=== PATIENT | female | born 1985 | race African-American/Black ===

== ENCOUNTER 2017-02-27 12:17 | Observation (INO) | payer OTHER ==
[~2017-02-27] VITALS: Ht 165.1 cm; Wt 95.3 kg
[~2017-02-27 12:17] MED LIST: ALBU8.5H6 IH; ARIP2TAB PO; BUSP5TAB PO; CHOL100017 PO; DEXL30CA PO; FLUT16SP2 NS; FLUT1DIS IH; GABA-585 PO; MELO-156 PO; MULT-245 PO; RANI75TA95 PO; ZIPR20CA2 PO; [UNRECOGNIZED DRUG - CODE] PO
--- NOTE | 2017-02-27 13:03 | PHYS DOC ---
Past Medical History Past Medical History: Other Additional Past Medical Histor: psuedotumor cerebri Past Surgical History: Other Additional Past Surgical Histo: Adnoidectomy, 2 throat cysts removed. Alcohol Use: None Drug Use: None Adult General Chief Complaint Chief Complaint: PAIN CONTROL HPI HPI Patient is a 31 year old -[place] female who presents with diffuse chest pain. She states started approximately 30 minutes ago. She states it hurts when she coughs. She denies fevers chills nausea vomiting or headache. She 's had a cough for several days. She denies any fevers chills nausea vomiting or shortness of breath. She did take some Robitussin and states that made her feel worse. Review of Systems Review of Systems Constitutional: Denies fever or chills [] Eyes: Denies change in visual acuity, redness, or eye pain [] HENT: Denies nasal congestion or sore throat [] Respiratory: Denies shortness of breath or positive for cough Cardiovascular: No additional information not addressed in HPI [] GI: Denies abdominal pain, nausea, vomiting, bloody stools or diarrhea [] : Denies dysuria or hematuria [] Musculoskeletal: Denies back pain or joint pain [] Integument: Denies rash or skin lesions [] Neurologic: Denies headache, focal weakness or sensory changes [] Endocrine: Denies polyuria or polydipsia [] Current Medications Current Medications Current Medications Medications (Trade) Dose Ordered Sig/Maggy Start Time Stop Time Status Last Admin Dose Admin Aspirin (Children'S Aspirin) 324 mg 1X ONCE 02/27/17 13:45 02/27/17 13:46 DC 02/27/17 13:17 324 MG Morphine Sulfate 2 mg PRN Q15MIN PRN 02/27/17 13:15 02/28/17 13:14 02/27/17 15:22 2 MG Multi-Ingredient Mouthwash/Gargle (Gi Cocktail Single Dose) 15 ml 1X ONCE 02/27/17 15:00 02/27/17 15:01 DC 02/27/17 14:40 15 ML Allergies Allergies Allergies Coded Allergies Type Severity Reaction Last Updated Verified Penicillins Allergy Intermediate Itching 03/31/14 Yes Physical Exam Physical Exam Constitutional: Well developed, well nourished, no acute distress, non-toxic appearance. [] HENT: Normocephalic, atraumatic, bilateral external ears normal, oropharynx moist, no oral exudates, nose normal. [] Eyes: PERRLA, EOMI, conjunctiva normal, no discharge. [] Neck: Normal range of motion, no tenderness, supple, no stridor. [] Cardiovascular:Heart rate regular rhythm, no murmur [] Lungs & Thorax: Bilateral breath sounds clear to auscultation [] Abdomen: Bowel sounds normal, soft, tender to palpation in the right upper quadrant and epigastric area, no masses, no pulsatile masses. [] Skin: Warm, dry, no erythema, no rash. [] Back: No tenderness, no CVA tenderness. [] Extremities: No tenderness, no cyanosis, no clubbing, ROM intact, no edema. [] Neurologic: Alert and oriented X 3, normal motor function, normal sensory function, no focal deficits noted. [] Psychologic: Affect normal, judgement normal, mood normal. [] Current Patient Data Vital Signs Vital Signs Date Time Temp Pulse Resp B/P Pulse Ox O2 Delivery O2 Flow Rate FiO2 02/27/17 15:00 86 29 100 02/27/17 12:17 97.7 111/60 Room Air 97.7 Lab Values Laboratory Tests Test 02/27/17 13:10 White Blood Count 13.3x10^3/uL (4.0-11.0) H Red Blood Count 4.24x10^6/uL (3.50-5.40) Hemoglobin 11.9g/dL (12.0-15.5) L Hematocrit 37.9% (36.0-47.0) Mean Corpuscular Volume 89fL (79-100) Mean Corpuscular Hemoglobin 28pg (25-35) Mean Corpuscular Hemoglobin Concent 32g/dL (31-37) Red Cell Distribution Width 14.2% (11.5-14.5) Platelet Count 171x10^3/uL (140-400) Neutrophils (%) (Auto) 93% (31-73) H Lymphocytes (%) (Auto) 2% (24-48) L Monocytes (%) (Auto) 4% (0-9) Eosinophils (%) (Auto) 0% (0-3) Basophils (%) (Auto) 0% (0-3) Neutrophils # (Auto) 12.4x10^3uL (1.8-7.7) H Lymphocytes # (Auto) 0.2x10^3/uL (1.0-4.8) L Monocytes # (Auto) 0.5x10^3/uL (0.0-1.1) Eosinophils # (Auto) 0.0x10^3/uL (0.0-0.7) Basophils # (Auto) 0.1x10^3/uL (0.0-0.2) Segmented Neutrophils % 81% (35-66) H Band Neutrophils % 13% (0-9) H Lymphocytes % 2% (24-48) L Monocytes % 3% (0-10) Basophils % 1% (0-3) Platelet Estimate Adequate (ADEQUATE) Ovalocytes Few D-Dimer (Shanell) 0.38ug/mlFEU (0.00-0.50) Sodium Level 142mmol/L (136-145) Potassium Level 4.3mmol/L (3.5-5.1) Chloride Level 107mmol/L (98-107) Carbon Dioxide Level 25mmol/L (21-32) Anion Gap 10 (6-14) Blood Urea Nitrogen 8mg/dL (7-20) Creatinine 0.9mg/dL (0.6-1.0) Estimated GFR (Cockcroft-Gault) 89.0 Glucose Level 144mg/dL (70-99) H Calcium Level 9.0mg/dL (8.5-10.1) Magnesium Level 1.7mg/dL (1.8-2.4) L Total Bilirubin 0.8mg/dL (0.2-1.0) Direct Bilirubin 0.1mg/dL (0.0-0.2) Aspartate Amino Transferase (AST) 132U/L (15-37) H Alanine Aminotransferase (ALT) 67U/L (14-59) H Alkaline Phosphatase 115U/L (46-116) Creatine Kinase 1673U/L (26-192) H Creatine Kinase MB (Mass) 0.6ng/mL (0.0-3.6) Creatine Kinase MB Relative Index 0.0% (0-4) Troponin I Quantitative < 0.017ng/mL (0.000-0.055) GP-Bnn-F-Type Natriuretic Peptide 73pg/mL (0-124) Total Protein 7.3g/dL (6.4-8.2) Albumin 3.6g/dL (3.4-5.0) Lipase 134U/L (73-393) Thyroid Stimulating Hormone (TSH) 0.630uIU/mL (0.358-3.74) Laboratory Tests 02/27/17 13:10 Laboratory Tests 02/27/17 13:10 EKG EKG [] Radiology/Procedures Radiology/Procedures [facility] [address] [place] [address] IMAGING REPORT Signed PATIENT: JOSH DELUNA ACCOUNT: [id number] : 1985 LOCATION: ER AGE: 31 SEX: F EXAM STATUS: REG ER ORD. PHYSICIAN: PRESTON PISANO MD REASON: chest pain PROCEDURE: PORTABLE CHEST 1V Portable chest, 02/27/2017: History: Chest pain Comparison is made to a study from 01/30/2014. The heart size and pulmonary vascularity are normal. No pulmonary infiltrates are seen. There is no evidence of pleural fluid. IMPRESSION: No acute cardiopulmonary abnormality is detected. DICTATED and SIGNED BY: ANGEL ROJAS MD DATE: 02/27/17 1331 CC: PRESTON PISANO MD; MINERVA DOAN MD ~ Impressions: Abdominal pain Course & Med Decision Making Course & Med Decision Making Pertinent Labs and Imaging studies reviewed. (See chart for details) D-dimer is negative. She does have pain in her epigastric area and right upper quadrant. We'll admit to the hospitalist and obtained a right upper quadrant ultrasound. Patient is agreeable to plan. She did need to receive Ativan to see if this didn't help her symptoms. Dragon Disclaimer Dragon Disclaimer This electronic medical record was generated, in whole or in part, using a voice recognition dictation system. Departure Departure Impression: Primary Impression: Abdominal pain Disposition: ADMITTED INPATIENT Admitting Physician: Edward James Referrals: MINERVA DOAN MD (PCP) PRESTON PISANO MD Feb 27, 2017 13:03
[2017-02-27] MEDS: MORPHINE SULFATE 2 MG/ML DISP.SYRIN. IV/SQ PRN ×3 (13:17→15:22)
[2017-02-27 13:19] LABS: BASO # 0.1 x10^3/uL (0.0-0.2); BASO % 0 % (0-3); EOS % 0 % (0-3); HEMATOCRIT 37.9 % (36.0-47.0); HEMOGLOBIN 11.9 g/dL (12.0-15.5); LYMPH # 0.2 x10^3/uL (1.0-4.8); LYMPH % 2 % (24-48); MEAN CORPUSCULAR HEMOGLOBIN 28 pg (25-35); MEAN CORPUSCULAR HGB CONC 32 g/dL (31-37); MEAN CORPUSCULAR VOLUME 89 fL (79-100); MONO % 4 % (0-9); NEUT % 93 % (31-73); PLATELET COUNT 171 x10^3/uL (140-400); RED BLOOD COUNT 4.24 x10^6/uL (3.50-5.40); RED CELL DISTRIBUTION WIDTH 14.2 % (11.5-14.5); WHITE BLOOD COUNT 13.3 x10^3/uL (4.0-11.0)
--- NOTE | 2017-02-27 13:34 | RAD ---
Portable chest, 02/27/2017: History: Chest pain Comparison is made to a study from 01/30/2014. The heart size and pulmonary vascularity are normal. No pulmonary infiltrates are seen. There is no evidence of pleural fluid. IMPRESSION: No acute cardiopulmonary abnormality is detected.
[2017-02-27] MEDS ORDERED: ASPIRIN CHEWABLE 81 MG TABLET. PO ONE (13:45)
[2017-02-27 13:47] LABS: CREATININE 0.9 mg/dL (0.6-1.0); POTASSIUM 4.3 mmol/L (3.5-5.1)
[2017-02-27 13:53] LABS: ALBUMIN 3.6 g/dL (3.4-5.0); DIRECT BILIRUBIN 0.1 mg/dL (0.0-0.2); MAGNESIUM 1.7 mg/dL (1.8-2.4); TOTAL BILIRUBIN 0.8 mg/dL (0.2-1.0); TOTAL PROTEIN 7.3 g/dL (6.4-8.2)
[2017-02-27 14:00] LABS: CKMB MASS 0.6 ng/mL (0.0-3.6)
[2017-02-27 14:05] LABS: % BASOS 1 % (0-3); OVALOCYTES FEW; PLT ESTIMATE ADEQUATE (ADEQUATE)
[2017-02-27] MEDS ORDERED: LIDO:MAALOX:DONNATAL 1:1:1 15 ML SINGLE DOSE SWSW ONE (15:00)
[2017-02-27] MEDS ORDERED: FENTANYL PF 100 MCG/2 ML VIAL. IV PRN (15:15)
[2017-02-27] MEDS ORDERED: ONDANSETRON PF 4 MG/2 ML VIAL. IV PRN ×2 (15:15→16:45)
--- NOTE | 2017-02-27 15:17 | EKG ---
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
[2017-02-27] MEDS ORDERED: LORAZEPAM 2 MG/ML VIAL. IV ONE (15:45)
--- NOTE | 2017-02-27 16:07 | RAD ---
Right upper quadrant abdominal ultrasound, 02/27/2017: History: Abdominal pain, abnormal liver function test The gallbladder is within normal limits in size. There is a small echogenic focus in the gallbladder neck with faint posterior acoustic shadowing. This is probably a gallstone. There is a fold or partial septation in the upper portion of the gallbladder. The gallbladder ibrahim are not thickened. The patient was reportedly tender to transducer pressure over the gallbladder region. No bile duct dilatation is evident. The distal common bile duct and pancreas were obscured by overlying bowel. The visualized portions of liver and right kidney are unremarkable. IMPRESSION: Probable cholelithiasis.
[2017-02-27] MEDS ORDERED: IV NORMAL SALINE 1000ML BAG 1,000 ML IV ONE (16:15)
[2017-02-27] MEDS ORDERED: ACETAMINOPHEN 325 MG TABLET. PO PRN (16:45)
--- NOTE | 2017-02-27 16:48 | PDOC1 ---
History and Physical Date of Admission Date of Admission 02/27/17 Identification/Chief Complaint Chief Complaint chest pain Problems: Source Source: Chart review, Patient History of Present Illness History of Present Illness HPI HPI Patient is a 31 year old -Pakistani female who presents with chest pain today. Pt started to have substernal chest pain today, achy, with left shoulder pain, bl rib cage pain, no N/V. But feels sweating, feeling of passing out, subjective fever. Denies tenderness or abd pain. She has been having mild non productive cough, chest pain is worse when cough. She did take some Robitussin and states that made her feel worse. chronic behecet syndrom, fu rheum in [facility], symptom is controlled as per pt. in ER, was found high LFT, ck. LFT is same as 2 years ago. Past Medical History Past Medical History psuedotumor cerebri behecet dz Past Surgical History Past Surgical History Adnoidectomy, 2 throat cysts removed Family History Family History: Coronary Artery Disease Social History Smoke: No ALCOHOL: none Drugs: None Current Problem List Problem List Problems Medical Problems: (1) Abdominal pain Status: Acute Current Medications Current Medications Current Medications Medications (Trade) Dose Ordered Sig/Maggy Start Time Stop Time Status Last Admin Dose Admin Aspirin (Children'S Aspirin) 324 mg 1X ONCE 02/27/17 13:45 02/27/17 13:46 DC 02/27/17 13:17 324 MG Fentanyl Citrate (Fentanyl 2ml Vial) 50 mcg PRN Q2HR PRN 02/27/17 15:15 02/28/17 15:14 Lorazepam 1 mg 1 mg 1X ONCE 02/27/17 15:45 02/27/17 15:46 DC 02/27/17 15:46 1 MG Morphine Sulfate 2 mg PRN Q15MIN PRN 02/27/17 13:15 02/28/17 13:14 02/27/17 15:22 2 MG Multi-Ingredient Mouthwash/Gargle (Gi Cocktail Single Dose) 15 ml 1X ONCE 02/27/17 15:00 02/27/17 15:01 DC 02/27/17 14:40 15 ML Ondansetron HCl (Zofran) 4 mg PRN Q8HRS PRN 02/27/17 15:15 02/28/17 15:14 Sodium Chloride (Iv Sodium Chloride 0.9% 1000ml Bag) 1,000 ml @ 1,000 mls/hr 1X ONCE 02/27/17 16:15 02/27/17 17:14 Allergies Allergies Allergies Coded Allergies Type Severity Reaction Last Updated Verified Penicillins Allergy Intermediate Itching 03/31/14 Yes adhesive Allergy Mild bruising 03/31/14 No ROS Review of System CONSTITUTIONAL: No fever or chills EYES: No recent changes SKIN: No rash or itching CARDIOVASCULAR: No chest pain, syncope, palpitations, or edema RESPIRATORY: No SOB or cough GASTROINTESTINAL: No nausea, vomiting or abdominal pain NEUROLOGICAL: No headaches or weakness ENDOCRINE: No cold or heat intolerance GENITOURINARY: No urgency or frequency of urination MUSCULOSKELETAL: No back pain or joint pain LYMPHATICS: No enlarged lymph nodes PSYCHIATRIC: No anxiety or depression Physical Exam Physical Exam GEN.: No apparent distress. Alert and oriented. HEENT: Head is normocephalic, atraumatic NECK: Supple. LUNGS: Clear to auscultation. HEART: RRR, S1, S2 present. Peripheral pulses intact ABDOMEN: Soft, nontender. Positive bowel sounds. EXTREMITIES: Without any cyanosis. NEUROLOGIC: Normal speech, normal tone PSYCHIATRIC: Normal affect, normal mood. SKIN: No ulcerations Vitals Vitals Vital Signs Date Time Temp Pulse Resp B/P Pulse Ox O2 Delivery O2 Flow Rate FiO2 02/27/17 15:22 24 100 Room Air 02/27/17 14:00 90 02/27/17 12:17 97.7 111/60 97.7 Labs Labs Laboratory Tests Test 02/27/17 13:10 White Blood Count 13.3x10^3/uL (4.0-11.0) Red Blood Count 4.24x10^6/uL (3.50-5.40) Hemoglobin 11.9g/dL (12.0-15.5) Hematocrit 37.9% (36.0-47.0) Mean Corpuscular Volume 89fL (79-100) Mean Corpuscular Hemoglobin 28pg (25-35) Mean Corpuscular Hemoglobin Concent 32g/dL (31-37) Red Cell Distribution Width 14.2% (11.5-14.5) Platelet Count 171x10^3/uL (140-400) Neutrophils (%) (Auto) 93% (31-73) Lymphocytes (%) (Auto) 2% (24-48) Monocytes (%) (Auto) 4% (0-9) Eosinophils (%) (Auto) 0% (0-3) Basophils (%) (Auto) 0% (0-3) Neutrophils # (Auto) 12.4x10^3uL (1.8-7.7) Lymphocytes # (Auto) 0.2x10^3/uL (1.0-4.8) Monocytes # (Auto) 0.5x10^3/uL (0.0-1.1) Eosinophils # (Auto) 0.0x10^3/uL (0.0-0.7) Basophils # (Auto) 0.1x10^3/uL (0.0-0.2) Segmented Neutrophils % 81% (35-66) Band Neutrophils % 13% (0-9) Lymphocytes % 2% (24-48) Monocytes % 3% (0-10) Basophils % 1% (0-3) Platelet Estimate Adequate (ADEQUATE) Ovalocytes Few D-Dimer (Shanell) 0.38ug/mlFEU (0.00-0.50) Sodium Level 142mmol/L (136-145) Potassium Level 4.3mmol/L (3.5-5.1) Chloride Level 107mmol/L (98-107) Carbon Dioxide Level 25mmol/L (21-32) Anion Gap 10 (6-14) Blood Urea Nitrogen 8mg/dL (7-20) Creatinine 0.9mg/dL (0.6-1.0) Estimated GFR (Cockcroft-Gault) 89.0 Glucose Level 144mg/dL (70-99) Calcium Level 9.0mg/dL (8.5-10.1) Magnesium Level 1.7mg/dL (1.8-2.4) Total Bilirubin 0.8mg/dL (0.2-1.0) Direct Bilirubin 0.1mg/dL (0.0-0.2) Aspartate Amino Transf (AST/SGOT) 132U/L (15-37) Alanine Aminotransferase (ALT/SGPT) 67U/L (14-59) Alkaline Phosphatase 115U/L (46-116) Creatine Kinase 1673U/L (26-192) Creatine Kinase MB (Mass) 0.6ng/mL (0.0-3.6) Creatine Kinase MB Relative Index 0.0% (0-4) Troponin I Quantitative < 0.017ng/mL (0.000-0.055) FF-Rwq-C-Type Natriuretic Peptide 73pg/mL (0-124) Total Protein 7.3g/dL (6.4-8.2) Albumin 3.6g/dL (3.4-5.0) Lipase 134U/L (73-393) Thyroid Stimulating Hormone (TSH) 0.630uIU/mL (0.358-3.74) Laboratory Tests Test 02/27/17 13:10 White Blood Count 13.3x10^3/uL (4.0-11.0) Red Blood Count 4.24x10^6/uL (3.50-5.40) Hemoglobin 11.9g/dL (12.0-15.5) Hematocrit 37.9% (36.0-47.0) Mean Corpuscular Volume 89fL (79-100) Mean Corpuscular Hemoglobin 28pg (25-35) Mean Corpuscular Hemoglobin Concent 32g/dL (31-37) Red Cell Distribution Width 14.2% (11.5-14.5) Platelet Count 171x10^3/uL (140-400) Neutrophils (%) (Auto) 93% (31-73) Lymphocytes (%) (Auto) 2% (24-48) Monocytes (%) (Auto) 4% (0-9) Eosinophils (%) (Auto) 0% (0-3) Basophils (%) (Auto) 0% (0-3) Neutrophils # (Auto) 12.4x10^3uL (1.8-7.7) Lymphocytes # (Auto) 0.2x10^3/uL (1.0-4.8) Monocytes # (Auto) 0.5x10^3/uL (0.0-1.1) Eosinophils # (Auto) 0.0x10^3/uL (0.0-0.7) Basophils # (Auto) 0.1x10^3/uL (0.0-0.2) Segmented Neutrophils % 81% (35-66) Band Neutrophils % 13% (0-9) Lymphocytes % 2% (24-48) Monocytes % 3% (0-10) Basophils % 1% (0-3) Platelet Estimate Adequate (ADEQUATE) Ovalocytes Few D-Dimer (Shanell) 0.38ug/mlFEU (0.00-0.50) Sodium Level 142mmol/L (136-145) Potassium Level 4.3mmol/L (3.5-5.1) Chloride Level 107mmol/L (98-107) Carbon Dioxide Level 25mmol/L (21-32) Anion Gap 10 (6-14) Blood Urea Nitrogen 8mg/dL (7-20) Creatinine 0.9mg/dL (0.6-1.0) Estimated GFR (Cockcroft-Gault) 89.0 Glucose Level 144mg/dL (70-99) Calcium Level 9.0mg/dL (8.5-10.1) Magnesium Level 1.7mg/dL (1.8-2.4) Total Bilirubin 0.8mg/dL (0.2-1.0) Direct Bilirubin 0.1mg/dL (0.0-0.2) Aspartate Amino Transf (AST/SGOT) 132U/L (15-37) Alanine Aminotransferase (ALT/SGPT) 67U/L (14-59) Alkaline Phosphatase 115U/L (46-116) Creatine Kinase 1673U/L (26-192) Creatine Kinase MB (Mass) 0.6ng/mL (0.0-3.6) Creatine Kinase MB Relative Index 0.0% (0-4) Troponin I Quantitative < 0.017ng/mL (0.000-0.055) SU-Vfv-I-Type Natriuretic Peptide 73pg/mL (0-124) Total Protein 7.3g/dL (6.4-8.2) Albumin 3.6g/dL (3.4-5.0) Lipase 134U/L (73-393) Thyroid Stimulating Hormone (TSH) 0.630uIU/mL (0.358-3.74) VTE Prophylaxis Ordered VTE Prophylaxis Devices: Yes VTE Pharmacological Prophylaxi: Yes Assessment/Plan Assessment/Plan 1. chest pain, need to rule out unstable angina 2. behcet dz, chronic 3. obesity 4. depression 5. elevated transaminites 6. high CK 7. possible cholelithiasis in [place] wo abd pain plan: 1. card, gi consult 2. repeat CE, lipid panel, LFT, CK echo 3. cont home meds, need to verify dvt , gi ppx ASHLIE FITZGERALD MD Feb 27, 2017 16:48
[2017-02-27 17:00] VITALS: BP 105/57
[2017-02-27] MEDS ORDERED: ALBUTEROL SULFATE 2.5 MG/3 ML NEBU. NEB PRN (17:00)
[2017-02-27] MEDS: ENOXAPARIN 40 MG/0.4 ML SYRINGE. SQ SCH (18:00)
[2017-02-27 19:30] VITALS: BP 105/68
[2017-02-27] MEDS ORDERED: GABAPENTIN 100 MG CAPSULE. PO SCH (21:00)
[2017-02-27 23:20] VITALS: BP 111/68
[2017-02-28] VITALS (11 sets, daily range): BP systolic 99–117; BP diastolic 59–75
[2017-02-28 04:09] LABS: BASO % 0 % (0-3); EOS % 2 % (0-3); HEMATOCRIT 32.8 % (36.0-47.0); HEMOGLOBIN 10.5 g/dL (12.0-15.5); LYMPH # 1.1 x10^3/uL (1.0-4.8); LYMPH % 16 % (24-48); MEAN CORPUSCULAR HEMOGLOBIN 28 pg (25-35); MEAN CORPUSCULAR HGB CONC 32 g/dL (31-37); MEAN CORPUSCULAR VOLUME 88 fL (79-100); MONO % 12 % (0-9); NEUT % 71 % (31-73); PLATELET COUNT 160 x10^3/uL (140-400); RED BLOOD COUNT 3.71 x10^6/uL (3.50-5.40); WHITE BLOOD COUNT 7.1 x10^3/uL (4.0-11.0)
[2017-02-28 04:28] LABS: ALBUMIN 2.9 g/dL (3.4-5.0); ALBUMIN/GLOBULIN RATIO 0.9 (1.0-1.7); CALCIUM 8.5 mg/dL (8.5-10.1); CREATININE 0.8 mg/dL (0.6-1.0); GFR 101.9; POTASSIUM 3.9 mmol/L (3.5-5.1); TOTAL BILIRUBIN 0.5 mg/dL (0.2-1.0); TOTAL PROTEIN 6.1 g/dL (6.4-8.2)
[2017-02-28 05:02] LABS: DIRECT BILIRUBIN 0.1 mg/dL (0.0-0.2); TOTAL BILIRUBIN 0.5 mg/dL (0.2-1.0); TOTAL PROTEIN 6.2 g/dL (6.4-8.2)
[2017-02-28 05:11] LABS: CHOLESTEROL/HDL RATIO 2.4
[2017-02-28 05:15] LABS: CKMB MASS 0.5 ng/mL (0.0-3.6)
[2017-02-28] MEDS: GUAIFENESIN/CODEINE 100mg/10mg 5 ML LIQUID. PO PRN ×2 (06:17→19:59)
[2017-02-28] MEDS: busPIRone 5 MG TABLET. PO SCH (09:00)
--- NOTE | 2017-02-28 09:04 | PDOC2 ---
GI CONSULT Reason For Consult: High LFTs HPI: HPI: 31 y/o AA female evaluated in the ER for pain under ribs radiating to midchest and left shoulder. Pain began yesterday after taking Robitussin (for 4 days of dry cough w/ stuffy nose) and eating cereal. Aggravating factors include laying down. No similar symptoms previously. Cardiology has been asked to see ; she is to have an echocardiogram shortly. Currently only has pain in left shoulder. GI asked to see re: abnormal LFTs. Labs include: Hgb 11.9 (now 10.5) , elevated CPK, AST 132 (now 122), ALT 67 (now 116), Alk Phos 115 (now 123). H/ o some elevation in transaminases in 2014 (AST 111, ALT 63). Abd US showed probable cholelithiasis. PMH is significant for Behcet's disease; she reports h/o oral, genital, and stomach ulcers w/ skin lesions and has been on Imuran for about 4 months. Additional h/o GERD w/ good control on Dexilant QD and ranitidine PRN. Believes had EGD @ [facility] which revealed a gastric ulcer ~2 years ago, also recalls previously colonoscopy (unsure where, unsure results). Denies diarrhea or constipation. Has occasional bleeding (bright red blood on the toilet tissue ). Denies NSAID use (note home med list includes Meloxicam which she denies). Denies weight loss, n/v. PMH: PMH: Behcet's (follows w/ rheum at [facility], h/o oral/genital/GI ulcers and skin lesions), asthma, depression, GERD, pseudotumor cerebri, tonsillectomy FH: Family History: No pertinent hx Social History: Smoke: No ALCOHOL: none Drugs: None ROS: GEN: Denies fevers, chills, sweats HEENT: Denies blurred vision, sore throat CV: Denies chest pain RESP: Denies shortness of air, cough GI: Per HPI : Denies hematuria, dysuria ENDO: Denies weight changes NEURO: Denies confusion, dizziness MSK: Denies weakness, joint pain/swelling SKIN: Denies jaundice, pruritus VItals: Vitals: Vital Signs Date Time Temp Pulse Resp B/P Pulse Ox O2 Delivery O2 Flow Rate FiO2 02/28/17 07:00 97.9 78 18 99/63 98 Room Air 97.9 Labs: Labs: Laboratory Tests Test 02/27/17 13:10 02/27/17 18:41 02/28/17 03:25 02/28/17 03:55 White Blood Count 13.3x10^3/uL (4.0-11.0) 7.1x10^3/uL (4.0-11.0) Red Blood Count 4.24x10^6/uL (3.50-5.40) 3.71x10^6/uL (3.50-5.40) Hemoglobin 11.9g/dL (12.0-15.5) 10.5g/dL (12.0-15.5) Hematocrit 37.9% (36.0-47.0) 32.8% (36.0-47.0) Mean Corpuscular Volume 89fL (79-100) 88fL (79-100) Mean Corpuscular Hemoglobin 28pg (25-35) 28pg (25-35) Mean Corpuscular Hemoglobin Concent 32g/dL (31-37) 32g/dL (31-37) Red Cell Distribution Width 14.2% (11.5-14.5) 14.0% (11.5-14.5) Platelet Count 171x10^3/uL (140-400) 160x10^3/uL (140-400) Neutrophils (%) (Auto) 93% (31-73) 71% (31-73) Lymphocytes (%) (Auto) 2% (24-48) 16% (24-48) Monocytes (%) (Auto) 4% (0-9) 12% (0-9) Eosinophils (%) (Auto) 0% (0-3) 2% (0-3) Basophils (%) (Auto) 0% (0-3) 0% (0-3) Neutrophils # (Auto) 12.4x10^3uL (1.8-7.7) 5.0x10^3uL (1.8-7.7) Lymphocytes # (Auto) 0.2x10^3/uL (1.0-4.8) 1.1x10^3/uL (1.0-4.8) Monocytes # (Auto) 0.5x10^3/uL (0.0-1.1) 0.8x10^3/uL (0.0-1.1) Eosinophils # (Auto) 0.0x10^3/uL (0.0-0.7) 0.1x10^3/uL (0.0-0.7) Basophils # (Auto) 0.1x10^3/uL (0.0-0.2) 0.0x10^3/uL (0.0-0.2) Segmented Neutrophils % 81% (35-66) Band Neutrophils % 13% (0-9) Lymphocytes % 2% (24-48) Monocytes % 3% (0-10) Basophils % 1% (0-3) Platelet Estimate Adequate (ADEQUATE) Ovalocytes Few D-Dimer (Shanell) 0.38ug/mlFEU (0.00-0.50) Sodium Level 142mmol/L (136-145) 143mmol/L (136-145) Potassium Level 4.3mmol/L (3.5-5.1) 3.9mmol/L (3.5-5.1) Chloride Level 107mmol/L (98-107) 109mmol/L (98-107) Carbon Dioxide Level 25mmol/L (21-32) 26mmol/L (21-32) Anion Gap 10 (6-14) 8 (6-14) Blood Urea Nitrogen 8mg/dL (7-20) 7mg/dL (7-20) Creatinine 0.9mg/dL (0.6-1.0) 0.8mg/dL (0.6-1.0) Estimated GFR (Cockcroft-Gault) 89.0 101.9 Glucose Level 144mg/dL (70-99) 80mg/dL (70-99) Calcium Level 9.0mg/dL (8.5-10.1) 8.5mg/dL (8.5-10.1) Magnesium Level 1.7mg/dL (1.8-2.4) Total Bilirubin 0.8mg/dL (0.2-1.0) 0.5mg/dL (0.2-1.0) Direct Bilirubin 0.1mg/dL (0.0-0.2) 0.1mg/dL (0.0-0.2) Aspartate Amino Transf (AST/SGOT) 132U/L (15-37) 122U/L (15-37) Alanine Aminotransferase (ALT/SGPT) 67U/L (14-59) 116U/L (14-59) Alkaline Phosphatase 115U/L (46-116) 123U/L (46-116) Creatine Kinase 1673U/L (26-192) 1388U/L (26-192) Creatine Kinase MB (Mass) 0.6ng/mL (0.0-3.6) 0.5ng/mL (0.0-3.6) Creatine Kinase MB Relative Index 0.0% (0-4) 0.0% (0-4) Troponin I Quantitative < 0.017ng/mL (0.000-0.055) < 0.017ng/mL (0.000-0.055) < 0.017ng/mL (0.000-0.055) MO-Xwp-F-Type Natriuretic Peptide 73pg/mL (0-124) Total Protein 7.3g/dL (6.4-8.2) 6.2g/dL (6.4-8.2) Albumin 3.6g/dL (3.4-5.0) 3.0g/dL (3.4-5.0) Lipase 134U/L (73-393) Thyroid Stimulating Hormone (TSH) 0.630uIU/mL (0.358-3.74) BUN/Creatinine Ratio 9 (6-20) Albumin/Globulin Ratio 0.9 (1.0-1.7) Triglycerides Level 26mg/dL (0-150) Cholesterol Level 149mg/dL (0-200) LDL Cholesterol, Calculated 83mg/dL (0-100) VLDL Cholesterol, Calculated 5mg/dL (0-40) HDL Cholesterol 61mg/dL (40-60) Cholesterol/HDL Ratio 2.4 Allergies: Coded Allergies: Penicillins (Verified Allergy, Intermediate, Itching, 03/31/14) adhesive (Verified Allergy, Mild, bruising, 02/28/17) Medications: Current Medications Medications (Trade) Dose Ordered Sig/Maggy Route PRN Reason Start Time Stop Time Status Last Admin Dose Admin Aspirin (Children'S Aspirin) 324 mg 1X ONCE PO 02/27/17 13:45 02/27/17 13:46 DC 02/27/17 13:17 Morphine Sulfate 2 mg PRN Q15MIN PRN IV/SQ PAIN GREATER THAN 3/10 02/27/17 13:15 02/28/17 13:14 02/27/17 15:22 Multi-Ingredient Mouthwash/Gargle (Gi Cocktail Single Dose) 15 ml 1X ONCE SWSW 02/27/17 15:00 02/27/17 15:01 DC 02/27/17 14:40 Lorazepam 1 mg 1 mg 1X ONCE IV 02/27/17 15:45 02/27/17 15:46 DC 02/27/17 15:46 Sodium Chloride (Iv Sodium Chloride 0.9% 1000ml Bag) 1,000 ml @ 1,000 mls/hr 1X ONCE IV 02/27/17 16:15 02/27/17 17:14 DC 02/27/17 16:15 Guaifenesin/ Codeine Phosphate (Robitussin Ac) 5 ml PRN Q6HRS PRN PO COUGH 02/27/17 16:45 02/28/17 06:17 Imaging: Imaging: CXR IMPRESSION: No acute cardiopulmonary abnormality is detected. Abd US The gallbladder is within normal limits in size. There is a small echogenic focus in the gallbladder neck with faint posterior acoustic shadowing. This is probably a gallstone. There is a fold or partial septation in the upper portion of the gallbladder. The gallbladder ibrahim are not thickened. The patient was reportedly tender to transducer pressure over the gallbladder region. No bile duct dilatation is evident. The distal common bile duct and pancreas were obscured by overlying bowel. The visualized portions of liver and right kidney are unremarkable. IMPRESSION: Probable cholelithiasis. 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 Will check additional labs: Hep panel, GARRETT, AMA, ASMA. ?LFTs related to Imuran Update: EGD w/ Dr. De La Cruz 09/2013: normal esophagus, stomach, duodenum, empiric esophageal dilation to 52Fr. Random esophagus biopsies w/ increased inflammation (no Smith's or EoE), random gastric biopsy negative for H. pylori. [facility] Feb 28, 2017 09:04
--- NOTE | 2017-02-28 09:36 | PDOC ---
PROGRESS NOTES Chief Complaint Chief Complaint Chest/shoulder pain, elevated CPK asthma obesity BMI 35 Elevated LFTs, abnormal abd US, possible cholelithiasis H/o Behcet's on Imuran GERD History of Present Illness History of Present Illness pain with deep breathing cough for days discussed with CV, plan echo, risk low + traore sign on US report Vitals Vitals Vital Signs Date Time Temp Pulse Resp B/P Pulse Ox O2 Delivery O2 Flow Rate FiO2 02/28/17 07:00 97.9 78 18 99/63 98 Room Air 97.9 Physical Exam General: Alert, Oriented X3, Cooperative, No acute distress Heart: Regular rate, No murmurs Lungs: Clear Abdomen: Soft (obese) Extremities: No clubbing, No cyanosis Skin: No rashes Labs LABS Laboratory Tests Test 02/27/17 13:10 02/27/17 18:41 02/28/17 03:25 02/28/17 03:55 White Blood Count 13.3x10^3/uL (4.0-11.0) 7.1x10^3/uL (4.0-11.0) Red Blood Count 4.24x10^6/uL (3.50-5.40) 3.71x10^6/uL (3.50-5.40) Hemoglobin 11.9g/dL (12.0-15.5) 10.5g/dL (12.0-15.5) Hematocrit 37.9% (36.0-47.0) 32.8% (36.0-47.0) Mean Corpuscular Volume 89fL (79-100) 88fL (79-100) Mean Corpuscular Hemoglobin 28pg (25-35) 28pg (25-35) Mean Corpuscular Hemoglobin Concent 32g/dL (31-37) 32g/dL (31-37) Red Cell Distribution Width 14.2% (11.5-14.5) 14.0% (11.5-14.5) Platelet Count 171x10^3/uL (140-400) 160x10^3/uL (140-400) Neutrophils (%) (Auto) 93% (31-73) 71% (31-73) Lymphocytes (%) (Auto) 2% (24-48) 16% (24-48) Monocytes (%) (Auto) 4% (0-9) 12% (0-9) Eosinophils (%) (Auto) 0% (0-3) 2% (0-3) Basophils (%) (Auto) 0% (0-3) 0% (0-3) Neutrophils # (Auto) 12.4x10^3uL (1.8-7.7) 5.0x10^3uL (1.8-7.7) Lymphocytes # (Auto) 0.2x10^3/uL (1.0-4.8) 1.1x10^3/uL (1.0-4.8) Monocytes # (Auto) 0.5x10^3/uL (0.0-1.1) 0.8x10^3/uL (0.0-1.1) Eosinophils # (Auto) 0.0x10^3/uL (0.0-0.7) 0.1x10^3/uL (0.0-0.7) Basophils # (Auto) 0.1x10^3/uL (0.0-0.2) 0.0x10^3/uL (0.0-0.2) Segmented Neutrophils % 81% (35-66) Band Neutrophils % 13% (0-9) Lymphocytes % 2% (24-48) Monocytes % 3% (0-10) Basophils % 1% (0-3) Platelet Estimate Adequate (ADEQUATE) Ovalocytes Few D-Dimer (Shanell) 0.38ug/mlFEU (0.00-0.50) Sodium Level 142mmol/L (136-145) 143mmol/L (136-145) Potassium Level 4.3mmol/L (3.5-5.1) 3.9mmol/L (3.5-5.1) Chloride Level 107mmol/L (98-107) 109mmol/L (98-107) Carbon Dioxide Level 25mmol/L (21-32) 26mmol/L (21-32) Anion Gap 10 (6-14) 8 (6-14) Blood Urea Nitrogen 8mg/dL (7-20) 7mg/dL (7-20) Creatinine 0.9mg/dL (0.6-1.0) 0.8mg/dL (0.6-1.0) Estimated GFR (Cockcroft-Gault) 89.0 101.9 Glucose Level 144mg/dL (70-99) 80mg/dL (70-99) Calcium Level 9.0mg/dL (8.5-10.1) 8.5mg/dL (8.5-10.1) Magnesium Level 1.7mg/dL (1.8-2.4) Total Bilirubin 0.8mg/dL (0.2-1.0) 0.5mg/dL (0.2-1.0) Direct Bilirubin 0.1mg/dL (0.0-0.2) 0.1mg/dL (0.0-0.2) Aspartate Amino Transf (AST/SGOT) 132U/L (15-37) 122U/L (15-37) Alanine Aminotransferase (ALT/SGPT) 67U/L (14-59) 116U/L (14-59) Alkaline Phosphatase 115U/L (46-116) 123U/L (46-116) Creatine Kinase 1673U/L (26-192) 1388U/L (26-192) Creatine Kinase MB (Mass) 0.6ng/mL (0.0-3.6) 0.5ng/mL (0.0-3.6) Creatine Kinase MB Relative Index 0.0% (0-4) 0.0% (0-4) Troponin I Quantitative < 0.017ng/mL (0.000-0.055) < 0.017ng/mL (0.000-0.055) < 0.017ng/mL (0.000-0.055) QK-Gjm-[id number]-Type Natriuretic Peptide 73pg/mL (0-124) Total Protein 7.3g/dL (6.4-8.2) 6.2g/dL (6.4-8.2) Albumin 3.6g/dL (3.4-5.0) 3.0g/dL (3.4-5.0) Lipase 134U/L (73-393) Thyroid Stimulating Hormone (TSH) 0.630uIU/mL (0.358-3.74) BUN/Creatinine Ratio 9 (6-20) Albumin/Globulin Ratio 0.9 (1.0-1.7) Triglycerides Level 26mg/dL (0-150) Cholesterol Level 149mg/dL (0-200) LDL Cholesterol, Calculated 83mg/dL (0-100) VLDL Cholesterol, Calculated 5mg/dL (0-40) HDL Cholesterol 61mg/dL (40-60) Cholesterol/HDL Ratio 2.4 Review of Systems Review of Systems no n.vd. abd pain Assessment and Plan Assessmemt and Plan consult gen surg. transaminitis no clear cholecystitis, stone on US only Problems Medical Problems: (1) Abdominal pain Status: Acute Problems: Comment Review of Relevant I have reviewed the following items grupo (where applicable) has been applied. Labs Laboratory Tests Test 02/27/17 13:10 02/27/17 18:41 02/28/17 03:25 02/28/17 03:55 White Blood Count 13.3x10^3/uL (4.0-11.0) 7.1x10^3/uL (4.0-11.0) Red Blood Count 4.24x10^6/uL (3.50-5.40) 3.71x10^6/uL (3.50-5.40) Hemoglobin 11.9g/dL (12.0-15.5) 10.5g/dL (12.0-15.5) Hematocrit 37.9% (36.0-47.0) 32.8% (36.0-47.0) Mean Corpuscular Volume 89fL (79-100) 88fL (79-100) Mean Corpuscular Hemoglobin 28pg (25-35) 28pg (25-35) Mean Corpuscular Hemoglobin Concent 32g/dL (31-37) 32g/dL (31-37) Red Cell Distribution Width 14.2% (11.5-14.5) 14.0% (11.5-14.5) Platelet Count 171x10^3/uL (140-400) 160x10^3/uL (140-400) Neutrophils (%) (Auto) 93% (31-73) 71% (31-73) Lymphocytes (%) (Auto) 2% (24-48) 16% (24-48) Monocytes (%) (Auto) 4% (0-9) 12% (0-9) Eosinophils (%) (Auto) 0% (0-3) 2% (0-3) Basophils (%) (Auto) 0% (0-3) 0% (0-3) Neutrophils # (Auto) 12.4x10^3uL (1.8-7.7) 5.0x10^3uL (1.8-7.7) Lymphocytes # (Auto) 0.2x10^3/uL (1.0-4.8) 1.1x10^3/uL (1.0-4.8) Monocytes # (Auto) 0.5x10^3/uL (0.0-1.1) 0.8x10^3/uL (0.0-1.1) Eosinophils # (Auto) 0.0x10^3/uL (0.0-0.7) 0.1x10^3/uL (0.0-0.7) Basophils # (Auto) 0.1x10^3/uL (0.0-0.2) 0.0x10^3/uL (0.0-0.2) Segmented Neutrophils % 81% (35-66) Band Neutrophils % 13% (0-9) Lymphocytes % 2% (24-48) Monocytes % 3% (0-10) Basophils % 1% (0-3) Platelet Estimate Adequate (ADEQUATE) Ovalocytes Few D-Dimer (Shanell) 0.38ug/mlFEU (0.00-0.50) Sodium Level 142mmol/L (136-145) 143mmol/L (136-145) Potassium Level 4.3mmol/L (3.5-5.1) 3.9mmol/L (3.5-5.1) Chloride Level 107mmol/L (98-107) 109mmol/L (98-107) Carbon Dioxide Level 25mmol/L (21-32) 26mmol/L (21-32) Anion Gap 10 (6-14) 8 (6-14) Blood Urea Nitrogen 8mg/dL (7-20) 7mg/dL (7-20) Creatinine 0.9mg/dL (0.6-1.0) 0.8mg/dL (0.6-1.0) Estimated GFR (Cockcroft-Gault) 89.0 101.9 Glucose Level 144mg/dL (70-99) 80mg/dL (70-99) Calcium Level 9.0mg/dL (8.5-10.1) 8.5mg/dL (8.5-10.1) Magnesium Level 1.7mg/dL (1.8-2.4) Total Bilirubin 0.8mg/dL (0.2-1.0) 0.5mg/dL (0.2-1.0) Direct Bilirubin 0.1mg/dL (0.0-0.2) 0.1mg/dL (0.0-0.2) Aspartate Amino Transf (AST/SGOT) 132U/L (15-37) 122U/L (15-37) Alanine Aminotransferase (ALT/SGPT) 67U/L (14-59) 116U/L (14-59) Alkaline Phosphatase 115U/L (46-116) 123U/L (46-116) Creatine Kinase 1673U/L (26-192) 1388U/L (26-192) Creatine Kinase MB (Mass) 0.6ng/mL (0.0-3.6) 0.5ng/mL (0.0-3.6) Creatine Kinase MB Relative Index 0.0% (0-4) 0.0% (0-4) Troponin I Quantitative < 0.017ng/mL (0.000-0.055) < 0.017ng/mL (0.000-0.055) < 0.017ng/mL (0.000-0.055) SZ-Etc-I-Type Natriuretic Peptide 73pg/mL (0-124) Total Protein 7.3g/dL (6.4-8.2) 6.2g/dL (6.4-8.2) Albumin 3.6g/dL (3.4-5.0) 3.0g/dL (3.4-5.0) Lipase 134U/L (73-393) Thyroid Stimulating Hormone (TSH) 0.630uIU/mL (0.358-3.74) BUN/Creatinine Ratio 9 (6-20) Albumin/Globulin Ratio 0.9 (1.0-1.7) Triglycerides Level 26mg/dL (0-150) Cholesterol Level 149mg/dL (0-200) LDL Cholesterol, Calculated 83mg/dL (0-100) VLDL Cholesterol, Calculated 5mg/dL (0-40) HDL Cholesterol 61mg/dL (40-60) Cholesterol/HDL Ratio 2.4 Laboratory Tests Test 02/27/17 13:10 02/27/17 18:41 02/28/17 03:25 02/28/17 03:55 White Blood Count 13.3x10^3/uL (4.0-11.0) 7.1x10^3/uL (4.0-11.0) Red Blood Count 4.24x10^6/uL (3.50-5.40) 3.71x10^6/uL (3.50-5.40) Hemoglobin 11.9g/dL (12.0-15.5) 10.5g/dL (12.0-15.5) Hematocrit 37.9% (36.0-47.0) 32.8% (36.0-47.0) Mean Corpuscular Volume 89fL (79-100) 88fL (79-100) Mean Corpuscular Hemoglobin 28pg (25-35) 28pg (25-35) Mean Corpuscular Hemoglobin Concent 32g/dL (31-37) 32g/dL (31-37) Red Cell Distribution Width 14.2% (11.5-14.5) 14.0% (11.5-14.5) Platelet Count 171x10^3/uL (140-400) 160x10^3/uL (140-400) Neutrophils (%) (Auto) 93% (31-73) 71% (31-73) Lymphocytes (%) (Auto) 2% (24-48) 16% (24-48) Monocytes (%) (Auto) 4% (0-9) 12% (0-9) Eosinophils (%) (Auto) 0% (0-3) 2% (0-3) Basophils (%) (Auto) 0% (0-3) 0% (0-3) Neutrophils # (Auto) 12.4x10^3uL (1.8-7.7) 5.0x10^3uL (1.8-7.7) Lymphocytes # (Auto) 0.2x10^3/uL (1.0-4.8) 1.1x10^3/uL (1.0-4.8) Monocytes # (Auto) 0.5x10^3/uL (0.0-1.1) 0.8x10^3/uL (0.0-1.1) Eosinophils # (Auto) 0.0x10^3/uL (0.0-0.7) 0.1x10^3/uL (0.0-0.7) Basophils # (Auto) 0.1x10^3/uL (0.0-0.2) 0.0x10^3/uL (0.0-0.2) Segmented Neutrophils % 81% (35-66) Band Neutrophils % 13% (0-9) Lymphocytes % 2% (24-48) Monocytes % 3% (0-10) Basophils % 1% (0-3) Platelet Estimate Adequate (ADEQUATE) Ovalocytes Few D-Dimer (Shanell) 0.38ug/mlFEU (0.00-0.50) Sodium Level 142mmol/L (136-145) 143mmol/L (136-145) Potassium Level 4.3mmol/L (3.5-5.1) 3.9mmol/L (3.5-5.1) Chloride Level 107mmol/L (98-107) 109mmol/L (98-107) Carbon Dioxide Level 25mmol/L (21-32) 26mmol/L (21-32) Anion Gap 10 (6-14) 8 (6-14) Blood Urea Nitrogen 8mg/dL (7-20) 7mg/dL (7-20) Creatinine 0.9mg/dL (0.6-1.0) 0.8mg/dL (0.6-1.0) Estimated GFR (Cockcroft-Gault) 89.0 101.9 Glucose Level 144mg/dL (70-99) 80mg/dL (70-99) Calcium Level 9.0mg/dL (8.5-10.1) 8.5mg/dL (8.5-10.1) Magnesium Level 1.7mg/dL (1.8-2.4) Total Bilirubin 0.8mg/dL (0.2-1.0) 0.5mg/dL (0.2-1.0) Direct Bilirubin 0.1mg/dL (0.0-0.2) 0.1mg/dL (0.0-0.2) Aspartate Amino Transf (AST/SGOT) 132U/L (15-37) 122U/L (15-37) Alanine Aminotransferase (ALT/SGPT) 67U/L (14-59) 116U/L (14-59) Alkaline Phosphatase 115U/L (46-116) 123U/L (46-116) Creatine Kinase 1673U/L (26-192) 1388U/L (26-192) Creatine Kinase MB (Mass) 0.6ng/mL (0.0-3.6) 0.5ng/mL (0.0-3.6) Creatine Kinase MB Relative Index 0.0% (0-4) 0.0% (0-4) Troponin I Quantitative < 0.017ng/mL (0.000-0.055) < 0.017ng/mL (0.000-0.055) < 0.017ng/mL (0.000-0.055) DQ-Zpx-J-Type Natriuretic Peptide 73pg/mL (0-124) Total Protein 7.3g/dL (6.4-8.2) 6.2g/dL (6.4-8.2) Albumin 3.6g/dL (3.4-5.0) 3.0g/dL (3.4-5.0) Lipase 134U/L (73-393) Thyroid Stimulating Hormone (TSH) 0.630uIU/mL (0.358-3.74) BUN/Creatinine Ratio 9 (6-20) Albumin/Globulin Ratio 0.9 (1.0-1.7) Triglycerides Level 26mg/dL (0-150) Cholesterol Level 149mg/dL (0-200) LDL Cholesterol, Calculated 83mg/dL (0-100) VLDL Cholesterol, Calculated 5mg/dL (0-40) HDL Cholesterol 61mg/dL (40-60) Cholesterol/HDL Ratio 2.4 Medications Current Medications Aspirin (Children'S Aspirin) 324 mg 1X ONCE PO Last administered on 02/27/17t 13:17; Start 02/27/17 at 13:45; Stop 02/27/17 at 13:46; Status DC Morphine Sulfate 2 mg PRN Q15MIN PRN IV/SQ PAIN GREATER THAN 3/10 Last administered on 02/27/17 15:22; Start 02/27/17 at 13:15; Stop 02/28/17 at 13:14 Multi-Ingredient Mouthwash/Gargle (Gi Cocktail Single Dose) 15 ml 1X ONCE SWSW Last administered on 02/27/17 14:40; Start 02/27/17 at 15:00; Stop 02/27/17 at 15:01; Status DC Ondansetron HCl (Zofran) 4 mg PRN Q8HRS PRN IV NAUSEA/VOMITING; Start 02/27/17 at 15:15; Stop 02/28/17 at 15:14 Fentanyl Citrate (Fentanyl 2ml Vial) 50 mcg PRN Q2HR PRN IV PAIN; Start at 15:15; Stop 02/28/17 at 15:14 Lorazepam 1 mg 1 mg 1X ONCE IV Last administered on 02/27/17 15:46; Start 02/27 at 15:45; Stop 02/27/17 at 15:46; Status DC Sodium Chloride (Iv Sodium Chloride 0.9% 1000ml Bag) 1,000 ml @ 1,000 mls/hr 1X ONCE IV Last administered on 02/27/17 16:15; Start 02/27/17 at 16:15; Stop 02/27/17 at 17:14; Status DC Aripiprazole (Abilify) 2 mg DAILY PO ; Start 02/28/17 at 09:00 Buspirone HCl (Buspar) 5 mg DAILY PO ; Start 02/28/17 at 09:00 Gabapentin (Neurontin) 100 mg TID PO ; Start 02/27/17 at 21:00; Stop 02/27/17 at 21:22; Status DC Acetaminophen (Tylenol) 650 mg PRN Q6HRS PRN PO FEVER; Start 02/27/17 at 16:45 Ondansetron HCl (Zofran) 4 mg PRN Q6HRS PRN IV NAUSEA/VOMITING; Start 02/27/17 at 16:45 Enoxaparin Sodium (Lovenox 40mg Syringe) 40 mg Q24H SQ ; Start 02/27/17 at 18:00 Guaifenesin/ Codeine Phosphate (Robitussin Ac) 5 ml PRN Q6HRS PRN PO COUGH Last administered on 4/6/17at 06:17; Start 02/27/17 at 16:45 Albuterol Sulfate (Ventolin Neb Soln) 2.5 mg PRN Q4HRS PRN NEB SHORTNESS OF BREATH; Start 02/27/17 at 17:00 Pantoprazole Sodium (Protonix) 40 mg DAILYAC PO ; Start 02/28/17 at 07:30 Budesonide (Pulmicort) 0.5 mg RTBID NEB ; Start 02/28/17 at 10:00 Albuterol/ Ipratropium (Duoneb) 3 ml RTQID NEB ; Start 02/28/17 at 10:00 Active Scripts Active Reported Abilify (Aripiprazole) 2 Mg Tablet 2 Mg PO Meloxicam 7.5 Mg Tablet 7.5 Mg PO Ranitidine Hcl 75 Mg Tablet 75 Mg PO Advair 100-50 Diskus (Fluticasone/Salmeterol) 1 Each Disk.w.dev 1 Each IH Flonase (Fluticasone Propionate) 16 Gm Peel.susp 16 Gm NS Albuterol Sulfate Hfa Inhaler (Albuterol Sulfate) 8.5 Gm Hfa.aer.ad 8.5 Gm IH Gabapentin 100 Mg Capsule 100 Mg PO Vitamin D (Cholecalciferol (Vitamin D3)) 10,000 Unit Capsule 10,000 Unit PO Multi Vitamin Daily (Multivitamin) 1 Each Tablet 1 Each PO Buspirone Hcl 5 Mg Tablet 5 Mg PO Dexilant (Dexlansoprazole) 30 Mg Say. 30 Mg PO Vitals/I & O Vital Sign - Last 24 Hours 02/27/17 02/27/17 02/27/17 02/27/17 12:17 12:30 13:00 13:17 Temp 97.7 97.7 Pulse 78 84 84 Resp 14 28 14 18 B/P 111/60 Pulse Ox 100 100 99 O2 Delivery Room Air 02/27/17 02/27/17 02/27/17 02/27/17 14:00 15:00 15:22 15:30 Pulse 90 86 92 Resp 22 29 24 20 Pulse Ox 100 100 100 98 O2 Delivery Room Air 02/27/17 02/27/17 02/27/17 02/27/17 16:00 17:00 17:00 17:44 Temp 98.8 98.8 98.8 98.8 Pulse 78 67 67 Resp 18 B/P 105/57 105/57 Pulse Ox 98 99 99 O2 Delivery Room Air Room Air Room Air 02/27/17 02/27/17 02/28/17 02/28/17 19:30 23:20 03:05 07:00 Temp 98.8 98.4 98.3 97.9 98.8 98.4 98.3 97.9 Pulse 71 65 86 78 Resp 18 16 18 B/P 105/68 111/68 108/60 99/63 Pulse Ox 99 98 98 98 O2 Delivery Room Air Room Air Room Air Room Air DOROTHY MARTIN MD Feb 28, 2017 09:36
--- NOTE | 2017-02-28 09:45 | PDOC2 ---
BENJIE MOFFETT HEEL PRICKER 02/28/17 0945: CARDIAC CONSULT DATE OF CONSULT Date of Consult DATE: 02/28/17 TIME: 09:44 REASON FOR CONSULT Reason for Consult: chest pain REFERRING PHYSICIAN Referring Physician: Dr. Juany James SOURCE Source: Chart review, Patient HISTORY OF PRESENT ILLNESS HISTORY OF PRESENT ILLNESS 31 year old female admitted through the ER with epigastric pain occurring beneath both breasts and in left shoulder and then into back. Pain was sharp and worse with inspiration. Treated with Robitussin as she has had a cough X 4 days and her niece and nephew both with URI. US of GB with possible cholelithiasis. Elevated LFT's present. Pain has improved overnight. EKG without acute changes. Troponin levels not consistent with AMI X 3. Reason for Visit: chest pain PAST MEDICAL HISTORY Pulmonary: Asthma CENTRAL NERVOUS SYSTEM: Other (psuedotumor cerebri) GI: GERD, Peptic Ulcer disease (remote) Rheumatologic: Other (Behcet's syndrome - follows [facility] @ ) Endocrine: Hypothyroidism (has not been treated with meds) PAST SURGICAL HISTORY Past Surgical History: Tonsillectomy, Other (excision of bilateral cysts from throat) FAMILY HISTORY Family History: Heart Disease (father with ? VT in his 30s), Other (mother with LBBB) SOCIAL HISTORY Smoke: No ALCOHOL: none Drugs: None CURRENT MEDICATIONS CURRENT MEDICATIONS Current Medications Medications (Trade) Dose Ordered Sig/Maggy Route PRN Reason Start Time Stop Time Status Last Admin Dose Admin Aspirin (Children'S Aspirin) 324 mg 1X ONCE PO 02/27/17 13:45 02/27/17 13:46 DC 02/27/17 13:17 Morphine Sulfate 2 mg PRN Q15MIN PRN IV/SQ PAIN GREATER THAN 3/10 02/27/17 13:15 02/28/17 13:14 02/27/17 15:22 Multi-Ingredient Mouthwash/Gargle (Gi Cocktail Single Dose) 15 ml 1X ONCE SWSW 02/27/17 15:00 02/27/17 15:01 DC 02/27/17 14:40 Lorazepam 1 mg 1 mg 1X ONCE IV 02/27/17 15:45 02/27/17 15:46 DC 02/27/17 15:46 Sodium Chloride (Iv Sodium Chloride 0.9% 1000ml Bag) 1,000 ml @ 1,000 mls/hr 1X ONCE IV 02/27/17 16:15 02/27/17 17:14 DC 02/27/17 16:15 Guaifenesin/ Codeine Phosphate (Robitussin Ac) 5 ml PRN Q6HRS PRN PO COUGH 02/27/17 16:45 02/28/17 06:17 ALLERGIES ALLERGIES: Coded Allergies: adhesive (Verified Allergy, Mild, bruising, 02/28/17) ROS General: No: Appetite, Chills, Fatigue, Malaise, Night Sweats, Other PSYCHOLOGICAL ROS: No: Anxiety, Behavioral Disorder, Concentration difficultie , Decreased libido, Depression, Disorientation, Hallucinations, Hostility, Irritablity, Memory difficulties, Mood Swings, Obsessive thoughts, Other, Physical abuse, Sexual abuse, Sleep disturbances, Suicidal ideation Eyes: No Blurry vision, No Decreased vision, No Double vision, No Dry eyes, No Excessive tearing, No Eye Pain, No Itchy Eyes, No Loss of vision, No Other, No Photophobia, No Scotomata, No Uses contacts, No Uses glasses HEENT: No: Epistaxis, Heacaches, Hearing change, Nasal congestion, Nasal discharge, Oral lesions, Other, Sinus pain, Sneezing, Snoring, Sore Throat, Tinnitus, Vertigo, Visual Changes, Vocal changes ALLERGY AND IMMUNOLOGY: No: Hives, Insect Bite Sensitivity, Itchy/Watery Eyes, Nasal Congestion, Other, Post Nasal Drip, Seasonal Allergies Hematological and Lymphatic: No: Bleeding Problems, Blood Clots, Blood Transfusions, Brusing, Night Sweats, Other, Pallor, Swollen Lymph Nodes ENDOCRINE: No: Breast Changes, Galactorrhea, Hair Pattern Changes, Hot Flashes , Malaise/lethargy, Mood Swings, Other, Palpitations, Polydipsia/polyuria, Skin Changes, Temperature Intolerance, Unexpected Weight Changes Breast: No New/Changing Breast Lumps, No Nipple changes, No Nipple discharge, No Other Respiratory: YES: Cough, No: Hemoptysis, Orthopnea, Other, Pleuritic Pain, SOB with excertion, Shortness of breath, Sputum Changes, Stridor, Tachypnea, Wheezing Cardiovascular: yes Chest Pain, No Edema, No Lt Headedness, No Orthopnea, No Other, No Palpitations, No Paroxysmal Noc. Dyspnea Gastrointestinal: Yes Abdominal Pain, No Constipation, No Diarrhea, No Hematochezia, No Melena, No Nausea, No Other , No Vomiting Genitourinary: No Discharge, No Dysuria, No Flank Pain, No Frequency, No Hematuria, No Incontinence, No Other, No Pain, No Retention, No Urgency Musculoskeletal: No Gait Disturbance, No Joint Pain, No Joint Stiffness, No Joint Swelling, No Muscle Pain, No Muscular Weakness, No Other, No Pain In:, No Swelling In: Neurological: No Behavorial Changes, No Bowel/Bladder ControlChng, No Confusion , No Dizziness, No Gait Disturbance, No Headaches, No Impaired Coord/balance, No Memory Loss, No Numbness/Tingling, No Other, No Seizures, No Speech Problems , No Tremors, No Visual Changes, No Weakness Skin: No Acne, No Dry Skin, No Eczema, No Hair Changes, No Lumps, No Mole Changes, No Mottling, No Nail Changes, No Other, No Pruritus, No Rash, No Skin Lesion Changes PHYSICAL EXAM General: Alert, Oriented X3, Cooperative, No acute distress HEENT: Atraumatic, PERRLA Lungs: Clear to auscultation, Normal air movement Heart: Regular rate, Normal S1, Normal S2, No murmurs, Other (no carotid bruits ) Abdomen: Normal bowel sounds, Soft Extremities: Normal pulses Skin: No rashes Neuro: Normal speech Psych/Mental Status: Mental status NL, Mood NL MUSCULOSKELETAL: No deformity VITALS VITALS Vital Signs Date Time Temp Pulse Resp B/P Pulse Ox O2 Delivery O2 Flow Rate FiO2 02/28/17 07:00 97.9 78 18 99/63 98 Room Air 97.9 LABS Lab: Laboratory Tests Test 02/27/17 13:10 02/27/17 18:41 02/28/17 03:25 02/28/17 03:55 White Blood Count 13.3x10^3/uL (4.0-11.0) 7.1x10^3/uL (4.0-11.0) Red Blood Count 4.24x10^6/uL (3.50-5.40) 3.71x10^6/uL (3.50-5.40) Hemoglobin 11.9g/dL (12.0-15.5) 10.5g/dL (12.0-15.5) Hematocrit 37.9% (36.0-47.0) 32.8% (36.0-47.0) Mean Corpuscular Volume 89fL (79-100) 88fL (79-100) Mean Corpuscular Hemoglobin 28pg (25-35) 28pg (25-35) Mean Corpuscular Hemoglobin Concent 32g/dL (31-37) 32g/dL (31-37) Red Cell Distribution Width 14.2% (11.5-14.5) 14.0% (11.5-14.5) Platelet Count 171x10^3/uL (140-400) 160x10^3/uL (140-400) Neutrophils (%) (Auto) 93% (31-73) 71% (31-73) Lymphocytes (%) (Auto) 2% (24-48) 16% (24-48) Monocytes (%) (Auto) 4% (0-9) 12% (0-9) Eosinophils (%) (Auto) 0% (0-3) 2% (0-3) Basophils (%) (Auto) 0% (0-3) 0% (0-3) Neutrophils # (Auto) 12.4x10^3uL (1.8-7.7) 5.0x10^3uL (1.8-7.7) Lymphocytes # (Auto) 0.2x10^3/uL (1.0-4.8) 1.1x10^3/uL (1.0-4.8) Monocytes # (Auto) 0.5x10^3/uL (0.0-1.1) 0.8x10^3/uL (0.0-1.1) Eosinophils # (Auto) 0.0x10^3/uL (0.0-0.7) 0.1x10^3/uL (0.0-0.7) Basophils # (Auto) 0.1x10^3/uL (0.0-0.2) 0.0x10^3/uL (0.0-0.2) Segmented Neutrophils % 81% (35-66) Band Neutrophils % 13% (0-9) Lymphocytes % 2% (24-48) Monocytes % 3% (0-10) Basophils % 1% (0-3) Platelet Estimate Adequate (ADEQUATE) Ovalocytes Few D-Dimer (Shanell) 0.38ug/mlFEU (0.00-0.50) Sodium Level 142mmol/L (136-145) 143mmol/L (136-145) Potassium Level 4.3mmol/L (3.5-5.1) 3.9mmol/L (3.5-5.1) Chloride Level 107mmol/L (98-107) 109mmol/L (98-107) Carbon Dioxide Level 25mmol/L (21-32) 26mmol/L (21-32) Anion Gap 10 (6-14) 8 (6-14) Blood Urea Nitrogen 8mg/dL (7-20) 7mg/dL (7-20) Creatinine 0.9mg/dL (0.6-1.0) 0.8mg/dL (0.6-1.0) Estimated GFR (Cockcroft-Gault) 89.0 101.9 Glucose Level 144mg/dL (70-99) 80mg/dL (70-99) Calcium Level 9.0mg/dL (8.5-10.1) 8.5mg/dL (8.5-10.1) Magnesium Level 1.7mg/dL (1.8-2.4) Total Bilirubin 0.8mg/dL (0.2-1.0) 0.5mg/dL (0.2-1.0) Direct Bilirubin 0.1mg/dL (0.0-0.2) 0.1mg/dL (0.0-0.2) Aspartate Amino Transf (AST/SGOT) 132U/L (15-37) 122U/L (15-37) Alanine Aminotransferase (ALT/SGPT) 67U/L (14-59) 116U/L (14-59) Alkaline Phosphatase 115U/L (46-116) 123U/L (46-116) Creatine Kinase 1673U/L (26-192) 1388U/L (26-192) Creatine Kinase MB (Mass) 0.6ng/mL (0.0-3.6) 0.5ng/mL (0.0-3.6) Creatine Kinase MB Relative Index 0.0% (0-4) 0.0% (0-4) Troponin I Quantitative < 0.017ng/mL (0.000-0.055) < 0.017ng/mL (0.000-0.055) < 0.017ng/mL (0.000-0.055) TY-Xzc-R-Type Natriuretic Peptide 73pg/mL (0-124) Total Protein 7.3g/dL (6.4-8.2) 6.2g/dL (6.4-8.2) Albumin 3.6g/dL (3.4-5.0) 3.0g/dL (3.4-5.0) Lipase 134U/L (73-393) Thyroid Stimulating Hormone (TSH) 0.630uIU/mL (0.358-3.74) BUN/Creatinine Ratio 9 (6-20) Albumin/Globulin Ratio 0.9 (1.0-1.7) Triglycerides Level 26mg/dL (0-150) Cholesterol Level 149mg/dL (0-200) LDL Cholesterol, Calculated 83mg/dL (0-100) VLDL Cholesterol, Calculated 5mg/dL (0-40) HDL Cholesterol 61mg/dL (40-60) Cholesterol/HDL Ratio 2.4 IMAGES IMAGES CXR: Comparison is made to a study from 01/30/2014. The heart size and pulmonary vascularity are normal. No pulmonary infiltrates are seen. There is no evidence of pleural fluid. IMPRESSION: No acute cardiopulmonary abnormality is detected. U/S: The gallbladder is within normal limits in size. There is a small echogenic focus in the gallbladder neck with faint posterior acoustic shadowing. This is probably a gallstone. There is a fold or partial septation in the upper portion of the gallbladder. The gallbladder ibrahim are not thickened. The patient was reportedly tender to transducer pressure over the gallbladder region. No bile duct dilatation is evident. The distal common bile duct and pancreas were obscured by overlying bowel. The visualized portions of liver and right kidney are unremarkable. IMPRESSION: Probable cholelithiasis. EKG EKG no acute changes ECHOCARDIOGRAM ECHOCARDIOGRAM pending ASSESSMENT/PLAN ASSESSMENT/PLAN 1. 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 surgery Problems: FALLON VERDUZCO MD 02/28/17 2151: CARDIAC CONSULT ALLERGIES ALLERGIES: Coded Allergies: adhesive (Verified Allergy, Mild, bruising, 02/28/17) ASSESSMENT/PLAN ASSESSMENT/PLAN Pt. seen and examined. AGree with above CHIEF ANALYTICS OFFICER note. 31 y.o woman presenting with non-cardiac pain. She has normal functional capacity. Normal echo Deemed low risk for GB surgery No further testing. Thanks for consult. Pls call with questions. Problems: BENJIE MOFFETT APRN Feb 28, 2017 09:45 FALLON VERDUZCO MD Feb 28, 2017 21:51
[2017-02-28] MEDS: ARIPIPRAZOLE 2 MG PO SCH (10:06)
[2017-02-28] MEDS: PANTOPRAZOLE 40 MG TABLET.DR. PO SCH (10:06)
--- NOTE | 2017-02-28 10:55 | PDOC2 ---
CONSULT Date of Consult Date of Consult DATE: 02/28/17 TIME: 10:46 Reason for Consult Reason for Consult: atypical chest pain and cholelithiasis Referring Physician Referring Physician: Jacob Identification/Chief Complaint Chief Complaint Epigastric pain Source Source: Patient History of Present Illness Reason for Visit: 31 yo female with 24 hour history of chest pain and upper abdominal pain. 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 Pain is more RUQ then chest today. Denies N/V. Had pain when probed with U/S for the gallbladder. Past Medical History Cardiovascular: No pertinent hx Pulmonary: No pertinent hx GI: Peptic Ulcer disease (Beehcet's disease, Elevate LFT's), Other Heme/Onc: No pertinent hx Hepatobiliary: No pertinent hx Psych: No pertinent hx Rheumatologic: No pertinent hx Infectious disease: No pertinent hx ENT: No pertinent hx Renal/: No pertinent hx Endocrine: No pertinent hx Dermatology: No pertinent hx Past Surgical History Past Surgical History: No pertinent history Family History Family History: Coronary Artery Disease Social History No ALCOHOL: none Drugs: None Current Problem List Problem List Problems Medical Problems: (1) Abdominal pain Status: Acute Current Medications Current Medications Current Medications Aspirin (Children'S Aspirin) 324 mg 1X ONCE PO Last administered on 02/27/17 13:17; Start 02/27/17 at 13:45; Stop 02/27/17 at 13:46; Status DC Morphine Sulfate 2 mg PRN Q15MIN PRN IV/SQ PAIN GREATER THAN 3/10 Last administered on 02/27/17 15:22; Start 02/27/17 at 13:15; Stop 02/28/17 at 13:14 Multi-Ingredient Mouthwash/Gargle (Gi Cocktail Single Dose) 15 ml 1X ONCE SWSW Last administered on 02/27/17 14:40; Start 02/27/17 at 15:00; Stop 02/27/17 at 15:01; Status DC Ondansetron HCl (Zofran) 4 mg PRN Q8HRS PRN IV NAUSEA/VOMITING; Start 02/27/17 at 15:15; Stop 02/28/17 at 15:14 Fentanyl Citrate (Fentanyl 2ml Vial) 50 mcg PRN Q2HR PRN IV PAIN; Start at 15:15; Stop 02/28/17 at 15:14 Lorazepam 1 mg 1 mg 1X ONCE IV Last administered on 02/27/17 15:46; Start 02/27 at 15:45; Stop 02/27/17 at 15:46; Status DC Sodium Chloride (Iv Sodium Chloride 0.9% 1000ml Bag) 1,000 ml @ 1,000 mls/hr 1X ONCE IV Last administered on 02/27/17 16:15; Start 02/27/17 at 16:15; Stop 02/27/17 at 17:14; Status DC Aripiprazole (Abilify) 2 mg DAILY PO Last administered on 02/28/17 10:06; Start 02/28/17 at 09:00 Buspirone HCl (Buspar) 5 mg DAILY PO ; Start 02/28/17 at 09:00 Gabapentin (Neurontin) 100 mg TID PO ; Start 02/27/17 at 21:00; Stop 02/27/17 at 21:22; Status DC Acetaminophen (Tylenol) 650 mg PRN Q6HRS PRN PO FEVER Last administered on 10:06; Start 02/27/17 at 16:45 Ondansetron HCl (Zofran) 4 mg PRN Q6HRS PRN IV NAUSEA/VOMITING; Start 02/27/17 at 16:45 Enoxaparin Sodium (Lovenox 40mg Syringe) 40 mg Q24H SQ ; Start 02/27/17 at 18:00 Guaifenesin/ Codeine Phosphate (Robitussin Ac) 5 ml PRN Q6HRS PRN PO COUGH Last administered on 02/28/17 06:17; Start 02/27/17 at 16:45 Albuterol Sulfate (Ventolin Neb Soln) 2.5 mg PRN Q4HRS PRN NEB SHORTNESS OF BREATH; Start 02/27/17 at 17:00 Pantoprazole Sodium (Protonix) 40 mg DAILYAC PO Last administered on 02/28/17 10:06; Start 02/28/17 at 07:30 Budesonide (Pulmicort) 0.5 mg RTBID NEB ; Start 02/28/17 at 10:00 Albuterol/ Ipratropium (Duoneb) 3 ml RTQID NEB ; Start 02/28/17 at 10:00 Active Scripts Active Reported Abilify (Aripiprazole) 2 Mg Tablet 2 Mg PO Meloxicam 7.5 Mg Tablet 7.5 Mg PO Ranitidine Hcl 75 Mg Tablet 75 Mg PO Advair 100-50 Diskus (Fluticasone/Salmeterol) 1 Each Disk.w.dev 1 Each IH Flonase (Fluticasone Propionate) 16 Gm [place].susp 16 Gm NS Albuterol Sulfate Hfa Inhaler (Albuterol Sulfate) 8.5 Gm Hfa.aer.ad 8.5 Gm IH Gabapentin 100 Mg Capsule 100 Mg PO Vitamin D (Cholecalciferol (Vitamin D3)) 10,000 Unit Capsule 10,000 Unit PO Multi Vitamin Daily (Multivitamin) 1 Each Tablet 1 Each PO Buspirone Hcl 5 Mg Tablet 5 Mg PO Dexilant (Dexlansoprazole) 30 Mg Say.mp 30 Mg PO Allergies Allergies: Coded Allergies: Penicillins (Verified Allergy, Intermediate, Itching, 03/31/14) adhesive (Verified Allergy, Mild, bruising, 02/28/17) ROS Gastrointestinal: Yes Abdominal Pain Physical Exam General: Alert, Oriented X3, Cooperative, mild distress HEENT: Atraumatic, PERRLA, EOMI Lungs: Clear to auscultation, Normal air movement Heart: Regular rate, No murmurs Abdomen: Normal bowel sounds, Soft, Other (TTP ) Extremities: No clubbing, No cyanosis, No edema Skin: No significant lesion Neuro: Normal speech Vitals VITALS Vital Signs Date Time Temp Pulse Resp B/P Pulse Ox O2 Delivery O2 Flow Rate FiO2 02/28/17 10:30 95.9 83 18 112/75 97 Room Air 95.9 Labs Labs Laboratory Tests Test 02/27/17 13:10 02/27/17 18:41 02/28/17 03:25 02/28/17 03:55 White Blood Count 13.3x10^3/uL (4.0-11.0) 7.1x10^3/uL (4.0-11.0) Red Blood Count 4.24x10^6/uL (3.50-5.40) 3.71x10^6/uL (3.50-5.40) Hemoglobin 11.9g/dL (12.0-15.5) 10.5g/dL (12.0-15.5) Hematocrit 37.9% (36.0-47.0) 32.8% (36.0-47.0) Mean Corpuscular Volume 89fL (79-100) 88fL (79-100) Mean Corpuscular Hemoglobin 28pg (25-35) 28pg (25-35) Mean Corpuscular Hemoglobin Concent 32g/dL (31-37) 32g/dL (31-37) Red Cell Distribution Width 14.2% (11.5-14.5) 14.0% (11.5-14.5) Platelet Count 171x10^3/uL (140-400) 160x10^3/uL (140-400) Neutrophils (%) (Auto) 93% (31-73) 71% (31-73) Lymphocytes (%) (Auto) 2% (24-48) 16% (24-48) Monocytes (%) (Auto) 4% (0-9) 12% (0-9) Eosinophils (%) (Auto) 0% (0-3) 2% (0-3) Basophils (%) (Auto) 0% (0-3) 0% (0-3) Neutrophils # (Auto) 12.4x10^3uL (1.8-7.7) 5.0x10^3uL (1.8-7.7) Lymphocytes # (Auto) 0.2x10^3/uL (1.0-4.8) 1.1x10^3/uL (1.0-4.8) Monocytes # (Auto) 0.5x10^3/uL (0.0-1.1) 0.8x10^3/uL (0.0-1.1) Eosinophils # (Auto) 0.0x10^3/uL (0.0-0.7) 0.1x10^3/uL (0.0-0.7) Basophils # (Auto) 0.1x10^3/uL (0.0-0.2) 0.0x10^3/uL (0.0-0.2) Segmented Neutrophils % 81% (35-66) Band Neutrophils % 13% (0-9) Lymphocytes % 2% (24-48) Monocytes % 3% (0-10) Basophils % 1% (0-3) Platelet Estimate Adequate (ADEQUATE) Ovalocytes Few D-Dimer (Shanell) 0.38ug/mlFEU (0.00-0.50) Sodium Level 142mmol/L (136-145) 143mmol/L (136-145) Potassium Level 4.3mmol/L (3.5-5.1) 3.9mmol/L (3.5-5.1) Chloride Level 107mmol/L (98-107) 109mmol/L (98-107) Carbon Dioxide Level 25mmol/L (21-32) 26mmol/L (21-32) Anion Gap 10 (6-14) 8 (6-14) Blood Urea Nitrogen 8mg/dL (7-20) 7mg/dL (7-20) Creatinine 0.9mg/dL (0.6-1.0) 0.8mg/dL (0.6-1.0) Estimated GFR (Cockcroft-Gault) 89.0 101.9 Glucose Level 144mg/dL (70-99) 80mg/dL (70-99) Calcium Level 9.0mg/dL (8.5-10.1) 8.5mg/dL (8.5-10.1) Magnesium Level 1.7mg/dL (1.8-2.4) Total Bilirubin 0.8mg/dL (0.2-1.0) 0.5mg/dL (0.2-1.0) Direct Bilirubin 0.1mg/dL (0.0-0.2) 0.1mg/dL (0.0-0.2) Aspartate Amino Transf (AST/SGOT) 132U/L (15-37) 122U/L (15-37) Alanine Aminotransferase (ALT/SGPT) 67U/L (14-59) 116U/L (14-59) Alkaline Phosphatase 115U/L (46-116) 123U/L (46-116) Creatine Kinase 1673U/L (26-192) 1388U/L (26-192) Creatine Kinase MB (Mass) 0.6ng/mL (0.0-3.6) 0.5ng/mL (0.0-3.6) Creatine Kinase MB Relative Index 0.0% (0-4) 0.0% (0-4) Troponin I Quantitative < 0.017ng/mL (0.000-0.055) < 0.017ng/mL (0.000-0.055) < 0.017ng/mL (0.000-0.055) KR-Ouv-Y-Type Natriuretic Peptide 73pg/mL (0-124) Total Protein 7.3g/dL (6.4-8.2) 6.2g/dL (6.4-8.2) Albumin 3.6g/dL (3.4-5.0) 3.0g/dL (3.4-5.0) Lipase 134U/L (73-393) Thyroid Stimulating Hormone (TSH) 0.630uIU/mL (0.358-3.74) BUN/Creatinine Ratio 9 (6-20) Albumin/Globulin Ratio 0.9 (1.0-1.7) Triglycerides Level 26mg/dL (0-150) Cholesterol Level 149mg/dL (0-200) LDL Cholesterol, Calculated 83mg/dL (0-100) VLDL Cholesterol, Calculated 5mg/dL (0-40) HDL Cholesterol 61mg/dL (40-60) Cholesterol/HDL Ratio 2.4 Laboratory Tests Test 02/27/17 13:10 02/27/17 18:41 02/28/17 03:25 02/28/17 03:55 White Blood Count 13.3x10^3/uL (4.0-11.0) 7.1x10^3/uL (4.0-11.0) Red Blood Count 4.24x10^6/uL (3.50-5.40) 3.71x10^6/uL (3.50-5.40) Hemoglobin 11.9g/dL (12.0-15.5) 10.5g/dL (12.0-15.5) Hematocrit 37.9% (36.0-47.0) 32.8% (36.0-47.0) Mean Corpuscular Volume 89fL (79-100) 88fL (79-100) Mean Corpuscular Hemoglobin 28pg (25-35) 28pg (25-35) Mean Corpuscular Hemoglobin Concent 32g/dL (31-37) 32g/dL (31-37) Red Cell Distribution Width 14.2% (11.5-14.5) 14.0% (11.5-14.5) Platelet Count 171x10^3/uL (140-400) 160x10^3/uL (140-400) Neutrophils (%) (Auto) 93% (31-73) 71% (31-73) Lymphocytes (%) (Auto) 2% (24-48) 16% (24-48) Monocytes (%) (Auto) 4% (0-9) 12% (0-9) Eosinophils (%) (Auto) 0% (0-3) 2% (0-3) Basophils (%) (Auto) 0% (0-3) 0% (0-3) Neutrophils # (Auto) 12.4x10^3uL (1.8-7.7) 5.0x10^3uL (1.8-7.7) Lymphocytes # (Auto) 0.2x10^3/uL (1.0-4.8) 1.1x10^3/uL (1.0-4.8) Monocytes # (Auto) 0.5x10^3/uL (0.0-1.1) 0.8x10^3/uL (0.0-1.1) Eosinophils # (Auto) 0.0x10^3/uL (0.0-0.7) 0.1x10^3/uL (0.0-0.7) Basophils # (Auto) 0.1x10^3/uL (0.0-0.2) 0.0x10^3/uL (0.0-0.2) Segmented Neutrophils % 81% (35-66) Band Neutrophils % 13% (0-9) Lymphocytes % 2% (24-48) Monocytes % 3% (0-10) Basophils % 1% (0-3) Platelet Estimate Adequate (ADEQUATE) Ovalocytes Few D-Dimer (Shanell) 0.38ug/mlFEU (0.00-0.50) Sodium Level 142mmol/L (136-145) 143mmol/L (136-145) Potassium Level 4.3mmol/L (3.5-5.1) 3.9mmol/L (3.5-5.1) Chloride Level 107mmol/L (98-107) 109mmol/L (98-107) Carbon Dioxide Level 25mmol/L (21-32) 26mmol/L (21-32) Anion Gap 10 (6-14) 8 (6-14) Blood Urea Nitrogen 8mg/dL (7-20) 7mg/dL (7-20) Creatinine 0.9mg/dL (0.6-1.0) 0.8mg/dL (0.6-1.0) Estimated GFR (Cockcroft-Gault) 89.0 101.9 Glucose Level 144mg/dL (70-99) 80mg/dL (70-99) Calcium Level 9.0mg/dL (8.5-10.1) 8.5mg/dL (8.5-10.1) Magnesium Level 1.7mg/dL (1.8-2.4) Total Bilirubin 0.8mg/dL (0.2-1.0) 0.5mg/dL (0.2-1.0) Direct Bilirubin 0.1mg/dL (0.0-0.2) 0.1mg/dL (0.0-0.2) Aspartate Amino Transf (AST/SGOT) 132U/L (15-37) 122U/L (15-37) Alanine Aminotransferase (ALT/SGPT) 67U/L (14-59) 116U/L (14-59) Alkaline Phosphatase 115U/L (46-116) 123U/L (46-116) Creatine Kinase 1673U/L (26-192) 1388U/L (26-192) Creatine Kinase MB (Mass) 0.6ng/mL (0.0-3.6) 0.5ng/mL (0.0-3.6) Creatine Kinase MB Relative Index 0.0% (0-4) 0.0% (0-4) Troponin I Quantitative < 0.017ng/mL (0.000-0.055) < 0.017ng/mL (0.000-0.055) < 0.017ng/mL (0.000-0.055) HX-Net-U-Type Natriuretic Peptide 73pg/mL (0-124) Total Protein 7.3g/dL (6.4-8.2) 6.2g/dL (6.4-8.2) Albumin 3.6g/dL (3.4-5.0) 3.0g/dL (3.4-5.0) Lipase 134U/L (73-393) Thyroid Stimulating Hormone (TSH) 0.630uIU/mL (0.358-3.74) BUN/Creatinine Ratio 9 (6-20) Albumin/Globulin Ratio 0.9 (1.0-1.7) Triglycerides Level 26mg/dL (0-150) Cholesterol Level 149mg/dL (0-200) LDL Cholesterol, Calculated 83mg/dL (0-100) VLDL Cholesterol, Calculated 5mg/dL (0-40) HDL Cholesterol 61mg/dL (40-60) Cholesterol/HDL Ratio 2.4 Images Images U/S showing gallstones with Childs's sign Assessment/Plan Assessment/Plan Symptomatic cholelithiasis Plan L/S Cholecystectomy BRENNEN CASTELLANO MD Feb 28, 2017 10:55
[2017-02-28] MEDS: IPRATRPIUM/ALBUTEROL 0.5/2.5MG 3 ML NEBU. NEB SCH ×3 (11:11→20:38)
[2017-02-28] MEDS: BUDESONIDE 0.5 MG/2 ML NEBU. NEB SCH ×2 (11:12→20:38)
--- NOTE | 2017-02-28 11:20 | CARD ---
APPROVED REPORT EXAM: Two-dimensional and M-mode echocardiogram with Doppler and color Doppler. Other Information Quality : Average Rhythm : NSR INDICATION Chest Pain 2D DIMENSIONS RVDd2.5 (2.9-3.5cm)Left Atrium(2D)4.0 (1.6-4.0cm) IVSd1.0 (0.7-1.1cm)Aortic Root(2D)2.0 (2.0-3.7cm) LVDd4.2 (3.9-5.9cm)LVOT Diameter2.0 (1.8-2.4cm) PWd1.0 (0.7-1.1cm)LVDs2.5 (2.5-4.0cm) FS (%) 29.4 %SV55.3 ml LVEF(%)60.3 (>50%) Aortic Valve AoV Peak Chandan.150.7cm/sAoV VTI31.5cm AO Peak GR.9.1mmHgLVOT Peak Chandan.123.1cm/s AO Mean GR.5mmHgAVA (VMAX)2.57cm2 JAZMYNE (VTI)2.80cm2 Mitral Valve MV E Mkfvvmbd950.2cm/sMV DECEL [id number] MV A Qjiqngke99.4cm/sMV AFF28bf E/A Ratio2.0MV A Sjrvtwhj425ym MVA (PHT)5.53cm2 Tricuspid Valve TR P. Plbxmesi079vl/sRAP FROEUSMU2kpBb TR Peak Gr.63axWrLNWK64fuZm Pulmonary Vein S1 Wcvaokgp34.0cm/sD2 Dsvxqdeg83.4cm/s PVa [id number] LEFT VENTRICLE The left ventricle is normal size. There is normal left ventricular wall thickness. Left ventricle sy stolic function is normal. The Ejection Fraction is 50-55%. There is normal LV segmental wall motion. The left ventricular diastolic function and filling is normal for age. RIGHT VENTRICLE The right ventricle is normal size. The right ventricular systolic function is normal. ATRIA The left atrium size is normal. The right atrium size is normal. The interatrial septum is intact wit h no evidence for an atrial septal defect or patent foramen ovale as noted on 2-D or Doppler imaging. AORTIC VALVE The aortic valve is normal in structure and function. The aortic valve is trileaflet. Doppler and Col or Flow revealed no significant aortic regurgitation. There is no significant aortic valvular stenosi s. MITRAL VALVE The mitral valve leaflets are thickened. There is no mitral valve stenosis. Doppler and Color Flow re vealed mild mitral regurgitation. TRICUSPID VALVE The tricuspid valve is normal in structure and function. Doppler and Color Flow revealed trace to mil d tricuspid regurgitation. The PA pressure was estimated at 29 mmHg. There is no tricuspid valve sten osis. PULMONIC VALVE The pulmonic valve is not well visualized. Doppler and Color Flow revealed no pulmonic valvular regur gitation. There is no pulmonic valvular stenosis. GREAT VESSELS The aortic root is normal in size. Normal pulmonary venous flow (Doppler). The IVC is normal in size and collapses >50% with inspiration. PERICARDIAL EFFUSION There is no evidence of significant pericardial effusion. Critical Notification Critical Value: No <Conclusion> The left ventricle is normal size. Left ventricle systolic function is normal. The Ejection Fraction is 50-55%. There is no significant aortic valvular stenosis. Doppler and Color Flow revealed no significant aortic regurgitation. Doppler and Color Flow revealed mild mitral regurgitation. Doppler and Color Flow revealed trace to mild tricuspid regurgitation. The PA pressure was estimated at 29 mmHg.
[2017-02-28] MEDS ORDERED: PROPOFOL 20 ML IV ONE (11:26)
[2017-02-28] MEDS ORDERED: LIDOCAINE 2% 100 MG/5 ML SYRINGE. ONE (11:26)
[2017-02-28] MEDS ORDERED: ROCURONIUM 50 MG/5 ML VIAL. ONE (11:28)
[2017-02-28] MEDS ORDERED: FENTANYL PF 250 MCG/5 ML VIAL. ONE (11:28)
[2017-02-28] MEDS ORDERED: ONDANSETRON PF 4 MG/2 ML VIAL. ONE (11:31)
[2017-02-28] MEDS ORDERED: DEXAMETHASONE SOD PHOS 20 MG/5 ML VIAL. ONE (11:31)
[2017-02-28] MEDS ORDERED: SURGICEL HEMOSTAT 4X8 EACH. ONE (11:57)
[2017-02-28] MEDS ORDERED: BUPIVACAINE-EPI 0.25%-1:200000 50 ML VIAL. ONE (11:57)
[2017-02-28] MEDS ORDERED: IOHEXOL 300 MG/ML 50 ML VIAL. ONE (11:57)
[2017-02-28] MEDS ORDERED: CEFAZOLIN 2GM PREMIX 50 ML IV ONE ×2 (12:03→12:15)
[2017-02-28 12:13] LABS: BILIRUBIN,URINE NEGATIVE (NEG); GLUCOSE,URINE NEGATIVE (NEG); NITRITE,URINE NEGATIVE (NEG); PROTEIN,URINE NEGATIVE (NEG-TRACE); UROBILINOGEN,URINE 0.2 mg/dL (0.2 mg/dL)
[2017-02-28] MEDS ORDERED: CEFAZOLIN 1GM IVPB FOR OMNI. IM ONE (12:15)
[2017-02-28 12:24] LABS: BACTERIA,URINE FEW /HPF (0-FEW); RBC,URINE OCC /HPF (0-2); SQUAMOUS EPITHELIAL CELL,UR MOD /LPF
[2017-02-28 12:33] LABS: NEG OBC UR NEG; POS OBC UR POS
[2017-02-28] MEDS ORDERED: GLYCOPYRROLATE 1 MG/5 ML VIAL. ONE (12:43)
[2017-02-28] MEDS ORDERED: NEOSTIGMINE METHYLSULFATE 5 MG/5 ML SYRINGE. ONE (12:43)
--- NOTE | 2017-02-28 12:50 | PDOC ---
BRIEF OPERATIVE NOTE Date: Feb 28, 2017 Pre-Op Diagnosis Symptomatic cholelithiasis Post-Op Diagnosis Same Procedure Performed L/S Cholecystectomy Surgeon Boogie Anesthesia Type: General Blood Loss 10ml Specimens Obtained Gallbladder Findings as above Complications None BRENNEN CASTELLANO MD Feb 28, 2017 12:50
[2017-02-28] MEDS ORDERED: OXYCODONE/APAP 5/325 TABLET. PO PRN (13:00)
--- NOTE | 2017-02-28 15:37 | OP ---
DATE OF SURGERY: 02/28/2017 PREOPERATIVE DIAGNOSIS: Symptomatic cholelithiasis. POSTOPERATIVE DIAGNOSIS: Symptomatic cholelithiasis. PROCEDURE: Laparoscopic cholecystectomy. SURGEON: Luis Castellano MD. INDICATIONS: The patient is a 31-year-old female who was admitted to the hospital with atypical chest pain and right upper quadrant abdominal pain. Her cardiac workup was negative. Ultrasound of the right upper quadrant showed gallbladder with stones. Procedure of laparoscopic cholecystectomy was explained to the patient in detail. Risks and benefits were also discussed including bleeding, infection, injury to intra-abdominal contents, and possibly sustaining further open operations. Alternatives of this procedure were also discussed with the patient who seemed to understand and gave verbal and written consent to have the procedure performed. DESCRIPTION OF PROCEDURE: The patient was taken to the operating room and placed in the supine position. General anesthesia was initiated. Once the patient was asleep and intubated, her abdomen was prepped and draped in the usual sterile fashion using ChloraPrep. An area just below the umbilicus was injected with 0.25% Marcaine with epinephrine. Incision was made with an 11-blade scalpel, and a Veress needle was placed within the abdomen. Pneumoperitoneum was achieved. Once this was complete, an 11-mm port was placed, and a 5-mm camera was placed within the abdomen. Abdomen was inspected. No other abnormalities were noted. At this point, three 5-mm ports were then placed under direct visualization, one in the epigastrium, 2 in the right upper quadrant. The dome of the gallbladder was grasped and retracted cephalad. Infundibulum of the gallbladder was grasped and retracted laterally exposing the triangle of Calot. Adherent tissues of the triangle were taken down exposing the cystic duct and cystic artery. Both were doubly clipped and transected. The gallbladder was taken off the liver with hook electrocautery, placed in EndoCatch bag, and removed from the umbilicus. Right upper quadrant was irrigated and suctioned dry. Hemostasis seemed to be appropriate. The pneumoperitoneum was reduced. All ports were removed. Fascial defect at the umbilicus was closed with [id number] 0 Vicryl suture. Skin was reapproximated in all port sites with 4-0 subcuticular Monocryl. Mastisol, Steri-Strips, and Band-Aids were applied as dressings. The patient was awakened, extubated in the operating room, taken to recovery in stable condition. All sponge, instrument counts were listed as correct. Estimated blood loss 10 mL. LUIS CASTELLANO MD DR: ANDREWS/betty JOB#: [id number] / [id number]
[2017-02-28] MEDS: OXYCODONE/APAP 5/325 TABLET. PO PRN ×2 (16:04→21:35)
[2017-02-28 16:22] LABS: HEP A IGM ABDY Negative (Negative)
[2017-02-28] MEDS: ENOXAPARIN 40 MG/0.4 ML SYRINGE. SQ SCH (17:11)
[2017-03-01] MEDS ORDERED: TRAMADOL 50 MG TABLET. PO PRN (01:00)
[2017-03-01] MEDS: KETOROLAC TROMETHAMINE 30 MG/ML INJ. IV PRN ×2 (01:21→10:31)
[2017-03-01 03:28] VITALS: BP 102/62
[2017-03-01 07:00] VITALS: BP 113/72
[2017-03-01] MEDS: busPIRone 5 MG TABLET. PO SCH (07:18)
[2017-03-01] MEDS: IPRATRPIUM/ALBUTEROL 0.5/2.5MG 3 ML NEBU. NEB SCH ×2 (07:31→11:22)
[2017-03-01] MEDS: BUDESONIDE 0.5 MG/2 ML NEBU. NEB SCH (07:31)
--- NOTE | 2017-03-01 07:49 | PDOC ---
SURGICAL PROGRESS NOTE Subjective Doing well, tolerating diet. Vital Signs Vital Signs Date Time Temp Pulse Resp B/P Pulse Ox O2 Delivery O2 Flow Rate FiO2 03/01/17 07:31 98 Room Air 03/01/17 07:00 97.9 91 18 113/72 97.9 02/28/17 13:31 6 I&O Intake and Output 03/01/17 06:59 Intake Total 590 ml Output Total 10 ml Balance 580 ml Intake Oral 540 ml IV Total 50 ml Output Estimated Blood Loss 10 ml # Voids 5 PATIENT HAS A [place]OUGH[place]: No General: Alert, Oriented X3, Cooperative, No acute distress Abdomen: Normal bowel sounds, Soft, No tenderness Labs Laboratory Tests Test 02/27/17 13:10 02/27/17 18:41 02/28/17 03:25 02/28/17 03:55 White Blood Count 13.3x10^3/uL (4.0-11.0) 7.1x10^3/uL (4.0-11.0) Red Blood Count 4.24x10^6/uL (3.50-5.40) 3.71x10^6/uL (3.50-5.40) Hemoglobin 11.9g/dL (12.0-15.5) 10.5g/dL (12.0-15.5) Hematocrit 37.9% (36.0-47.0) 32.8% (36.0-47.0) Mean Corpuscular Volume 89fL (79-100) 88fL (79-100) Mean Corpuscular Hemoglobin 28pg (25-35) 28pg (25-35) Mean Corpuscular Hemoglobin Concent 32g/dL (31-37) 32g/dL (31-37) Red Cell Distribution Width 14.2% (11.5-14.5) 14.0% (11.5-14.5) Platelet Count 171x10^3/uL (140-400) 160x10^3/uL (140-400) Neutrophils (%) (Auto) 93% (31-73) 71% (31-73) Lymphocytes (%) (Auto) 2% (24-48) 16% (24-48) Monocytes (%) (Auto) 4% (0-9) 12% (0-9) Eosinophils (%) (Auto) 0% (0-3) 2% (0-3) Basophils (%) (Auto) 0% (0-3) 0% (0-3) Neutrophils # (Auto) 12.4x10^3uL (1.8-7.7) 5.0x10^3uL (1.8-7.7) Lymphocytes # (Auto) 0.2x10^3/uL (1.0-4.8) 1.1x10^3/uL (1.0-4.8) Monocytes # (Auto) 0.5x10^3/uL (0.0-1.1) 0.8x10^3/uL (0.0-1.1) Eosinophils # (Auto) 0.0x10^3/uL (0.0-0.7) 0.1x10^3/uL (0.0-0.7) Basophils # (Auto) 0.1x10^3/uL (0.0-0.2) 0.0x10^3/uL (0.0-0.2) Segmented Neutrophils % 81% (35-66) Band Neutrophils % 13% (0-9) Lymphocytes % 2% (24-48) Monocytes % 3% (0-10) Basophils % 1% (0-3) Platelet Estimate Adequate (ADEQUATE) Ovalocytes Few D-Dimer (Shanell) 0.38ug/mlFEU (0.00-0.50) Sodium Level 142mmol/L (136-145) 143mmol/L (136-145) Potassium Level 4.3mmol/L (3.5-5.1) 3.9mmol/L (3.5-5.1) Chloride Level 107mmol/L (98-107) 109mmol/L (98-107) Carbon Dioxide Level 25mmol/L (21-32) 26mmol/L (21-32) Anion Gap 10 (6-14) 8 (6-14) Blood Urea Nitrogen 8mg/dL (7-20) 7mg/dL (7-20) Creatinine 0.9mg/dL (0.6-1.0) 0.8mg/dL (0.6-1.0) Estimated GFR (Cockcroft-Gault) 89.0 101.9 Glucose Level 144mg/dL (70-99) 80mg/dL (70-99) Calcium Level 9.0mg/dL (8.5-10.1) 8.5mg/dL (8.5-10.1) Magnesium Level 1.7mg/dL (1.8-2.4) Total Bilirubin 0.8mg/dL (0.2-1.0) 0.5mg/dL (0.2-1.0) Direct Bilirubin 0.1mg/dL (0.0-0.2) 0.1mg/dL (0.0-0.2) Aspartate Amino Transf (AST/SGOT) 132U/L (15-37) 122U/L (15-37) Alanine Aminotransferase (ALT/SGPT) 67U/L (14-59) 116U/L (14-59) Alkaline Phosphatase 115U/L (46-116) 123U/L (46-116) Creatine Kinase 1673U/L (26-192) 1388U/L (26-192) Creatine Kinase MB (Mass) 0.6ng/mL (0.0-3.6) 0.5ng/mL (0.0-3.6) Creatine Kinase MB Relative Index 0.0% (0-4) 0.0% (0-4) Troponin I Quantitative < 0.017ng/mL (0.000-0.055) < 0.017ng/mL (0.000-0.055) < 0.017ng/mL (0.000-0.055) ZQ-Sii-O-Type Natriuretic Peptide 73pg/mL (0-124) Total Protein 7.3g/dL (6.4-8.2) 6.2g/dL (6.4-8.2) Albumin 3.6g/dL (3.4-5.0) 3.0g/dL (3.4-5.0) Lipase 134U/L (73-393) Thyroid Stimulating Hormone (TSH) 0.630uIU/mL (0.358-3.74) BUN/Creatinine Ratio 9 (6-20) Albumin/Globulin Ratio 0.9 (1.0-1.7) Triglycerides Level 26mg/dL (0-150) Cholesterol Level 149mg/dL (0-200) LDL Cholesterol, Calculated 83mg/dL (0-100) VLDL Cholesterol, Calculated 5mg/dL (0-40) HDL Cholesterol 61mg/dL (40-60) Cholesterol/HDL Ratio 2.4 Hepatitis A IgM Antibody Negative (Negative) Hepatitis B Surface Antigen Negative (Negative) Hepatitis B Core IgM Antibody Negative (Negative) Hepatitis C Antibody <0.1s/co ratio (0.0-0.9) Test 02/28/17 11:57 Urine Collection Type Unknown Urine Color Yellow Urine Clarity Clear Urine pH 6.0 Urine Specific [place] 1.010 Urine Protein Negativemg/dL (NEG-TRACE) Urine Glucose (UA) Negativemg/dL (NEG) Urine Ketones (Stick) Negativemg/dL (NEG) Urine Blood Negative (NEG) Urine Nitrite Negative (NEG) Urine Bilirubin Negative (NEG) Urine Urobilinogen Dipstick 0.2mg/dL (0.2 mg/dL) Urine Leukocyte Esterase Negative (NEG) Urine RBC Occ/HPF (0-2) Urine WBC 1-4/HPF (0-4) Urine Squamous Epithelial Cells Mod/LPF Urine Transitional Epithelial Cells Occ/LPF Urine Bacteria Few/HPF (0-FEW) Urine Test Negative (NEG) Laboratory Tests Test 02/28/17 11:57 Urine Collection Type Unknown Urine Color Yellow Urine Clarity Clear Urine pH 6.0 Urine Specific [place] 1.010 Urine Protein Negativemg/dL (NEG-TRACE) Urine Glucose (UA) Negativemg/dL (NEG) Urine Ketones (Stick) Negativemg/dL (NEG) Urine Blood Negative (NEG) Urine Nitrite Negative (NEG) Urine Bilirubin Negative (NEG) Urine Urobilinogen Dipstick 0.2mg/dL (0.2 mg/dL) Urine Leukocyte Esterase Negative (NEG) Urine RBC Occ/HPF (0-2) Urine WBC 1-4/HPF (0-4) Urine Squamous Epithelial Cells Mod/LPF Urine Transitional Epithelial Cells Occ/LPF Urine Bacteria Few/HPF (0-FEW) Urine Test Negative (NEG) Problem List Problems Medical Problems: (1) Abdominal pain Status: Acute Assessment/Plan S/P L/S cholecystectomy, doing well OK to D/C home from surgical point of view Problems: BRENNEN CASTELLANO MD Mar 01, 2017 07:49
[2017-03-01] MEDS ORDERED: TRAM50TA PO (09:07)
[2017-03-01] MEDS ORDERED: DOCU-27 PO (09:07)
[2017-03-01] MEDS ORDERED: IBUP-1060 PO (09:07)
[2017-03-01] MEDS: OXYCODONE/APAP 5/325 TABLET. PO PRN (09:37)
[2017-03-01] MEDS: GUAIFENESIN/CODEINE 100mg/10mg 5 ML LIQUID. PO PRN (09:37)
[2017-03-01] MEDS: ARIPIPRAZOLE 2 MG PO SCH (09:37)
[2017-03-01] MEDS: PANTOPRAZOLE 40 MG TABLET.DR. PO SCH (09:38)
[2017-03-01] MEDS ORDERED: POLYETHYLENE GLYCOL 3350 17 GM PACKET. PO ONE (10:00)
[2017-03-01] MEDS ORDERED: DOCUSATE SODIUM 100 MG CAPSULE. PO SCH (10:00)
[2017-03-01 11:00] VITALS: BP 118/70
--- NOTE | 2017-03-01 11:30 | PDOC ---
Subjective: Subjective: Feeling better w/ just minimal abd pain. Tolerating PO, passing gas, no BM. Feels ready to DC. Objective: Vital Signs: Vital Signs Date Time Temp Pulse Resp B/P Pulse Ox O2 Delivery O2 Flow Rate FiO2 03/01/17 11:23 98 Room Air 03/01/17 11:00 98.4 87 18 118/70 98.4 02/28/17 13:31 6 Labs: Laboratory Tests Test 02/28/17 11:57 Urine Collection Type Unknown Urine Color Yellow Urine Clarity Clear Urine pH 6.0 Urine Specific [place] 1.010 Urine Protein Negativemg/dL Urine Glucose (UA) Negativemg/dL Urine Ketones (Stick) Negativemg/dL Urine Blood Negative Urine Nitrite Negative Urine Bilirubin Negative Urine Urobilinogen Dipstick 0.2mg/dL Urine Leukocyte Esterase Negative Urine RBC Occ/HPF Urine WBC 1-4/HPF Urine Squamous Epithelial Cells Mod/LPF Urine Transitional Epithelial Cells Occ/LPF Urine Bacteria Few/HPF Urine Test Negative PE: GEN: NAD LUNGS: CTAB HEART: RRR ABD: mild incisional tenderness, soft NEURO/PSYCH: A & O 3 A/P: Chest/shoulder pain - resolved Elevated LFTs -Hepatitis panel neg -GARRETT, AMA, ASMA pending S/p cholecystectomy 02/28/17 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 Follow-up w/ for labs results, monitor LFTs (?Imuran) as outpt. [facility] Mar 01, 2017 11:30
[2017-03-03 12:08] LABS: MITOCHONDRIAL ABDY 6.5 Units (0.0-20.0); SMOOTH MUSCLE AB 14 Units (0-19)
--- NOTE | 2017-03-04 15:08 | PATHOLOGY ---
PATHOLOGY REPORT * * * * * * * * FINAL DIAGNOSIS: Gallbladder, laparoscopic cholecystectomy: - Chronic cholecystitis. COMMENT: There are no calculi identified within the gallbladder lumen or specimen container. Sections of the gallbladder show chronic inflammation. There is no evidence of malignancy. (JPM:csd; d/t: 03/04/2017) REPORT ELECTRONICALLY SIGNED BY: Jack Padron M.D. DATE/TIME: 03/04/2017 15:07 * * * * * * * * GROSS PATHOLOGY: Received in formalin labeled "Josh Rosado - gallbladder and contents," is a 7.2 x 3.8 x 3.8 cm, intact gallbladder with cherry-green, slightly hemorrhagic, and wrinkled serosal surfaces. Opening the gallbladder reveals dark green and velvety mucosa and an average wall thickness of 0.1 cm. Calculi are not present (even after filtration of the specimen and specimen container) and no masses are noted grossly. Assistant Film Editor sections from the body and fundus are submitted along with the proximal margin in cassette A1. (TTL; 03/01/2017) INITIAL CPT CODE(S): A; 99812 Professional services [place] [address] Technical services performed by [facility] at [address] [place] [address]. SPECIMEN(S) RECEIVED: A.Gallbladder and contents CLINICAL HISTORY: Symptomatic cholelithiasis PATIENT: JOSH ROSADO /AGE: 4 1985 (Age: 31) PATIENT #: [id number] ALT CASE #: SPECIMEN COLLECTION DATE: 02/28/2017 SPECIMEN RECEIVED DATE: 02/28/2017 [facility] - [address] [place] [address] - PHONE: [phone] * * * END OF REPORT * * *
== END 2017-03-01 12:15 | disposition home or self-care (01) ==
LOC: ER 12:17 → 4 NORTH 15:13
PROVIDERS: ADMIT Internal Medicine; ATTEND Internal Medicine
DX: K80.20 Calculus of gallbladder without cholecystitis without obstruction (principal); E03.9 Hypothyroidism, unspecified; E66.9 Obesity, unspecified; F32.9 Major depressive disorder, single episode, unspecified; J45.909 Unspecified asthma, uncomplicated; K21.9 Gastro-esophageal reflux disease without esophagitis; K75.9 Inflammatory liver disease, unspecified; M35.2 Behcet's disease; Z87.11 Personal history of peptic ulcer disease
CPT/HCPCS: 36415; 47562; 71010; 76705; 80048; 80053; 80061; 80074; 80076; 81001; 81025; 82553; 83520; 83690; 83735; 83880; 84443; 84484; 85007; 85027; 85379; 86255; 93005; 93306; 94640; 94760; 96374; 96375; 96376; 99285; C1782; G0378; J0690; J1100; J1885; J2060; J2270; J2405; J2704; J2710; J3010; J3490; J7030; J7120; J7620; 88304; G0379; Q9967; 83516

== ENCOUNTER 2017-03-28 22:17 | Emergency (ER) | payer OTHER ==
[~2017-03-28] VITALS: Ht 165.1 cm; Wt 97.1 kg
[~2017-03-28 22:17] MED LIST changes: +DOCU-27 PO; +IBUP-1060 PO; +TRAM50TA PO
[2017-03-28 22:44] VITALS: BP 123/57
--- NOTE | 2017-03-28 22:53 | PHYS DOC ---
Past Medical History Past Medical History: Other Additional Past Medical Histor: psuedotumor cerebri Past Surgical History: Other Additional Past Surgical Histo: Adnoidectomy, 2 throat cysts removed. Alcohol Use: None Drug Use: None Adult General Chief Complaint Chief Complaint: CONSTIPATION HPI HPI Patient is a 32 year old female who presents with who mother for constipation over the past few days. Last bowel movement was 3 or 4 days ago and hard. She tried a enema at home without success, so she came here seeking a fecal disimpaction. She denies abdominal pain, bloody or dark stools, nausea or vomiting, fever or chills. She is not taking any oral laxatives or stool softeners. She denies vaginal bleeding or discharge, dysuria, back pain. Review of Systems Review of Systems Constitutional: Denies fever or chills [] Eyes: Denies change in visual acuity, redness, or eye pain [] HENT: Denies nasal congestion or sore throat [] Respiratory: Denies cough or shortness of breath [] Cardiovascular: No additional information not addressed in HPI [] GI: Denies abdominal pain, nausea, vomiting, bloody stools or diarrhea [] : Denies dysuria or hematuria [] Musculoskeletal: Denies back pain or joint pain [] Integument: Denies rash or skin lesions [] Neurologic: Denies headache, focal weakness or sensory changes [] Endocrine: Denies polyuria or polydipsia [] Allergies Allergies Allergies Coded Allergies Type Severity Reaction Last Updated Verified adhesive Allergy Mild bruising 02/28/17 Yes Physical Exam Physical Exam Constitutional: Well developed, well nourished, no acute distress, non-toxic appearance. [] HENT: Normocephalic, atraumatic, bilateral external ears normal, oropharynx moist, nose normal. [] Eyes: PERRLA, EOMI. [] Neck: Normal range of motion, supple. [] Cardiovascular:Heart rate regular rhythm [] Lungs & Thorax: Bilateral breath sounds clear to auscultation [] Abdomen: Bowel sounds normal, soft, no tenderness. Normal-appearing external rectal exam, nontender rectal exam, hard stool in vault with brown stool on glove [] Skin: Warm, dry, no erythema, no rash. [] Back: No tenderness, no CVA tenderness. [] Extremities: ROM intact, no edema. [] Neurologic: Alert and oriented X 3, normal motor function, normal sensory function, no focal deficits noted. [] Psychologic: Affect normal, judgement normal, mood normal. [] Current Patient Data Vital Signs Vital Signs Date Time Temp Pulse Resp B/P (MAP) Pulse Ox O2 Delivery O2 Flow Rate FiO2 03/28/17 22:44 98.3 81 20 123/57 (79) 100 Room Air 98.3 Lab Values Laboratory Tests Test 03/28/17 21:47 POC Urine HCG, Qualitative Hcg negative (Negative) Course & Med Decision Making Course & Med Decision Making She had a bowel movement after disimpaction. She was ready to go home. Discussed symptomatic management. Return precautions given. She understands and agrees with plan. Dragon Disclaimer Dragon Disclaimer This electronic medical record was generated, in whole or in part, using a voice recognition dictation system. PROCEDURE Procedure Disimpacted hard stool by digital rectal exam with production of nonbloody bowel movement. Departure Departure Impression: Primary Impression: Constipation Disposition: HOME, SELF-CARE Condition: STABLE Referrals: MINERVA DOAN MD (PCP) Patient Instructions: Constipation, Adult, [id number] Additional Instructions: Take MiraLAX as needed for constipation. Take Colace daily for stool softening. Follow-up with your primary care doctor within one week. Return for any concerns. Problem Qualifiers Primary Impression: Constipation Constipation type: unspecified constipation type Qualified Codes: K59.00 - Constipation, unspecified Heather WEBB MD March 28, 2017 22:53
== END 2017-03-28 22:59 | disposition home or self-care (01) ==
LOC: ER 22:17
DX: K59.00 Constipation, unspecified (principal); Z91.048 Other nonmedicinal substance allergy status
CPT/HCPCS: 81025; 84703; 99282; 99283; 99284

== ENCOUNTER 2017-04-18 05:19 | Emergency (ER) | payer OTHER ==
[~2017-04-18] VITALS: Ht 165.1 cm; Wt 95.3 kg
--- NOTE | 2017-04-18 05:34 | PHYS DOC ---
Past Medical History Past Medical History: Other Additional Past Medical Histor: psuedotumor cerebri, BEHCETS Past Surgical History: Cholecystectomy Additional Past Surgical Histo: Adnoidectomy, 2 throat cysts removed. Alcohol Use: None Drug Use: None Adult General Chief Complaint Chief Complaint: CHEST WALL PAIN HPI HPI Patient is a 32 year old female who presents with complaint of chest pain. She states that it 0430 a.m. she was awakened with chest pain. The pain was in her left ribs predominantly middle of her chest and into her left shoulder. She did not feel short of air however the pain worsened if she took a deep breath. No known fever. No cough. No recent travel. No tobacco use. No hormone replacement therapy or oral contraceptive use. She denies abdominal pain. No nausea vomiting or diarrhea. She did have a laparoscopic cholecystectomy on 03/01/17. She was seen in emergency department on 03/28/17 for constipation. Is the first episode at the chest pain that she has had she states. Review of Systems Review of Systems Constitutional: Denies fever or chills Eyes: Denies change in visual acuity, redness, or eye pain HENT: Denies nasal congestion or sore throat Respiratory: Denies cough or shortness of breath Cardiovascular: See history of present illness GI: Denies abdominal pain, nausea, vomiting, bloody stools or diarrhea : Denies dysuria or hematuria Musculoskeletal: Denies back pain or joint pain Integument: Denies rash or skin lesions Neurologic: Denies headache, focal weakness or sensory changes Family History Family History Denies history of blood clots Current Medications Current Medications Current Medications Medications (Trade) Dose Ordered Sig/Maggy Start Time Stop Time Status Last Admin Dose Admin Morphine Sulfate 2 mg 1X ONCE 04/18/17 06:15 04/18/17 06:16 DC 04/18/17 06:15 2 MG Ondansetron HCl (Zofran) 4 mg 1X ONCE 04/18/17 06:15 04/18/17 06:16 DC 04/18/17 06:31 4 MG Sodium Chloride 1,000 ml @ 100 mls/hr Q10H 04/18/17 06:00 04/18/17 15:59 04/18/17 05:55 100 MLS/HR Allergies Allergies Allergies Coded Allergies Type Severity Reaction Last Updated Verified adhesive Allergy Mild bruising 02/28/17 Yes Physical Exam Physical Exam Constitutional: Well developed, well nourished, no acute distress, non-toxic appearance. HENT: Normocephalic, atraumatic, bilateral external ears normal, oropharynx moist, no oral exudates, nose normal. Eyes: PERRLA, EOMI, conjunctiva normal, no discharge. Neck: Normal range of motion, no tenderness, supple, no stridor. Cardiovascular:Heart rate regular rhythm, no murmur Lungs & Thorax: Bilateral breath sounds clear to auscultation. No conversational dyspnea. No rales rhonchi or wheezing. Abdomen: Bowel sounds normal, soft, no tenderness, no masses, no pulsatile masses. Skin: Warm, dry, no erythema, no rash. Back: No tenderness, no CVA tenderness. Extremities: No tenderness, no cyanosis, no clubbing, ROM intact, no edema. Negative Homans sign, no calf pain swelling or tenderness. Neurologic: Alert and oriented X 3, normal motor function, normal sensory function, no focal deficits noted. Psychologic: Affect normal, judgement normal, mood normal. Current Patient Data Vital Signs Vital Signs Date Time Temp Pulse Resp B/P (MAP) Pulse Ox O2 Delivery O2 Flow Rate FiO2 04/18/17 06:15 18 Room Air 04/18/17 05:26 97.2 84 115/67 (83) 100 97.2 Lab Values Laboratory Tests Test 04/18/17 05:40 04/18/17 05:44 White Blood Count 7.6 x10^3/uL (4.0-11.0) Red Blood Count 4.09 x10^6/uL (3.50-5.40) Hemoglobin 11.4 g/dL (12.0-15.5) L Hematocrit 34.8 % (36.0-47.0) L Mean Corpuscular Volume 85 fL (79-100) Mean Corpuscular Hemoglobin 28 pg (25-35) Mean Corpuscular Hemoglobin Concent 33 g/dL (31-37) Red Cell Distribution Width 13.7 % (11.5-14.5) Platelet Count 192 x10^3/uL (140-400) Neutrophils (%) (Auto) 69 % (31-73) Lymphocytes (%) (Auto) 25 % (24-48) Monocytes (%) (Auto) 4 % (0-9) Eosinophils (%) (Auto) 1 % (0-3) Basophils (%) (Auto) 0 % (0-3) Neutrophils # (Auto) 5.2 x10^3uL (1.8-7.7) Lymphocytes # (Auto) 1.9 x10^3/uL (1.0-4.8) Monocytes # (Auto) 0.3 x10^3/uL (0.0-1.1) Eosinophils # (Auto) 0.1 x10^3/uL (0.0-0.7) Basophils # (Auto) 0.0 x10^3/uL (0.0-0.2) Prothrombin Time 12.7 SEC (11.7-14.0) Prothrombin Time INR 1.0 (0.8-1.1) D-Dimer (Shanell) 0.27 ug/mlFEU (0.00-0.50) Sodium Level 142 mmol/L (136-145) Potassium Level 3.4 mmol/L (3.5-5.1) L Chloride Level 105 mmol/L (98-107) Carbon Dioxide Level 28 mmol/L (21-32) Anion Gap 9 (6-14) Blood Urea Nitrogen 9 mg/dL (7-20) Creatinine 1.0 mg/dL (0.6-1.0) Estimated GFR (Cockcroft-Gault) 78.2 Glucose Level 89 mg/dL (70-99) Calcium Level 8.8 mg/dL (8.5-10.1) Total Bilirubin 0.6 mg/dL (0.2-1.0) Direct Bilirubin 0.2 mg/dL (0.0-0.2) Aspartate Amino Transferase (AST) 19 U/L (15-37) Alanine Aminotransferase (ALT) 23 U/L (14-59) Alkaline Phosphatase 102 U/L (46-116) Creatine Kinase 85 U/L (26-192) Creatine Kinase MB (Mass) < 0.5 ng/mL (0.0-3.6) Creatine Kinase MB Relative Index % (0-4) Troponin I Quantitative < 0.017 ng/mL (0.000-0.055) ZN-Vqn-T-Type Natriuretic Peptide 49 pg/mL (0-124) Total Protein 7.0 g/dL (6.4-8.2) Albumin 3.6 g/dL (3.4-5.0) Lipase 184 U/L (73-393) POC Urine HCG, Qualitative Hcg negative (Negative) Laboratory Tests 04/18/17 05:40 Laboratory Tests 04/18/17 05:40 Laboratory Tests Test 04/18/17 05:40 04/18/17 05:44 White Blood Count 7.6 x10^3/uL Red Blood Count 4.09 x10^6/uL Hemoglobin 11.4 g/dL Hematocrit 34.8 % Mean Corpuscular Volume 85 fL Mean Corpuscular Hemoglobin 28 pg Mean Corpuscular Hemoglobin Concent 33 g/dL Red Cell Distribution Width 13.7 % Platelet Count 192 x10^3/uL Neutrophils (%) (Auto) 69 % Lymphocytes (%) (Auto) 25 % Monocytes (%) (Auto) 4 % Eosinophils (%) (Auto) 1 % Basophils (%) (Auto) 0 % Neutrophils # (Auto) 5.2 x10^3uL Lymphocytes # (Auto) 1.9 x10^3/uL Monocytes # (Auto) 0.3 x10^3/uL Eosinophils # (Auto) 0.1 x10^3/uL Basophils # (Auto) 0.0 x10^3/uL Prothrombin Time 12.7 SEC Prothromb Time International Ratio 1.0 D-Dimer (Shanell) 0.27 ug/mlFEU Sodium Level 142 mmol/L Potassium Level 3.4 mmol/L Chloride Level 105 mmol/L Carbon Dioxide Level 28 mmol/L Anion Gap 9 Blood Urea Nitrogen 9 mg/dL Creatinine 1.0 mg/dL Estimated GFR (Cockcroft-Gault) 78.2 Glucose Level 89 mg/dL Calcium Level 8.8 mg/dL Total Bilirubin 0.6 mg/dL Direct Bilirubin 0.2 mg/dL Aspartate Amino Transf (AST/SGOT) 19 U/L Alanine Aminotransferase (ALT/SGPT) 23 U/L Alkaline Phosphatase 102 U/L Creatine Kinase 85 U/L Creatine Kinase MB (Mass) < 0.5 ng/mL Creatine Kinase MB Relative Index % Troponin I Quantitative < 0.017 ng/mL TG-Cmk-E-Type Natriuretic Peptide 49 pg/mL Total Protein 7.0 g/dL Albumin 3.6 g/dL Lipase 184 U/L Bedside Urine HCG, Qualitative Hcg negative Current Medications Medications (Trade) Dose Ordered Sig/Maggy Route PRN Reason Start Time Stop Time Status Last Admin Dose Admin Sodium Chloride 1,000 ml @ 100 mls/hr Q10H IV 04/18/17 06:00 04/18/17 15:59 04/18/17 05:55 100 MLS/HR Morphine Sulfate 2 mg 1X ONCE IV 04/18/17 06:15 04/18/17 06:16 DC 04/18/17 06:15 2 MG Ondansetron HCl (Zofran) 4 mg 1X ONCE IV 04/18/17 06:15 04/18/17 06:16 DC 04/18/17 06:31 4 MG EKG EKG EKG interpreted by myself at 0528 AM: NSR, rate 89, nonsp ST changes; no STEMI Radiology/Procedures Radiology/Procedures CXR: Interpreted by myself. Normal lung wray. Normal cardiac silhouette. No infiltrates. Course & Med Decision Making Course & Med Decision Making Pertinent Labs and Imaging studies reviewed. (See chart for details) Evaluated patient upon arrival. Surgery 03/01/17; still within range for PE. Will check lab. Patient appears in no respiratory distress at this time. 0700 AM: Lab unremarkable; D dimer negative. UCG negative. Home to f/u w PCP. Will treat with naprosyn for pleurisy. Toradol IV dosed here. Dragon Disclaimer Dragon Disclaimer This electronic medical record was generated, in whole or in part, using a voice recognition dictation system. Departure Departure Impression: Primary Impression: Chest pain Additional Impression: Pleurisy Disposition: HOME, SELF-CARE Condition: GOOD Referrals: MINERVA DOAN MD (PCP) Scripts Metaxalone (SKELAXIN) 800 Mg Tablet 1 TAB PO TID, #30 TAB Prov: THAD DEVRIES MD 04/18/17 Naproxen Sodium (NAPROXEN SODIUM) 550 Mg Tablet 1 TAB PO BID, #30 TAB Prov: THAD DEVRIES MD 04/18/17 Problem Qualifiers THAD DEVRIES MD April 18, 2017 05:34
[2017-04-18] MEDS ORDERED: IV NORMAL SALINE 1000ML BAG 1,000 ML IV SCH (06:00)
[2017-04-18 06:02] LABS: CALCIUM 8.8 mg/dL (8.5-10.1); GFR 78.2; POTASSIUM 3.4 mmol/L (3.5-5.1)
[2017-04-18 06:08] LABS: ALBUMIN 3.6 g/dL (3.4-5.0); DIRECT BILIRUBIN 0.2 mg/dL (0.0-0.2); TOTAL BILIRUBIN 0.6 mg/dL (0.2-1.0)
[2017-04-18 06:09] LABS: BASO % 0 % (0-3); EOS % 1 % (0-3); HEMATOCRIT 34.8 % (36.0-47.0); HEMOGLOBIN 11.4 g/dL (12.0-15.5); LYMPH # 1.9 x10^3/uL (1.0-4.8); LYMPH % 25 % (24-48); MEAN CORPUSCULAR HEMOGLOBIN 28 pg (25-35); MEAN CORPUSCULAR HGB CONC 33 g/dL (31-37); MEAN CORPUSCULAR VOLUME 85 fL (79-100); MONO % 4 % (0-9); NEUT % 69 % (31-73); PLATELET COUNT 192 x10^3/uL (140-400); RED BLOOD COUNT 4.09 x10^6/uL (3.50-5.40); RED CELL DISTRIBUTION WIDTH 13.7 % (11.5-14.5); WHITE BLOOD COUNT 7.6 x10^3/uL (4.0-11.0)
[2017-04-18] MEDS ORDERED: ONDANSETRON PF 4 MG/2 ML VIAL. IV ONE (06:15)
[2017-04-18] MEDS ORDERED: MORPHINE SULFATE 2 MG/ML DISP.SYRIN. IV ONE (06:15)
[2017-04-18 06:16] LABS: CKMB MASS < 0.5 ng/mL (0.0-3.6); CREATINE KINASE 85 U/L (26-192)
[2017-04-18 06:30] VITALS: BP 109/65
[2017-04-18 06:45] LABS: PROTHROMBIN TIME PATIENT 12.7 SEC (11.7-14.0)
[2017-04-18 06:59] LABS: BILIRUBIN,URINE NEGATIVE (NEG); GLUCOSE,URINE NEGATIVE (NEG); NITRITE,URINE NEGATIVE (NEG); PROTEIN,URINE NEGATIVE (NEG-TRACE)
[2017-04-18] MEDS ORDERED: KETOROLAC TROMETHAMINE 30 MG/ML INJ. IV ONE (07:00)
[2017-04-18] MEDS ORDERED: NAPR550T3 PO (07:00)
[2017-04-18] MEDS ORDERED: META800T21 PO (07:02)
[2017-04-18 07:13] LABS: BACTERIA,URINE FEW /HPF (0-FEW); RBC,URINE OCC /HPF (0-2); SQUAMOUS EPITHELIAL CELL,UR FEW /LPF; WBC,URINE OCC /HPF (0-4)
[2017-04-18] MEDS ORDERED: HYDROmorphone 2 MG/ML VIAL IV ONE (07:15)
--- NOTE | 2017-04-18 07:38 | RAD ---
Indication chest pain. A single view of the chest was obtained and comparison is made to an examination 02/27/2017. The heart and pulmonary vessels appear normal. The lungs are clear. There has not been a significant change in the appearance of the chest compared to the prior exam. IMPRESSION: No acute or focal process. No significant change
--- NOTE | 2017-04-18 07:53 | EKG ---
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
== END 2017-04-18 07:15 | disposition home or self-care (01) ==
LOC: ER 05:19
DX: R07.9 Chest pain, unspecified (principal); R09.1 Pleurisy; Z91.048 Other nonmedicinal substance allergy status
CPT/HCPCS: 36415; 71010; 80048; 80076; 81001; 82553; 83690; 83880; 84484; 84703; 85027; 85379; 85610; 93005; 96361; 96374; 96375; 99285; J1885; J2270; J2405; J7030; 81025

== ENCOUNTER 2017-07-13 21:12 | Emergency (ER) | payer OTHER ==
[~2017-07-13] VITALS: Ht 165.1 cm; Wt 98.4 kg
[~2017-07-13 21:12] MED LIST changes: -ARIP2TAB PO; +ARIP2TAB3 PO; +DOCU-109 PO; -DOCU-27 PO; -MELO-156 PO; +MELO7.5T29 PO; +META-21 PO; +NAPR-677 PO; +[UNRECOGNIZED DRUG - CODE] PO; -[UNRECOGNIZED DRUG - CODE] PO
[2017-07-13 21:51] VITALS: BP 141/63
--- NOTE | 2017-07-13 22:32 | PHYS DOC ---
Past Medical History Past Medical History: Asthma, Other Additional Past Medical Histor: psuedotumor cerebri, BEHCETS Past Surgical History: Cholecystectomy Additional Past Surgical Histo: Adnoidectomy, 2 throat cysts removed. Alcohol Use: None Drug Use: None Adult General Chief Complaint Chief Complaint: CONSTIPATION HPI HPI Patient is a 32 year old female with history of asthma and cholecystectomy who presents today with constipation for 4 days. Patient denies any nausea vomiting or diarrhea. Patient states this is a chronic problem. She states she has not been taking her stool softeners. Patient denies any fever. Patient denies taking any medications that could cause her constipation Review of Systems Review of Systems Constitutional: Denies fever or chills [] Eyes: Denies change in visual acuity, redness, or eye pain [] HENT: Denies nasal congestion or sore throat [] Respiratory: Denies cough or shortness of breath [] Cardiovascular: No additional information not addressed in HPI [] GI: Constipation : Denies dysuria or hematuria [] Musculoskeletal: Denies back pain or joint pain [] Integument: Denies rash or skin lesions [] Neurologic: Denies headache, focal weakness or sensory changes [] Endocrine: Denies polyuria or polydipsia [] Allergies Allergies Allergies Coded Allergies Type Severity Reaction Last Updated Verified adhesive Allergy Mild bruising 02/28/17 Yes Physical Exam Physical Exam Constitutional: Well developed, well nourished, no acute distress, non-toxic appearance. [] HENT: Normocephalic, atraumatic, bilateral external ears normal, oropharynx moist, no oral exudates, nose normal. [] Eyes: PERRLA, EOMI, conjunctiva normal, no discharge. [] Neck: Normal range of motion, no tenderness, supple, no stridor. [] Cardiovascular:Heart rate regular rhythm, no murmur [] Lungs & Thorax: Bilateral breath sounds clear to auscultation [] Abdomen: Bowel sounds normal, soft, no tenderness, no masses, no pulsatile masses. External rectum appears normal, on rectal exam there is a palpable mass consistent with stool on the lower rectal area. Unfortunately my fingers are too short to reach the stool and disimpact patient. Skin: Warm, dry, no erythema, no rash. [] Back: No tenderness, no CVA tenderness. [] Extremities: No tenderness, no cyanosis, no clubbing, ROM intact, no edema. [] Neurologic: Alert and oriented X 3, normal motor function, normal sensory function, no focal deficits noted. [] Psychologic: Affect normal, judgement normal, mood normal. [] Current Patient Data Vital Signs Vital Signs Date Time Temp Pulse Resp B/P (MAP) Pulse Ox O2 Delivery O2 Flow Rate FiO2 07/13/17 21:51 98.7 104 18 141/63 (89) 96 Room Air 98.7 EKG EKG [] Radiology/Procedures Radiology/Procedures [] Course & Med Decision Making Course & Med Decision Making Pertinent Labs and Imaging studies reviewed. (See chart for details) Patient is in the ED with constipation for 4 days. Milk of molasses enema was performed and she had very large BM with relief of symptoms. Provided educations on constipation, diet, OTC Meds and excise etc. Provided return precautions. Dragon Disclaimer Dragon Disclaimer This electronic medical record was generated, in whole or in part, using a voice recognition dictation system. Departure Departure Impression: Primary Impression: Constipation Disposition: 01 HOME, SELF-CARE Condition: STABLE Referrals: MINERVA DOAN MD (PCP) Follow-up with your doctor next week Patient Instructions: Constipation, Adult Additional Instructions: You were seen for constipation. You need to take MiraLAX every day. You need to increase your dietary fiber intake as well as a water intake. You need to consider using a stool softener every day. You can take magnesium citrate when you are constipated. You can perform an enema and suppository when constipated. Consider exercising. Scripts Polyethylene Glycol 3350 (MIRALAX) 17 Gm Powd.pack 1 PACKET PO DAILY, #30 PACKET 3 Refills Prov: JORGE LUIS RANGEL APRN 07/13/17 Problem Qualifiers Primary Impression: Constipation Constipation type: unspecified constipation type Qualified Codes: K59.00 - Constipation, unspecified BISHOPCYNTHIAJORGE LUIS ROADWAY TECHNICIAN Jul 13, 2017 22:32
[2017-07-13] MEDS ORDERED: POLY17PO29 PO (23:33)
== END 2017-07-13 23:35 | disposition home or self-care (01) ==
LOC: ER 21:12
DX: K59.00 Constipation, unspecified (principal); J45.909 Unspecified asthma, uncomplicated; Z90.49 Acquired absence of other specified parts of digestive tract; Z88.8 Allergy status to other drugs, medicaments and biological substances
CPT/HCPCS: 99284

== ENCOUNTER 2017-08-04 01:34 | Emergency (ER) | payer OTHER ==
[~2017-08-04 01:34] MED LIST changes: +POLY17PO29 PO
--- NOTE | 2017-08-04 01:36 | PHYS DOC ---
Past Medical History Past Medical History: Asthma, Other Additional Past Medical Histor: psuedotumor cerebri, BEHCETS Past Surgical History: Cholecystectomy Additional Past Surgical Histo: Adnoidectomy, 2 throat cysts removed. Alcohol Use: None Drug Use: None Adult General Chief Complaint Chief Complaint: SORE THROAT HPI HPI Patient is a 32 year old -[place] female who presents with she states is just started tonight. She denies any fevers chills nausea vomiting. She denies any changes in her voice. She does states she's had a lot of nasal discharge. She states she took NyQuil but doesn't feel any better. She has had her tonsils removed in the past. Review of Systems Review of Systems Constitutional: Denies fever or chills [] Eyes: Denies change in visual acuity, redness, or eye pain [] HENT: Positive for nasal congestion and sore throat [] Respiratory: Denies cough or shortness of breath [] Cardiovascular: No additional information not addressed in HPI [] GI: Denies abdominal pain, nausea, vomiting, bloody stools or diarrhea [] : Denies dysuria or hematuria [] Musculoskeletal: Denies back pain or joint pain [] Integument: Denies rash or skin lesions [] Neurologic: Denies headache, focal weakness or sensory changes [] Endocrine: Denies polyuria or polydipsia [] Allergies Allergies Allergies Coded Allergies Type Severity Reaction Last Updated Verified adhesive Allergy Mild bruising 02/28/17 Yes Physical Exam Physical Exam Constitutional: Well developed, well nourished, no acute distress, non-toxic appearance. [] HENT: Normocephalic, atraumatic, bilateral external ears normal, oropharynx moist, no oral exudates, posterior pharynx cobblestoning appearance, nose normal. [] Eyes: PERRLA, EOMI, conjunctiva normal, no discharge. [] Neck: Normal range of motion, no tenderness, supple, no stridor. No cervical lymphadenopathy or tenderness appreciated Cardiovascular:Heart rate regular rhythm, no murmur [] Lungs & Thorax: Bilateral breath sounds clear to auscultation [] Abdomen: Bowel sounds normal, soft, no tenderness, no masses, no pulsatile masses. [] Skin: Warm, dry, no erythema, no rash. [] Back: No tenderness, no CVA tenderness. [] Extremities: No tenderness, no cyanosis, no clubbing, ROM intact, no edema. [] Neurologic: Alert and oriented X 3, normal motor function, normal sensory function, no focal deficits noted. [] Psychologic: Affect normal, judgement normal, mood normal. [] Current Patient Data Vital Signs Vital Signs Date Time Temp Pulse Resp B/P (MAP) Pulse Ox O2 Delivery O2 Flow Rate FiO2 08/04/17 01:47 98.6 79 20 99 Room Air 98.6 EKG EKG [] Radiology/Procedures Radiology/Procedures [] Impressions: Sore throat secondary to postnasal drip Course & Med Decision Making Course & Med Decision Making Pertinent Labs and Imaging studies reviewed. (See chart for details) Rapid strep was negative, I suspect or sore throats likely secondary to postnasal drip. She does not have any concerning symptoms such as trismus or other issues at this time. She is instructed to take [id number] Claritin or Sofia. She can use Chloraseptic spray or lodgings for discomfort. Return precautions given for troubles breathing or swallowing high fevers or other concerns. Dragon Disclaimer Dragon Disclaimer This electronic medical record was generated, in whole or in part, using a voice recognition dictation system. Departure Departure Impression: Primary Impression: Sore throat Disposition: 01 HOME, SELF-CARE Condition: STABLE Referrals: MINERVA DOAN MD (PCP) Patient Instructions: Sore Throat, [id number] Additional Instructions: You were seen and I for your sore throat. Strep throat test was negative. You can use Claritin they can purchase [id number] to help dry up her nose and this should help prevent your throat from hurting. You can also use Chloraseptic spray or lodgings that he can purchase [id number] this is the numbing medicine to help state with the pain. You should follow-up with primary care physician if not better in the next few days. If you have troubles breathing swallowing or other concerns please return back to emergency department. PRESTON PISANO MD Aug 04, 2017 01:36
[2017-08-04 01:47] VITALS: BP 123/73
[2017-08-04 10:14] LABS: NEGATIVE OBC STREP NEG; POSITIVE OBC STREP POS
== END 2017-08-04 02:11 | disposition home or self-care (01) ==
LOC: ER 01:34
DX: J02.9 Acute pharyngitis, unspecified (principal); J45.909 Unspecified asthma, uncomplicated; Z88.8 Allergy status to other drugs, medicaments and biological substances
CPT/HCPCS: 87070; 87880; 99284

== ENCOUNTER → 2017-08-14 | Day surgery (SDC) | payer OTHER ==
[~2017-08-14] MED LIST changes: +HYDROmorphone 2 MG/ML VIAL IV PRN; +IV RINGERS,LACTATED 1000ML 1,000 ML IV SCH; +LIDOCAINE 1% PF 2 ML VIAL. ID PRN; +LIDOCAINE 2% PF Vial for OR 5 ML VIAL. ONE; +MORPHINE SULFATE 2 MG/ML DISP.SYRIN. IV PRN; +ONDANSETRON PF 4 MG/2 ML VIAL. IV PRN; +PROCHLORPERAZINE 10 MG/2 ML VIAL. IV PRN; +PROPOFOL 40 ML IV ONE; +fentaNYL PF VIAL 100 MCG/2 ML VIAL IV PRN
[2017-08-14 06:54] LABS: NEG OBC UR NEG; POS OBC UR POS
[2017-08-14 07:49] VITALS: BP 108/64
== END | disposition home or self-care (01) ==
LOC: ENDOS 05:47
PROVIDERS: ATTEND Internal Medicine Gastroenterology
DX: K64.0 First degree hemorrhoids (principal); K57.30 Diverticulosis of large intestine without perforation or abscess without bleeding; J45.909 Unspecified asthma, uncomplicated; K21.9 Gastro-esophageal reflux disease without esophagitis; M19.91 Primary osteoarthritis, unspecified site; I10 Essential (primary) hypertension; F41.9 Anxiety disorder, unspecified; F32.9 Major depressive disorder, single episode, unspecified; D64.9 Anemia, unspecified; Z86.69 Personal history of other diseases of the nervous system and sense organs; Z90.49 Acquired absence of other specified parts of digestive tract; Z72.89 Other problems related to lifestyle; Z91.048 Other nonmedicinal substance allergy status
CPT/HCPCS: 45378; 81025; J2704; J2001

== ENCOUNTER 2018-03-23 01:32 | Emergency (ER) | payer OTHER ==
[2018-03-23 01:57] LABS: ADD MAN DIFF? NO
[2018-03-23 01:59] LABS: URINE HCG POC HCG NEGATIVE (Negative)
[2018-03-23] MEDS: IV NORMAL SALINE 1000ML BAG 1,000 ML IV (01:59)
[2018-03-23] MEDS: ONDANSETRON PF 4 MG/2 ML VIAL. IV (01:59)
[2018-03-23 02:01] LABS: BASO # 0.1 x10^3/uL (0.0-0.2); BASO % 1 % (0-3); EOS # 0.2 x10^3/uL (0.0-0.7); EOS % 1 % (0-3); HEMATOCRIT 39.4 % (36.0-47.0); HEMOGLOBIN 13.2 g/dL (12.0-15.5); LYMPH # 3.1 x10^3/uL (1.0-4.8); LYMPH % 29 % (24-48); MEAN CORPUSCULAR HEMOGLOBIN 29 pg (25-35); MEAN CORPUSCULAR HGB CONC 33 g/dL (31-37); MEAN CORPUSCULAR VOLUME 86 fL (79-100); MONO # 0.9 x10^3/uL (0.0-1.1); MONO % 8 % (0-9); NEUT # 6.7 x10^3uL (1.8-7.7); NEUT % 62 % (31-73); PLATELET COUNT 226 x10^3/uL (140-400); RED BLOOD COUNT 4.56 x10^6/uL (3.50-5.40); RED CELL DISTRIBUTION WIDTH 13.8 % (11.5-14.5); WHITE BLOOD COUNT 10.8 x10^3/uL (4.0-11.0)
[2018-03-23 02:03] LABS: BILIRUBIN,URINE NEGATIVE (NEG); CLARITY,URINE CLEAR; COLOR,URINE YELLOW; GLUCOSE,URINE NEGATIVE (NEG); NITRITE,URINE NEGATIVE (NEG); PROTEIN,URINE NEGATIVE (NEG-TRACE); UROBILINOGEN,URINE 0.2 mg/dL (0.2 mg/dL)
[2018-03-23 02:08] LABS: BACTERIA,URINE FEW /HPF (0-FEW); RBC,URINE OCC /HPF (0-2)
[2018-03-23 02:09] LABS: SQUAMOUS EPITHELIAL CELL,UR MOD /LPF
[2018-03-23 02:12] LABS: ANION GAP 7 (6-14); BLOOD UREA NITROGEN 13 mg/dL (7-20); BUN/CREATININE RATIO 13 (6-20); CALCIUM 9.4 mg/dL (8.5-10.1); CARBON DIOXIDE 26 mmol/L (21-32); CHLORIDE 103 mmol/L (98-107); GFR 77.7; GLUCOSE 95 mg/dL (70-99); SODIUM 136 mmol/L (136-145)
[2018-03-23 02:18] LABS: ALBUMIN 3.6 g/dL (3.4-5.0); ALBUMIN/GLOBULIN RATIO 0.9 (1.0-1.7); ALK PHOS 95 U/L (46-116); ALT (SGPT) 17 U/L (14-59); AST (SGOT) 13 U/L (15-37); LIPASE 168 U/L (73-393); MAGNESIUM 1.7 mg/dL (1.8-2.4); TOTAL BILIRUBIN 0.7 mg/dL (0.2-1.0); TOTAL PROTEIN 7.7 g/dL (6.4-8.2)
[2018-03-23] MEDS: MAGNESIUM SULFATE 1GM 100 ML IV (02:55)
== END 2018-03-23 04:14 | disposition home or self-care (01) ==
LOC: ER 01:32
DX: E83.42 Hypomagnesemia (principal); R53.83 Other fatigue; J45.909 Unspecified asthma, uncomplicated; Z79.899 Other long term (current) drug therapy; Z91.048 Other nonmedicinal substance allergy status
CPT/HCPCS: 36415; 80053; 81001; 81025; 83690; 83735; 85025; 87086; 93005; 96361; 96365; 96375; 99285; J2405; J3475; J7030

== ENCOUNTER 2018-12-15 13:33 | Emergency (ER) | payer OTHER ==
[~2018-12-15] VITALS: Ht 165.1 cm; Wt 104.3 kg
[~2018-12-15 13:33] MED LIST changes: -HYDROmorphone 2 MG/ML VIAL IV PRN; -IV RINGERS,LACTATED 1000ML 1,000 ML IV SCH; -LIDOCAINE 1% PF 2 ML VIAL. ID PRN; -LIDOCAINE 2% PF Vial for OR 5 ML VIAL. ONE; -MORPHINE SULFATE 2 MG/ML DISP.SYRIN. IV PRN; +ONDA4TAB10 SL; -ONDANSETRON PF 4 MG/2 ML VIAL. IV PRN; -PROCHLORPERAZINE 10 MG/2 ML VIAL. IV PRN; -PROPOFOL 40 ML IV ONE; +RANI-348 PO; -RANI75TA95 PO; -fentaNYL PF VIAL 100 MCG/2 ML VIAL IV PRN
[2018-12-15 13:34] VITALS: BP 121/67
[2018-12-15] MEDS ORDERED: ASPIRIN 325 MG TABLET PO ONE (14:30)
--- NOTE | 2018-12-15 14:37 | EKG ---
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
[2018-12-15 14:38] LABS: BASO % 1 % (0-3); EOS # 0.1 x10^3/uL (0.0-0.7); EOS % 1 % (0-3); HEMATOCRIT 39.3 % (36.0-47.0); HEMOGLOBIN 12.9 g/dL (12.0-15.5); LYMPH # 1.2 x10^3/uL (1.0-4.8); LYMPH % 15 % (24-48); MEAN CORPUSCULAR HEMOGLOBIN 29 pg (25-35); MEAN CORPUSCULAR HGB CONC 33 g/dL (31-37); MEAN CORPUSCULAR VOLUME 87 fL (79-100); MONO # 0.6 x10^3/uL (0.0-1.1); MONO % 8 % (0-9); NEUT % 76 % (31-73); PLATELET COUNT 183 x10^3/uL (140-400); RED BLOOD COUNT 4.52 x10^6/uL (3.50-5.40); RED CELL DISTRIBUTION WIDTH 13.6 % (11.5-14.5); WHITE BLOOD COUNT 7.9 x10^3/uL (4.0-11.0)
[2018-12-15 14:46] LABS: BILIRUBIN,URINE NEGATIVE (NEG); CLARITY,URINE CLEAR; COLOR,URINE YELLOW; NITRITE,URINE NEGATIVE (NEG); PH,URINE 6.5; PROTEIN,URINE NEGATIVE (NEG-TRACE)
[2018-12-15 14:52] LABS: CALCIUM 9.3 mg/dL (8.5-10.1); CREATININE 0.9 mg/dL (0.6-1.0); GFR 87.8; POTASSIUM 4.2 mmol/L (3.5-5.1)
[2018-12-15 14:52] LABS: BARBITURATES NEG (NEG); BENZODIAZEPINES NEG (NEG); CANNABINOIDS NEG (NEG); COCAINE NEG (NEG); METHADONE NEG (NEG); OPIATES NEG (NEG); PHENCYCLIDINE NEG (NEG)
[2018-12-15 14:53] LABS: BACTERIA,URINE FEW /HPF (0-FEW); RBC,URINE 0 /HPF (0-2); SQUAMOUS EPITHELIAL CELL,UR MOD /LPF
[2018-12-15 14:54] LABS: AMPHETAMINE/METHAMPHETAMINE NEG (NEG)
[2018-12-15 14:57] LABS: ALBUMIN 3.7 g/dL (3.4-5.0); MAGNESIUM 1.7 mg/dL (1.8-2.4); TOTAL BILIRUBIN 0.8 mg/dL (0.2-1.0); TOTAL PROTEIN 7.4 g/dL (6.4-8.2)
--- NOTE | 2018-12-15 15:08 | RAD ---
ACUTE ABDOMEN SERIES History: chest pain, constipation EPIGASTRIC PAIN. Comparison: April 18, 2017 image without report Heart size not enlarged. No evidence of infiltrate, pleural effusion or pneumothorax. No evidence of free intraperitoneal gas. There is mild stool throughout colon. Bowel gas pattern does not appear obstructive. Surgical clips right upper quadrant. IMPRESSION: No acute radiographic findings. Electronically signed by: Hardik Lara MD (12/15/2018 3:04 PM) [id number]
[2018-12-15] MEDS ORDERED: MAGNESIUM CITRATE 296 ML SOLUTION. PO ONE (16:00)
--- NOTE | 2018-12-15 16:01 | PHYS DOC ---
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 Alcohol Use: None Drug Use: None Adult General Chief Complaint Chief Complaint: CHEST PAIN HPI HPI Patient is a 33 year old female with history of asthma who presents today complaining of mild bilateral upper abdominal pain radiating to her mid substernal area into the left upper arm that began at 11 AM this morning. Patient describes the pain as sharp and intermittent. She states she felt she had gas and took "a gas pill." from the mother. She states symptoms did not improve after taking the gas pill. Patient states her last bowel movement was this morning small and hard. Patient denies being on any hormones, denies any injury, denies any unilateral leg pain, denies any recent hospitalization, denies any shortness of breath. Denies any coughing up of blood. Review of Systems Review of Systems Constitutional: Denies fever or chills [] Eyes: Denies change in visual acuity, redness, or eye pain [] HENT: Denies nasal congestion or sore throat [] Respiratory: Denies cough or shortness of breath [] Cardiovascular: Reports chest pain GI reports abdominal pain and constipation, denies nausea, vomiting, bloody stools or diarrhea [] : Denies dysuria or hematuria [] Musculoskeletal: Denies back pain or joint pain [] Integument: Denies rash or skin lesions [] Neurologic: Denies headache, focal weakness or sensory changes [] All other systems were reviewed and found to be within normal limits, except as documented in this note. Current Medications Current Medications Current Medications Medications (Trade) Dose Ordered Sig/Maggy Start Time Stop Time Status Last Admin Dose Admin Aspirin (Inocencio Aspirin) 325 mg 1X ONCE 12/15/18 14:30 12/15/18 14:31 DC 12/15/18 14:36 325 MG Magnesium Citrate (Citroma) 296 ml 1X ONCE 12/15/18 16:00 12/15/18 16:01 DC Allergies Allergies Allergies Coded Allergies Type Severity Reaction Last Updated Verified adhesive Allergy Mild bruising 08/14/17 Yes Physical Exam Physical Exam Constitutional: Well developed, well nourished, no acute distress, non-toxic appearance. [] HENT: Normocephalic, atraumatic, bilateral external ears normal, oropharynx moist, no oral exudates, nose normal. [] Eyes: PERRLA, EOMI, conjunctiva normal, no discharge. [] Neck: Normal range of motion, no tenderness, supple, no stridor. [] Cardiovascular:Heart rate regular rhythm, no murmur [] Lungs & Thorax: Bilateral breath sounds clear to auscultation [] Abdomen: Bowel sounds normal, soft, no tenderness, no masses, no pulsatile masses. [] Skin: Warm, dry, no erythema, no rash. [] Back: No tenderness, no CVA tenderness. [] Extremities: No tenderness, no cyanosis, no clubbing, ROM intact, no edema. [] Neurologic: Alert and oriented X 3, normal motor function, normal sensory function, no focal deficits noted. [] Psychologic: Affect normal, judgement normal, mood normal. [] Current Patient Data Vital Signs Vital Signs Date Time Temp Pulse Resp B/P (MAP) Pulse Ox O2 Delivery O2 Flow Rate FiO2 12/15/18 13:34 97.4 75 18 121/67 (85) 98 Room Air 97.4 Lab Values Laboratory Tests Test 12/15/18 13:40 12/15/18 14:23 White Blood Count 7.9 x10^3/uL (4.0-11.0) Red Blood Count 4.52 x10^6/uL (3.50-5.40) Hemoglobin 12.9 g/dL (12.0-15.5) Hematocrit 39.3 % (36.0-47.0) Mean Corpuscular Volume 87 fL (79-100) Mean Corpuscular Hemoglobin 29 pg (25-35) Mean Corpuscular Hemoglobin Concent 33 g/dL (31-37) Red Cell Distribution Width 13.6 % (11.5-14.5) Platelet Count 183 x10^3/uL (140-400) Neutrophils (%) (Auto) 76 % (31-73) H Lymphocytes (%) (Auto) 15 % (24-48) L Monocytes (%) (Auto) 8 % (0-9) Eosinophils (%) (Auto) 1 % (0-3) Basophils (%) (Auto) 1 % (0-3) Neutrophils # (Auto) 6.0 x10^3uL (1.8-7.7) Lymphocytes # (Auto) 1.2 x10^3/uL (1.0-4.8) Monocytes # (Auto) 0.6 x10^3/uL (0.0-1.1) Eosinophils # (Auto) 0.1 x10^3/uL (0.0-0.7) Basophils # (Auto) 0.0 x10^3/uL (0.0-0.2) D-Dimer (Shanell) < 0.27 ug/mlFEU Sodium Level 137 mmol/L (136-145) Potassium Level 4.2 mmol/L (3.5-5.1) Chloride Level 104 mmol/L (98-107) Carbon Dioxide Level 28 mmol/L (21-32) Anion Gap 5 (6-14) L Blood Urea Nitrogen 10 mg/dL (7-20) Creatinine 0.9 mg/dL (0.6-1.0) Estimated GFR (Cockcroft-Gault) 87.8 BUN/Creatinine Ratio 11 (6-20) Glucose Level 92 mg/dL (70-99) Calcium Level 9.3 mg/dL (8.5-10.1) Magnesium Level 1.7 mg/dL (1.8-2.4) L Total Bilirubin 0.8 mg/dL (0.2-1.0) Aspartate Amino Transferase (AST) 44 U/L (15-37) H Alanine Aminotransferase (ALT) 38 U/L (14-59) Alkaline Phosphatase 104 U/L (46-116) Troponin I Quantitative < 0.017 ng/mL (0.000-0.055) WQ-Jzq-H-Type Natriuretic Peptide 57 pg/mL (0-124) Total Protein 7.4 g/dL (6.4-8.2) Albumin 3.7 g/dL (3.4-5.0) Albumin/Globulin Ratio 1.0 (1.0-1.7) Thyroid Stimulating Hormone (TSH) 0.967 uIU/mL (0.358-3.74) Urine Collection Type Unknown Urine Color Yellow Urine Clarity Clear Urine pH 6.5 Urine Specific [place] 1.020 Urine Protein Negative mg/dL (NEG-TRACE) Urine Glucose (UA) Negative mg/dL (NEG) Urine Ketones (Stick) Negative mg/dL (NEG) Urine Blood Negative (NEG) Urine Nitrite Negative (NEG) Urine Bilirubin Negative (NEG) Urine Urobilinogen Dipstick 1.0 mg/dL (0.2 mg/dL) Urine Leukocyte Esterase Negative (NEG) Urine RBC 0 /HPF (0-2) Urine WBC 1-4 /HPF (0-4) Urine Squamous Epithelial Cells Mod /LPF Urine Bacteria Few /HPF (0-FEW) Urine Mucus Mod /LPF Urine Opiates Screen Neg (NEG) Urine Methadone Screen Neg (NEG) Urine Barbiturates Neg (NEG) Urine Phencyclidine Screen Neg (NEG) Urine Amphetamine/Methamphetamine Neg (NEG) Urine Benzodiazepines Screen Neg (NEG) Urine Cocaine Screen Neg (NEG) Urine Cannabinoids Screen Neg (NEG) Urine Ethyl Alcohol Neg (NEG) Laboratory Tests 12/15/18 13:40 Laboratory Tests 12/15/18 13:40 EKG EKG 13:[address] Davis sinus rhythm, HR 75 no STEMI[] Radiology/Procedures Radiology/Procedures []PROCEDURE: ACUTE ABDOMEN SERIES ACUTE ABDOMEN SERIES History: chest pain, constipation EPIGASTRIC PAIN. Comparison: April 18, 2017 image without report Heart size not enlarged. No evidence of infiltrate, pleural effusion or pneumothorax. No evidence of free intraperitoneal gas. There is mild stool throughout colon. Bowel gas pattern does not appear obstructive. Surgical clips right upper quadrant. IMPRESSION: No acute radiographic findings. Electronically signed by: Hardik Lara MD (12/15/2018 3:04 PM) [id number] DICTATED and SIGNED BY: HARDIK LARA MD DATE: 12/15/18 1459 Course & Med Decision Making Course & Med Decision Making Pertinent Labs and Imaging studies reviewed. (See chart for details) This is a 33-year-old female patient presenting to the ED today with constipation, bilateral upper abdominal pain radiating to substernal region as well as left upper extremity. EKG was negative, labs are negative for any acute findings including d-dimer, noted for constipation on acute abdominal series. Discharged with magnesium citrate. Talked to patient about the need to increase dietary fiber intake as well as water intake. Discharged with MiraLAX. Dragon Disclaimer Dragon Disclaimer This electronic medical record was generated, in whole or in part, using a voice recognition dictation system. Departure Departure Impression: Primary Impression: Constipation Disposition: 01 HOME, SELF-CARE Condition: STABLE Referrals: MINERVA DOAN MD (PCP) follow up next week Patient Instructions: Constipation, Adult Additional Instructions: You were evaluated in the medicines were noted to be constipated. Please increase your dietary fiber intake, increase your water intake, try to exercise. Take MiraLAX. Scripts Polyethylene Glycol 3350 (MIRALAX) 17 Gm Powd.pack 1 PACKET PO DAILY, #30 PACKET 3 Refills Prov: JORGE LUIS RANGEL APRN 12/15/18 Problem Qualifiers Primary Impression: Constipation Constipation type: unspecified constipation type Qualified Codes: K59.00 - Constipation, unspecified JORGE LUIS RANGEL [place]OWER Dec 15, 2018 16:01
[2018-12-15] MEDS ORDERED: POLY17PO29 PO (16:05)
== END 2018-12-15 16:18 | disposition home or self-care (01) ==
LOC: ER 13:33
DX: K59.00 Constipation, unspecified (principal); M79.622 Pain in left upper arm; R07.2 Precordial pain; R10.11 Right upper quadrant pain; R10.12 Left upper quadrant pain; J45.909 Unspecified asthma, uncomplicated; Z90.49 Acquired absence of other specified parts of digestive tract; Z90.89 Acquired absence of other organs; Z88.8 Allergy status to other drugs, medicaments and biological substances
CPT/HCPCS: 36415; 74022; 80053; 80307; 81001; 83735; 83880; 84443; 84484; 85025; 85379; 93005; 99284-25

== ENCOUNTER 2019-01-18 10:29 | Emergency (ER) | payer MEDICAID, OTHER ==
[~2019-01-18] VITALS: Ht 165.1 cm; Wt 103.1 kg
[2019-01-18] MEDS ORDERED: BENZ100C PO (10:59)
[2019-01-18] MEDS ORDERED: METH4TAB2 PO (10:59)
[2019-01-18] MEDS ORDERED: ALBU2.5V8 INH (10:59)
[2019-01-18] MEDS ORDERED: AZIT250T6 PO (10:59)
[2019-01-18] MEDS ORDERED: IPRATRPIUM/ALBUTEROL 0.5/2.5MG 3 ML NEBU. NEB ONE (11:00)
--- NOTE | 2019-01-18 11:00 | PHYS DOC ---
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 Alcohol Use: None Drug Use: None Adult General Chief Complaint Chief Complaint: COUGH HPI HPI Patient is a 33 year old female who presents with cough, runny nose and throat pain for the last week. Patient states that she does have a history of asthma and she can't find the chart record to her machine. Review of Systems Review of Systems Constitutional: Denies fever or chills [] Eyes: Denies change in visual acuity, redness, or eye pain [] HENT: nasal congestion or sore throat [] Respiratory: cough or denies shortness of breath [] Cardiovascular: No additional information not addressed in HPI [] GI: Denies abdominal pain, nausea, vomiting, bloody stools or diarrhea [] : Denies dysuria or hematuria [] Musculoskeletal: Denies back pain or joint pain [] Integument: Denies rash or skin lesions [] Neurologic: Denies headache, focal weakness or sensory changes [] Endocrine: Denies polyuria or polydipsia [] All other systems were reviewed and found to be within normal limits, except as documented in this note. Allergies Allergies Allergies Coded Allergies Type Severity Reaction Last Updated Verified adhesive Allergy Mild bruising 08/14/17 Yes Physical Exam Physical Exam Constitutional: Well developed, well nourished, no acute distress, non-toxic appearance. [] HENT: Normocephalic, atraumatic, bilateral external ears normal, oropharynx moist, no oral exudates, nose normal. Right ear tympanics foggy. Throat reddened but no swelling or exudates. Eyes: PERRLA, EOMI, conjunctiva normal, no discharge. [] Neck: Normal range of motion, no tenderness, supple, no stridor. [] Cardiovascular:Heart rate regular rhythm, no murmur [] Lungs & Thorax: Bilateral breath sounds clear to auscultation [] Abdomen: Bowel sounds normal, soft, no tenderness, no masses, no pulsatile masses. [] Skin: Warm, dry, no erythema, no rash. [] Back: No tenderness, no CVA tenderness. [] Extremities: No tenderness, no cyanosis, no clubbing, ROM intact, no edema. [] Neurologic: Alert and oriented X 3, normal motor function, normal sensory function, no focal deficits noted. [] Psychologic: Affect normal, judgement normal, mood normal. [] EKG EKG [] Radiology/Procedures Radiology/Procedures [] Course & Med Decision Making Course & Med Decision Making Patient is a 33 year old female who presents with cough, runny nose and throat pain for the last week. Patient states that she does have a history of asthma and she can't find the chart record to her machine. Alert and oriented. Skin pink warm and dry. Mucous membranes are moist. Patient speaks in full complete sentences. Lungs are clear to auscultation all lobes. Bilateral tympanic membranes are boggy but not infected. Throat is reddened and not swollen there are no exudates. Afebrile. Vital signs are within normal limits. She'll be treated with a DuoNeb and given a prescription for pro-air inhaler, azithromycin, Medrol Dosepak. Patient follow-up primary care provider and return if needed. Dragon Disclaimer Dragon Disclaimer This electronic medical record was generated, in whole or in part, using a voice recognition dictation system. Departure Departure Impression: Primary Impression: Cough Disposition: HOME, SELF-CARE Condition: STABLE Referrals: MINERVA DOAN MD (PCP) Patient Instructions: Cough, Adult Additional Instructions: Follow-up her primary care provider. Use medications as prescribed. Scripts Albuterol Sulfate (PROAIR HFA INHALER) 8.5 Gm Hfa.aer.ad 1 PUFF INH PRN Q6HRS PRN for SHORTNESS OF BREATH, #1 INHALER 0 Refills Prov: RANJANA DOBIBNS APRN 01/18/19 Benzonatate (TESSALON PERLE) 100 Mg Capsule 1 CAP PO TID, #30 CAP Prov: RANJANA DOBBINS APRN 01/18/19 Methylprednisolone (MEDROL) 4 Mg Tab.ds.pk 1 PKG PO UD, #1 PKG Prov: RANJANA DOBBINS APRN 01/18/19 Azithromycin (AZITHROMYCIN TABLET) 250 Mg Tablet 1 PKG PO UD, #6 TAB Prov: RANJANA DOBBINS APRN 01/18/19 RANJANA DOBBINS APRN Jan 18, 2019 11:00
[2019-01-18 11:35] VITALS: BP 121/80
== END 2019-01-18 11:35 | disposition home or self-care (01) ==
LOC: ER 10:29
DX: R05 Cough (principal); R09.89 Other specified symptoms and signs involving the circulatory and respiratory systems; R07.0 Pain in throat; J45.909 Unspecified asthma, uncomplicated; Z88.8 Allergy status to other drugs, medicaments and biological substances
CPT/HCPCS: 94640; 99283; J7620

== ENCOUNTER 2019-03-14 21:38 | Emergency (ER) | payer OTHER ==
[~2019-03-14] VITALS: Ht 175.3 cm; Wt 103.0 kg
[~2019-03-14 21:38] MED LIST changes: +ALBU2.5V8 INH; +AZIT250T6 PO; +BENZ100C PO; +METH4TAB2 PO
[2019-03-14 21:40] VITALS: BP 134/76
[2019-03-14] MEDS ORDERED: AMOX875T PO (21:59)
[2019-03-14] MEDS ORDERED: HYDR-2761 PO (21:59)
--- NOTE | 2019-03-14 22:55 | PHYS DOC ---
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 Denies painful swelling. No recent strep, influenza exposure. Denies headache, neck stiffness, rash. No other acute symptoms or complaints. [] Review of Systems Review of Systems Review symptoms as per history of present illness. All other review symptoms are negative. All other systems were reviewed and found to be within normal limits, except as documented in this note. Allergies Allergies Allergies Coded Allergies Type Severity Reaction Last Updated Verified adhesive Allergy Mild bruising 08/14/17 Yes Physical Exam Physical Exam Constitutional: Well developed, well nourished, no acute distress, non-toxic appearance. [] HENT: Normocephalic, atraumatic, bilateral external ears normal, oropharynx moist, no oral exudates, nose normal. No voice hoarseness, trismus, or drooling. [] Eyes: PERRLA, EOMI, conjunctiva normal, no discharge. [] Neck: Normal range of motion, no tenderness. [] Cardiovascular:Heart rate regular rhythm, no murmur. [] Lungs & Thorax: Bilateral breath sounds clear to auscultation. [] Abdomen: Bowel sounds normal, soft, no tenderness. [] Skin: Warm, dry. [] Back: No tenderness. [] Extremities: No tenderness, no edema. [] Neurologic: Alert and oriented X 3, normal motor function, normal sensory function, no focal deficits noted. [] Psychologic: Affect normal, judgement normal, mood normal. [] Current Patient Data Vital Signs Vital Signs Date Time Temp Pulse Resp B/P (MAP) Pulse Ox O2 Delivery O2 Flow Rate FiO2 03/14/19 21:40 98.5 97 20 134/76 (95) 99 Room Air 98.5 EKG EKG [] Radiology/Procedures Radiology/Procedures [] Course & Med Decision Making Course & Med Decision Making Pertinent Labs and Imaging studies reviewed. (See chart for details) [Recommend PCP follow-up as needed. Return precautions reviewed.] Gwendolyn Disclaimer Gwendolyn Disclaimer This electronic medical record was generated, in whole or in part, using a voice recognition dictation system. Departure Departure Impression: Primary Impression: Pharyngitis Disposition: HOME, SELF-CARE Condition: GOOD Patient Instructions: Sore Throat, [id number] Additional Instructions: Please take ibuprofen for pain and antibiotics as directed. Take hydrocodone as needed for additional relief. Follow up with your PCP in 2-3 days for reevaluation if symptoms persist. Scripts Hydrocodone Bit/Acetaminophen (HYDROCODONE-APAP 5-325 ) 1 Tab Tablet 1 TAB PO PRN Q6HRS PRN for PAIN for 2 Days, #5 TAB 0 Refills Prov: LUPIS BROWN DO 03/14/19 Amoxicillin (AMOXICILLIN) 875 Mg Tablet 1 TAB PO BID, #20 TAB Prov: LUPIS BROWN DO 03/14/19 LUPIS BROWN DO Mar 14, 2019 22:55
== END 2019-03-14 22:07 | disposition home or self-care (01) ==
LOC: ER 21:38
DX: J02.9 Acute pharyngitis, unspecified (principal); R13.10 Dysphagia, unspecified; R05 Cough; J45.909 Unspecified asthma, uncomplicated; Z90.89 Acquired absence of other organs; Z88.8 Allergy status to other drugs, medicaments and biological substances
CPT/HCPCS: 99283

== ENCOUNTER → 2019-07-06 | Outpatient (CLI) | payer OTHER ==
[~2019-07-06] MED LIST changes: +AMOX875T PO; +HYDR-2761 PO
--- NOTE | 2019-07-06 16:06 | [facility] ---
EXAM: Supine AP view of the abdomen DATE: 07/06/2019 12:00 AM INDICATION: CT chest, constipation COMPARISON: No Prior FINDINGS: 8 Sitzmarks are seen in the rectum and and 16 Sitzmarks markers are seen within the splenic flexure and descending colon: Total 24 retained Sitzmarks. No abnormal small or large bowel dilatation. Large right colonic stool content is seen. No abnormal soft tissue mass effect. No suspicious calcifications are seen. Evaluation for free intraperitoneal gas is limited on this supine exam. IMPRESSION: 1. No evidence for bowel obstruction. 2. Total of 24 retained Sitzmarks. 3. Large volume stool content. Electronically signed by: Jeff Saez MD (07/06/2019 4:02 PM) [facility]
== END | disposition home or self-care (01) ==
LOC: KCIC 10:26
PROVIDERS: ATTEND Internal Medicine Gastroenterology
DX: K56.41 Fecal impaction (principal)
CPT/HCPCS: 74018

== ENCOUNTER → 2019-07-08 | Outpatient (CLI) | payer OTHER ==
--- NOTE | 2019-07-08 13:45 | KCIC ---
2 views of the abdomen 07/08/2019 INDICATION: Sitzmarks exam. Constipation COMPARISON STUDY: Abdominal radiographs July 06, 2019 Discussion: 21 radiopaque markers persists within the descending and rectosigmoid colon. This is in comparison to 24 retained markers on July 06, 2019. Stool is noted throughout the colon. The bowel gas pattern is nonobstructive. No gross pneumoperitoneum is identified. No acute osseous changes are seen. Postsurgical changes following cholecystectomy are again noted. IMPRESSION: 1. 21 markers within the descending and rectosigmoid colon 2. Persistent stool throughout the colon Electronically signed by: Joshua Muller MD (07/08/2019 1:42 PM) [id number]
== END | disposition home or self-care (01) ==
LOC: KCIC 11:38
PROVIDERS: ATTEND Internal Medicine Gastroenterology
DX: K59.00 Constipation, unspecified (principal); Z90.49 Acquired absence of other specified parts of digestive tract
CPT/HCPCS: 74018

== ENCOUNTER 2020-07-10 21:07 | Emergency (ER) | payer OTHER ==
[~2020-07-10] VITALS: Ht 165.1 cm; Wt 103.2 kg
[~2020-07-10 21:07] MED LIST changes: -RANI-348 PO; +RANI-369 PO
[2020-07-10 21:27] VITALS: BP 132/82
--- NOTE | 2020-07-10 22:59 | PHYS DOC ---
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 Patient states that she was at the [place] couple of days ago. After she got back from the [place] she noted that there was some bumps on her face. These have persisted now for the last 2 days and she is here for further treatment and evaluation. Patient denies any other complaints including chest pain, shortness of breath, fever or chills, rashes in other places of the body, nausea or vomiting or cough. Patient also states that the rashes itchy. She has tried no [id number] medications for it. Review of Systems: Review of Systems: Constitutional: Denies fever or chills. [] Respiratory: Denies cough or shortness of breath. [] Cardiovascular: Denies chest pain or edema. [] GI: Denies abdominal pain, nausea, vomiting, bloody stools or diarrhea. [] : Denies dysuria. [] Integument: Denies rash. [] Neurologic: Denies headache, focal weakness or sensory changes. [] [] Heart Score: Risk Factors: Risk Factors: DM, Current or recent (<one month) smoker, HTN, HLP, family history of CAD, obesity. Risk Scores: Score 0 - 3: 2.5% MACE over next 6 weeks - Discharge Home Score 4 - 6: 20.3% MACE over next 6 weeks - Admit for Clinical Observation Score 7 - 10: 72.7% MACE over next 6 weeks - Early Invasive Strategies Allergies: Allergies: Allergies Coded Allergies Type Severity Reaction Last Updated Verified adhesive Allergy Mild bruising 08/14/17 Yes Physical Exam: PE: Constitutional: Well developed, well nourished, no acute distress, non-toxic appearance. [] HENT: Normocephalic, atraumatic, bilateral external ears normal, oropharynx moist, no oral exudates, nose normal. [] Eyes: PERRLA, EOMI, conjunctiva normal, no discharge. [] [] Skin: Warm, dry, papular rash involving both sides of the face. No excoriations, fluctuant areas, erythema or calor is noted. [] [] Current Patient Data: Vital Signs: Vital Signs Date Time Temp Pulse Resp B/P (MAP) Pulse Ox O2 Delivery O2 Flow Rate FiO2 07/10/20 21:27 97.1 89 18 132/82 (99) 100 Room Air 97.1 EKG: EKG: [] Radiology/Procedures: Radiology/Procedures: [] Course & Med Decision Making: Course & Med Decision Making Pertinent Labs and Imaging studies reviewed. (See chart for details) [id number]-patient was seen and examined. I discussed reasons to return, treatment plan and need for follow-up. No evidence for an exigent medical or surgical problems identified. [] Dragon Disclaimer: Dragon Disclaimer: This electronic medical record was generated, in whole or in part, using a voice recognition dictation system. Departure Departure Impression: Primary Impression: Contact dermatitis Disposition: HOME, SELF-CARE Condition: STABLE Referrals: MINERVA DOAN MD (PCP) Patient Instructions: Contact Dermatitis Additional Instructions: Hydrocortisone cream 1% [id number] applied 3 times a day to the facial lesions mixed with Benadryl lotion also available [id number]. Justicifation of Admission Dx: Justifications for Admission: Justification of Admission Dx: N/A BRAN MELENDEZ MD Jul 10, 2020 22:59
== END 2020-07-10 23:01 | disposition home or self-care (01) ==
LOC: ER 21:07
DX: L25.9 Unspecified contact dermatitis, unspecified cause (principal); J45.909 Unspecified asthma, uncomplicated; Z90.49 Acquired absence of other specified parts of digestive tract; Z90.89 Acquired absence of other organs; Z98.890 Other specified postprocedural states; Z88.8 Allergy status to other drugs, medicaments and biological substances
CPT/HCPCS: 99282

== ENCOUNTER 2021-07-31 15:46 | Emergency (ER) | payer OTHER ==
[~2021-07-31] VITALS: Ht 165.1 cm; Wt 106.8 kg
[2021-07-31 16:04] VITALS: BP 134/84
[2021-07-31] MEDS ORDERED: IBUPROFEN 200 MG TABLET. PO ONE (16:45)
--- NOTE | 2021-07-31 17:46 | RAD ---
Exam: Left foot 3 views. Left ankle 3 views INDICATION: Bruising, pain after rolled ankle TECHNIQUE: Frontal, lateral and oblique views of the left foot and left ankle Comparisons: None FINDINGS: Foot: Bone mineralization is normal. No acute or healed fractures. Soft tissues are unremarkable. Joint spa greta are well-maintained. Ankle: Bone mineralization is normal. No acute or healed fractures. Soft tissues are unremarkable. Joint spa greta are well-maintained. IMPRESSION: No acute osseous abnormality of the left foot or left ankle Electronically signed by: Pearl Martin MD (07/31/2021 5:44 PM) [facility]
[2021-07-31] MEDS ORDERED: IBUP-1007 PO (18:01)
--- NOTE | 2021-07-31 18:02 | PHYS DOC ---
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 There is bruising and swelling 2+. Patient denies numbness or tingling, focal weakness. Patient rates a 5 out of 10 and states is aching. Review of Systems: Review of Systems: Constitutional: Denies fever or chills. [] Eyes: Denies change in visual acuity. [] HENT: Denies nasal congestion or sore throat. [] Respiratory: Denies cough or shortness of breath. [] Cardiovascular: Denies chest pain or + left foot and ankle edema. [] GI: Denies abdominal pain, nausea, vomiting, bloody stools or diarrhea. [] : Denies dysuria. [] Musculoskeletal: Denies back pain or + left foot medial joint pain, +left medial ankle. [] Integument: Denies rash. + Left foot and ankle bruising [] Neurologic: Denies headache, focal weakness or sensory changes. [] Endocrine: Denies polyuria or polydipsia. [] Lymphatic: Denies swollen glands. [] Psychiatric: Denies depression or anxiety. [] Heart Score: C/O Chest Pain: No Risk Factors: Risk Factors: DM, Current or recent (<one month) smoker, HTN, HLP, family history of CAD, obesity. Risk Scores: Score 0 - 3: 2.5% MACE over next 6 weeks - Discharge Home Score 4 - 6: 20.3% MACE over next 6 weeks - Admit for Clinical Observation Score 7 - 10: 72.7% MACE over next 6 weeks - Early Invasive Strategies Current Medications: Current Medications Medications (Trade) Dose Ordered Sig/Maggy Start Time Stop Time Status Last Admin Dose Admin Ibuprofen (Motrin) 600 mg 1X ONCE 07/31/21 16:45 07/31/21 16:46 DC 07/31/21 16:49 600 MG Allergies: Allergies: Allergies Coded Allergies Type Severity Reaction Last Updated Verified Penicillins Allergy Mild yeast 07/31/21 Yes adhesive Allergy Mild bruising 08/14/17 Yes Physical Exam: PE: Constitutional: Well developed, well nourished, no acute distress, non-toxic appearance. [] HENT: Normocephalic, atraumatic, bilateral external ears normal, oropharynx moist, no oral exudates, nose normal. [] Eyes: PERRLA, EOMI, conjunctiva normal, no discharge. [] Neck: Normal range of motion, no tenderness, supple, no stridor. [] Cardiovascular:Heart rate regular rhythm, no murmur [] Lungs & Thorax: Bilateral breath sounds clear to auscultation [] Abdomen: Bowel sounds normal, soft, no tenderness, no masses, no pulsatile masses. [] Skin: Warm, dry, no erythema, no rash. Left medial foot and ankle bruising [] Back: No tenderness, no CVA tenderness. [] Extremities: Left medial foot and ankle tenderness, no cyanosis, no clubbing, ROM intact but limited due to pain, 2+ edema. [] Neurologic: Alert and oriented X 3, normal motor function, normal sensory function, no focal deficits noted. [] Psychologic: Affect normal, judgement normal, mood normal. [] Current Patient Data: Vital Signs: Vital Signs Date Time Temp Pulse Resp B/P (MAP) Pulse Ox O2 Delivery O2 Flow Rate FiO2 07/31/21 16:04 98.1 91 18 134/84 (99) 100 Room Air 98.1 EKG: EKG: [] Radiology/Procedures: Radiology/Procedures: [] Impression: [facility] [address] [place] [address] IMAGING REPORT Signed PATIENT: JOSH DELUNA ACCOUNT: [id number] : 1985 LOCATION: ER AGE: 36 SEX: F EXAM STATUS: REG ER ORD. PHYSICIAN: RANJANA DOBBINS APRN REASON: bruising, pain after rolling ankle PROCEDURE: ANKLE LEFT 3V Exam: Left foot 3 views. Left ankle 3 views INDICATION: Bruising, pain after rolled ankle TECHNIQUE: Frontal, lateral and oblique views of the left foot and left ankle Comparisons: None FINDINGS: Foot: Bone mineralization is normal. No acute or healed fractures. Soft tissues are unremarkable. Joint spaces are well-maintained. Ankle: Bone mineralization is normal. No acute or healed fractures. Soft tissues are unremarkable. Joint spaces are well-maintained. IMPRESSION: No acute osseous abnormality of the left foot or left ankle Electronically signed by: Pearl Caballero MD (07/31/2021 5:44 PM) [facility] DICTATED and SIGNED BY: PEARL CABALLERO MD DATE: 07/31/21 [id number] 0 Course & Med Decision Making: Course & Med Decision Making Pertinent Labs and Imaging studies reviewed. (See chart for details) See HPI. Alert and oriented x4. Ambulatory steady gait. Speaks in full sentences. Left lateral foot and ankle bruising with 2+ swelling and tenderness. Limited range of motion due to pain and swelling. She can wiggle her toes. Pedal pulse is strong are present. Skin pink warm and dry. Cap refill less than 2 seconds. Patient is put in a walking boot and given cru tches. She is to follow-up with orthopedics. [] Gwendolyn Disclaimer: Gwendolyn Disclaimer: This electronic medical record was generated, in whole or in part, using a voice recognition dictation system. Departure Departure Impression: Primary Impression: Ankle sprain Qualified Codes: S93.402A - Sprain of unspecified ligament of left ankle, initial encounter Additional Impression: Sprain of foot, left Qualified Codes: S93.602A - Unspecified sprain of left foot, initial encounter Disposition: HOME / SELF CARE / HOMELESS Condition: STABLE Referrals: EMA JONES APRN (PCP) CRYSTAL REAL MD Patient Instructions: Ankle Sprain, Foot Sprain Additional Instructions: Follow-up with orthopedic as soon as possible. Use ice and elevation to help with pain and swelling. Take ibuprofen 600 mg every 6 hours or 800 mg every 8 hours with food for pain and swelling also. Scripts Ibuprofen (IBUPROFEN) 600 Mg Tablet 600 MG PO PRN Q6HRS PRN for INFLAMMATION, #20 TAB Prov: RANJANA DOBBINS APRN 07/31/21 RANJANA DOBBINS APRN Jul 31, 2021 18:02
== END 2021-07-31 18:50 | disposition home or self-care (01) ==
LOC: ER 15:46
DX: S90.02XA Contusion of left ankle, initial encounter (principal); J45.909 Unspecified asthma, uncomplicated; Z88.0 Allergy status to penicillin; Z88.8 Allergy status to other drugs, medicaments and biological substances; X50.9XXA Other and unspecified overexertion or strenuous movements or postures, initial encounter; Y93.89 Activity, other specified; Y92.89 Other specified places as the place of occurrence of the external cause; Y99.8 Other external cause status
CPT/HCPCS: 73610; 73630; 99284

== ENCOUNTER 2021-11-17 18:39 | Emergency (ER) | payer OTHER ==
[~2021-11-17] VITALS: Ht 165.1 cm; Wt 230.0 kg
[~2021-11-17 18:39] MED LIST changes: +IBUP-1007 PO
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
[2021-11-17 20:15] VITALS: BP 141/71
[2021-11-17] MEDS ORDERED: IBUPROFEN 400 MG TABLET. PO ONE (20:15)
[2021-11-17] MEDS ORDERED: HYDR-2761 PO (20:16)
== END 2021-11-17 20:28 | disposition home or self-care (01) ==
LOC: ER 18:39
DX: T23.131A Burn of first degree of multiple right fingers (nail), not including thumb, initial encounter (principal); J45.909 Unspecified asthma, uncomplicated; Z88.0 Allergy status to penicillin; Z88.8 Allergy status to other drugs, medicaments and biological substances; X19.XXXA Contact with other heat and hot substances, initial encounter; Y93.89 Activity, other specified; Y92.89 Other specified places as the place of occurrence of the external cause; Y99.8 Other external cause status
CPT/HCPCS: 99283

== ENCOUNTER 2021-12-06 00:16 | Emergency (ER) | payer OTHER ==
[~2021-12-06] VITALS: Ht 165.1 cm; Wt 106.8 kg
[2021-12-06] MEDS ORDERED: DEXAMETHASONE 4 MG TABLET PO ONE (01:30)
[2021-12-06] MEDS ORDERED: ONDANSETRON ODT 4 MG TAB.RAPDIS. PO ONE (02:00)
[2021-12-06] MEDS ORDERED: KETOROLAC 30 MG/ML VIAL. IM ONE (02:00)
[2021-12-06] MEDS ORDERED: ONDA4TAB12 PO (02:14)
[2021-12-06] MEDS ORDERED: AZIT250T PO (02:14)
--- NOTE | 2021-12-06 02:15 | PHYS DOC ---
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 [] Eyes: Denies change in visual acuity. [] HENT: Denies nasal congestion or sore throat. [] Respiratory: Denies cough or shortness of breath. [] Cardiovascular: Denies chest pain or edema. [] GI: Denies abdominal pain, nausea, vomiting, bloody stools or diarrhea. [] : Denies dysuria. [] Musculoskeletal: Denies back pain or joint pain. [] Integument: Denies rash. [] Neurologic: Denies headache, focal weakness or sensory changes. [] Endocrine: Denies polyuria or polydipsia. [] Lymphatic: Denies swollen glands. [] Psychiatric: Denies depression or anxiety. [] Heart Score: Risk Factors: Risk Factors: DM, Current or recent (<one month) smoker, HTN, HLP, family history of CAD, obesity. Risk Scores: Score 0 - 3: 2.5% MACE over next 6 weeks - Discharge Home Score 4 - 6: 20.3% MACE over next 6 weeks - Admit for Clinical Observation Score 7 - 10: 72.7% MACE over next 6 weeks - Early Invasive Strategies Current Medications: Current Medications Medications (Trade) Dose Ordered Sig/Maggy Start Time Stop Time Status Last Admin Dose Admin Dexamethasone (Decadron) 10 mg 1X ONCE 12/06/21 01:30 12/06/21 01:35 DC 12/06/21 02:02 10 MG Ketorolac Tromethamine (Toradol 30mg Vial) 30 mg 1X ONCE 12/06/21 02:00 12/06/21 02:01 DC 12/06/21 02:04 30 MG Ondansetron HCl (Zofran Odt) 4 mg 1X ONCE 12/06/21 02:00 12/06/21 02:01 DC 12/06/21 02:03 4 MG Allergies: Allergies: Allergies Coded Allergies Type Severity Reaction Last Updated Verified Penicillins Allergy Mild yeast 07/31/21 Yes adhesive Allergy Mild bruising 08/14/17 Yes Physical Exam: PE: Constitutional: Well developed, well nourished, no acute distress, non-toxic appearance. [] HENT: Normocephalic, atraumatic, bilateral external ears normal, oropharynx moist, no oral exudates, nose normal. [] Eyes: PERRLA, EOMI, conjunctiva normal, no discharge. [] Neck: Normal range of motion, no tenderness, supple, no stridor. [] Cardiovascular:Heart rate regular rhythm, no murmur [] Lungs & Thorax: Bilateral breath sounds clear to auscultation [] Abdomen: Bowel sounds normal, soft, no tenderness, no masses, no pulsatile masses. [] Skin: Warm, dry, no erythema, no rash. [] Back: No tenderness, no CVA tenderness. [] Extremities: No tenderness, no cyanosis, no clubbing, ROM intact, no edema. [] Neurologic: Alert and oriented X 3, normal motor function, normal sensory function, no focal deficits noted. [] Psychologic: Affect normal, judgement normal, mood normal. [] Current Patient Data: Vital Signs: Vital Signs Date Time Temp Pulse Resp B/P (MAP) Pulse Ox O2 Delivery O2 Flow Rate FiO2 12/06/21 01:25 98.6 89 17 115/71 (86) 100 Room Air 98.6 EKG: EKG: [] Radiology/Procedures: Radiology/Procedures: [] Course & Med Decision Making: Course & Med Decision Making Pertinent Labs and Imaging studies reviewed. (See chart for details) [] Dragon Disclaimer: Dragon Disclaimer: This electronic medical record was generated, in whole or in part, using a voice recognition dictation system. Departure Departure Impression: Primary Impression: Viral syndrome Additional Impressions: Suspected 2019 novel coronavirus infection Pneumonia Qualified Codes: J18.9 - Pneumonia, unspecified organism Disposition: HOME / SELF CARE / HOMELESS Condition: STABLE Referrals: HUNTER ANGELES MD (PCP) Patient Instructions: Pneumonia, Adult, [id number], Viral Syndrome Additional Instructions: You have been tested for or diagnosed with COVID-19. It is an infection caused by a new type of coronavirus. COVID-19 will cause cold-like or mild flu symptoms in most. It can cause more severe symptoms like problems breathing in some. There is no treatment for COVID-19. The body will clear the infection over time. Self-care will help to ease discomfort. Steps to Take: Self-Care Rest as needed. Healthy habits may help you feel better. Steps include: Choose healthy foods including fruits and vegetables. Drink water throughout the day. Get plenty of sleep each night. If you smoke, try to quit. It may ease breathing. Avoid alcohol. Keep Others Healthy The virus can spread to others. Droplets are released every time you sneeze or cough. The droplets can get into the mouth, nose, or eyes of people near you and lead to infection. To lower the chances of spreading COVID-19 to others: Stay at home until your doctor has said it is safe to leave. If you tested positive this will mean staying isolated until both of the following are true: At least 7 days have passed since the start of illness. You are free of fever for at least 72 hours without the use of medicine. During this time: - Avoid public areas, events, or transportation. Do not return to work or school until your doctor has said it is safe to do so. - Call ahead if you need to go to a medical center. Let them know you may have COVID-19. It will help them guide you where to go. They may also ask you to wear a facemask when you come to the office. - If you call for emergency medical services, let them know you may have COVID- 19. While at home: - Try to avoid close contact with others. Stay about 6 feet away. - If possible, spend most of your time in a separate room from others. - Use a face mask if you will be in close contact with others such as sharing a room or vehicle. - Have someone wipe down common surfaces in the home. Use household leather sponger e very day on areas like doorknobs, counters, or sinks. - Cough or sneeze into a tissue. Throw the tissue away right after use. If a tissue is not available, cough or sneeze into your elbow. - Wash your hands often. Wash them after sneezing or coughing. Use soap and water and wash for at least 20 seconds. Alcohol based hand stone cleaner can be used if soap and water is not available. - Do not prepare food for others. Avoid sharing personal items like forks, spoons, or toothbrushes. - Avoid close contact with pets while you are sick. There is no evidence of the virus passing to pets. This is a safety step until more is known about this virus. Isolation can be frustrating. Social interaction can help. Keep in touch with friends and family through phone and tech options. You can still interact with others in your home, just keep a safe distance of about 6 feet. Follow-up: Your doctors office will check in with you to see if there are any changes in your health. You may be asked to keep track of symptoms to share with them. They will also let you know when you are clear to be in public again. Problems to Look Out For: Contact your doctor if your recovery is not going as you expect. Get emergency care if you have problems such as: - Trouble breathing - Nonstop chest pain or pressure - Changes in awareness, confusion, or problems waking - Lips or face have bluish color - Worsening of symptoms If you think you have an emergency, call for emergency medical services right away. As taken from [facility] Scripts Azithromycin (ZITHROMAX) 250 Mg Tablet 1 PKG PO UD for pneumonia, #6 TAB Take 2 tablets on day 1 and then 1 tablet each day for the next 4 days as directed Prov: ALBERTA HUNT DO 12/06/21 Ondansetron (ONDANSETRON ODT) 4 Mg Tab.rapdis 1 TAB PO PRN Q6-8HRS PRN for NAUSEA, #16 TAB Prov: ALBERTA HUNT DO 12/06/21 ALBERTA HUNT DO Dec 06, 2021 02:14
[2021-12-06 02:26] VITALS: BP 113/77
--- NOTE | 2021-12-06 02:34 | RAD ---
XR CHEST 1V History: Reason: cough / Spl. Instructions: / History: Comparison: April 18, 2017 Findings: Mild multifocal opacities bilaterally. No pleural effusion. No pneumothorax. Normal heart size. Impression: 1. Mild multifocal ill-defined opacities bilaterally, can be seen with pneumonia including viral pne umonia. Electronically signed by: Henrique Dunbar DO (12/06/2021 2:32 AM) [facility]
--- NOTE | 2021-12-06 16:18 | NUR ---
IP: Informed pt of positive covid test and the need to quarantine 10 days. Pt verbalized understanding.
== END 2021-12-06 02:30 | disposition home or self-care (01) ==
LOC: ER 00:16
DX: U07.1 COVID-19 (principal); J18.9 Pneumonia, unspecified organism; J45.909 Unspecified asthma, uncomplicated; Z88.0 Allergy status to penicillin; Z88.8 Allergy status to other drugs, medicaments and biological substances
CPT/HCPCS: 71045; 96372; 99284; J1885; U0003; U0005

== ENCOUNTER 2021-12-08 07:20 | Emergency (ER) | payer OTHER ==
[~2021-12-08] VITALS: Ht 165.1 cm; Wt 95.5 kg
[~2021-12-08 07:20] MED LIST changes: +AZIT250T PO; +ONDA4TAB12 PO
[2021-12-08] MEDS ORDERED: IPRATRPIUM/ALBUTEROL 0.5/2.5MG 3 ML NEBU. NEB ONE (07:45)
--- NOTE | 2021-12-08 07:50 | PHYS DOC ---
Past Medical History Past Medical History: Asthma Additional Past Medical Histor: pseudo tumor ceribri, BEHCETS DISEASE Past Surgical History: Cholecystectomy, Tonsillectomy Additional Past Surgical Histo: Adnoidectomy, 2 throat cysts removed,myringotomy Smoking Status: Never Smoker Alcohol Use: Occasionally Drug Use: None General Adult EDM: Chief Complaint: SHORTNESS OF BREATH HPI: HPI: Patient is a 36 year old female with history of asthma and recent positive COVID test on 12/06 who presents with worsening shortness of breath. Patient states she has had 2 weeks of symptoms which include cough, congestion, fever/chills, and shortness of breath. Was seen in this emergency department on 12/06 and had a chest x-ray showing multifocal pneumonia along with positive COVID test. Was placed on azithromycin and discharged. Patient states she received a single dose of prednisone while in the emergency department, but was not discharged on a prescription. She states a few hours after leaving the emergency department she felt that her breathing has worsened and has not improved since. She complains of substernal chest pain. Dull in nature. Does not radiate.+ Pleuritic. No lower extremity edema. No recent surgeries, immobilizations. No estrogen containing medications. Not a smoker. No history of DVT/PE. Not on any blood thinners. Review of Systems: Review of Systems: Constitutional: Denies fever or chills. [] Eyes: Denies change in visual acuity. [] HENT: Reports nasal congestion, runny nose. Respiratory: Reports cough and shortness of breath Cardiovascular: Reports chest pain. Denies lower extremity edema. GI: Denies abdominal pain : Denies dysuria. [] Integument: Denies rash. [] Neurologic: Denies headache, focal weakness or sensory changes. [] Psychiatric: Denies depression or anxiety. [] Heart Score: C/O Chest Pain: Yes HEART Score for Chest Pain: HEART Score for Chest Pain Response (Comments) Value History Slighlty/Non-Suspicious 0 Age < 45 0 Risk Factors No Risk Factors 0 Total 0 Risk Factors: Risk Factors: DM, Current or recent (<one month) smoker, HTN, HLP, family history of CAD, obesity. Risk Scores: Score 0 - 3: 2.5% MACE over next 6 weeks - Discharge Home Score 4 - 6: 20.3% MACE over next 6 weeks - Admit for Clinical Observation Score 7 - 10: 72.7% MACE over next 6 weeks - Early Invasive Strategies Allergies: Allergies: Allergies Coded Allergies Type Severity Reaction Last Updated Verified Penicillins Allergy Mild yeast 07/31/21 Yes adhesive Allergy Mild bruising 08/14/17 Yes Physical Exam: PE: Constitutional: Well developed, well nourished, no acute distress, non-toxic appearance. [] Neck: Normal range of motion, no tenderness, supple, no stridor. [] Cardiovascular tachycardic, regular Lungs & Thorax: Limited air entry bilaterally. No appreciated wheezes or crackles. Tachypnea with evidence of mild accessory muscle usage. Abdomen: Soft, nontender Skin: Warm, dry, no erythema, no rash. [] Extremities: No tenderness, no cyanosis, no clubbing, ROM intact, no edema. [] Neurologic: Alert and oriented X 3, normal motor function, normal sensory function, no focal deficits noted. [] Psychologic: Affect normal, judgement normal, mood normal. [] Current Patient Data: Vital Signs: Vital Signs Date Time Temp Pulse Resp B/P (MAP) Pulse Ox O2 Delivery O2 Flow Rate FiO2 12/08/21 07:30 99.0 101 22 117/55 (75 95 Room Air 99.0 EKG: EKG: Sinus rhythm. Rate ninety-two. Normal axis. Normal intervals. No acute ischemic changes. No pericarditis changes.[] Radiology/Procedures: Radiology/Procedures: [] Impression: [facility] [address] [place], [place] [id number] IMAGING REPORT Signed PATIENT: JOSH DELUNA ACCOUNT: [id number] : 1985 LOCATION: ER AGE: 36 SEX: F EXAM STATUS: REG ER ORD. PHYSICIAN: HUSSAIN MARCELO MD REASON: DIMER +, SOB, CHEST PAIN, covid + PROCEDURE: CT ANGIOGRAPHY CHEST EXAM: CT angiography of the chest with intravenous contrast. HISTORY: Elevated d-dimer. Shortness of breath. Covid 19. Chest pain. TECHNIQUE: Computed tomographic images of the chest were obtained following the administration of intravenous contrast according to angiography protocol. Multiplanar reformatting was performed and three dimensional maximum intensity projection images were obtained. *One or more of the following individualized dose reduction techniques were utilized for this examination: 1. Automated exposure control. 2. Adjustment of the mA and/or kV according to patient size. 3. Use of iterative reconstruction technique. COMPARISON: None. FINDINGS: Evaluation for distal pulmonary emboli is limited due to respiratory motion. No central embolism is seen. The heart is normal in size. There is no ev idence of right heart strain. There is no evidence of aortic aneurysm or dissection. There is a prominent thyroid. No discrete nodule is seen. There are prominent bilateral hilar lymph nodes. There is no pneumothorax. There is no pleural effusion. There is multifocal interstitial and alveolar infiltrate and partially consolidated right lower lobe infiltrate. The spleen is upper normal in size. The gallbladder is absent. There is no acute or suspicious osseous finding. IMPRESSION: 1. Limited exam for distal pulmonary emboli due to respiratory motion. No central embolism is seen. 2. Bilateral multifocal pneumonia with partial right lower lobe consolidation. Follow-up to confirm resolution. 3. Suspected reactive hilar lymphadenopathy. Electronically signed by: Trina Partida MD (12/08/2021 11:22 AM) [id number] DICTATED and SIGNED BY: TRINA PATRIDA MD DATE: 12/08/21 [id number] Course & Med Decision Making: Course & Med Decision Making Pertinent Labs and Imaging studies reviewed. (See chart for details) Patient 36-year-old female who presents with increasing shortness of breath and pleuritic chest pain in the setting of known COVID-19. Tested positive on 12/06, but had preceding symptoms for approximately 2 weeks prior. On arrival is satting 95+ percent on room air, mildly tachycardic ~105, BP stable. CXR on previous visit showed multifocal pneumonia consistent with COVID-19. Was placed on azithromycin at previous visit. Dimer was positive. CTA was negative for PE, but redemonstrated multifocal pneumonia. Fortunately the patient is stable from a respiratory standpoint, and I feel she can be discharged safely with return precautions. [id number] Gwendolyn Disclaimer: Gwendolyn Disclaimer: This electronic medical record was generated, in whole or in part, using a voice recognition dictation system. Departure Departure Impression: Primary Impression: Pneumonia due to COVID-19 virus Additional Impression: Pleuritic chest pain Disposition: HOME / SELF CARE / HOMELESS Condition: STABLE Referrals: HUNTER ANGELES MD (PCP) Call Dr. Angeles's office to see if you qualify for any special treatments for your COVID infection. Additional Instructions: You have Covid. Your CT scan did not show a blood clot in your lungs. It did show a pneumonia from your COVID. You can continue to take the azithromycin prescribed to you previously, but it may not help as this appears to be a viral pneumonia. You can call Dr. Angeles's office to see if you qualify for any treatments such as monoclonal antibodies or antiviral medications. Isolation: -At the 10-day grupo (or 5-day grupo with a negative COVID test), you must also have at least 24 hours of no fever/chills, and improving symptoms before you end your isolation. -If you are continuing to be symptomatic or having high fevers you need to continue your isolation until you meet the above requirements. Monitoring: -Please buy a home pulse oximeter. These can be purchased [id number] most pharmacies, or on [employer]. -Check your oxygen levels once a day. If they are persistently below 90% please return to the emergency department. -If you develop chest pain or worsening shortness of breath please return to the emergency department. For fever/body aches tylenol and ibuprofen are best used on a schedule. Please alternate between the two. -Tylenol 1000 mg every 6 hours (do not exceed 4000 mg in one day) -Ibuprofen 400-600 mg every 6 hours. Take with food. Do not take for more than 1 week. HUSSAIN MARCELO MD Dec 08, 2021 07:50
[2021-12-08] MEDS ORDERED: ACETAMINOPHEN 500 MG TABLET PO ONE (08:15)
[2021-12-08 08:25] LABS: CREATININE 1.1 mg/dL (0.6-1.0); GFR 68.4; POTASSIUM 3.9 mmol/L (3.5-5.1)
[2021-12-08 08:30] LABS: BASO % 0 % (0-3); EOS % 0 % (0-3); HEMATOCRIT 39.1 % (36.0-47.0); HEMOGLOBIN 12.5 g/dL (12.0-15.5); LYMPH # 0.8 x10^3/uL (1.0-4.8); LYMPH % 13 % (24-48); MEAN CORPUSCULAR HEMOGLOBIN 27 pg (25-35); MEAN CORPUSCULAR HGB CONC 32 g/dL (31-37); MEAN CORPUSCULAR VOLUME 85 fL (79-100); MONO # 0.5 x10^3/uL (0.0-1.1); MONO % 7 % (0-9); NEUT # 5.1 x10^3/uL (1.8-7.7); NEUT % 80 % (31-73); PLATELET COUNT 179 x10^3/uL (140-400); RED BLOOD COUNT 4.61 x10^6/uL (3.50-5.40); RED CELL DISTRIBUTION WIDTH 13.4 % (11.5-14.5); WHITE BLOOD COUNT 6.4 x10^3/uL (4.0-11.0)
[2021-12-08] MEDS ORDERED: IV NORMAL SALINE 1000ML BAG 1,000 ML IV ONE (08:45)
[2021-12-08] MEDS ORDERED: ONDANSETRON PF 4 MG/2 ML VIAL. IVP ONE (09:00)
[2021-12-08] MEDS ORDERED: IBUPROFEN 200 MG TABLET. PO ONE (09:30)
[2021-12-08] MEDS ORDERED: IOHEXOL 350 MG/ML 100 ML VIAL. IV ONE (09:30)
[2021-12-08] MEDS ORDERED: CONTRAST GIVEN. MC PRN (09:45)
--- NOTE | 2021-12-08 11:24 | RAD ---
EXAM: CT angiography of the chest with intravenous contrast. HISTORY: Elevated d-dimer. Shortness of breath. Covid 19. Chest pain. TECHNIQUE: Computed tomographic images of the chest were obtained following the administration of int ravenous contrast according to angiography protocol. Multiplanar reformatting was performed and three dimensional maximum intensity projection images were obtained. *One or more of the following individualized dose reduction techniques were utilized for this examina tion: 1. Automated exposure control. 2. Adjustment of the mA and/or kV according to patient size. 3. Use of iterative reconstruction technique. COMPARISON: None. FINDINGS: Evaluation for distal pulmonary emboli is limited due to respiratory motion. No central emb olism is seen. The heart is normal in size. There is no evidence of right heart strain. There is no e vidence of aortic aneurysm or dissection. There is a prominent thyroid. No discrete nodule is seen. T here are prominent bilateral hilar lymph nodes. There is no pneumothorax. There is no pleural effusio n. There is multifocal interstitial and alveolar infiltrate and partially consolidated right lower lobe infiltrate. The spleen is upper normal in size. The gallbladder is absent. There is no acute or suspi cious osseous finding. IMPRESSION: 1. Limited exam for distal pulmonary emboli due to respiratory motion. No central embolism is seen. 2. Bilateral multifocal pneumonia with partial right lower lobe consolidation. Follow-up to confirm r esolution. 3. Suspected reactive hilar lymphadenopathy. Electronically signed by: Trina Esposito MD (12/08/2021 11:22 AM) [id number]
[2021-12-08] MEDS ORDERED: ALBUTEROL SULFATE 2.5 MG/3 ML NEBU. NEB ONE (11:45)
[2021-12-08 12:01] VITALS: BP 100/52
--- NOTE | 2021-12-08 13:48 | EKG ---
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
[2021-12-08] MEDS ORDERED: FLUO40CA2 PO (22:48)
[2021-12-08] MEDS ORDERED: QUET100T4 PO (22:48)
[2021-12-08] MEDS ORDERED: BUDE180A IH (22:48)
== END 2021-12-08 12:13 | disposition home or self-care (01) ==
LOC: ER 07:20
DX: U07.1 COVID-19 (principal); J12.82 Pneumonia due to coronavirus disease 2019; R07.81 Pleurodynia; J45.909 Unspecified asthma, uncomplicated; Z88.0 Allergy status to penicillin; Z88.8 Allergy status to other drugs, medicaments and biological substances
CPT/HCPCS: 36415; 71275; 80048; 85025; 85379; 93005; 94640; 96361; 96374; 99285; J2405; J7030; J7613; Q9967

== ENCOUNTER 2021-12-08 18:52 | Inpatient (IN) | payer OTHER ==
[~2021-12-08] VITALS: Ht 165.1 cm; Wt 115.9 kg
[2021-12-08] MEDS ORDERED: DEXAMETHASONE SOD PHOS 4 MG/ML VIAL IVP ONE (19:15)
[2021-12-08 19:29] LABS: BASO % 0 % (0-3); EOS % 0 % (0-3); HEMATOCRIT 40.1 % (36.0-47.0); LYMPH # 0.7 x10^3/uL (1.0-4.8); LYMPH % 10 % (24-48); MEAN CORPUSCULAR HEMOGLOBIN 27 pg (25-35); MEAN CORPUSCULAR HGB CONC 33 g/dL (31-37); MEAN CORPUSCULAR VOLUME 85 fL (79-100); MONO # 0.4 x10^3/uL (0.0-1.1); MONO % 5 % (0-9); NEUT # 6.1 x10^3/uL (1.8-7.7); NEUT % 85 % (31-73); PLATELET COUNT 190 x10^3/uL (140-400); RED BLOOD COUNT 4.74 x10^6/uL (3.50-5.40); RED CELL DISTRIBUTION WIDTH 13.7 % (11.5-14.5); WHITE BLOOD COUNT 7.2 x10^3/uL (4.0-11.0)
[2021-12-08 19:37] LABS: CALCIUM 7.5 mg/dL (8.5-10.1); CREATININE 1.2 mg/dL (0.6-1.0); GFR 61.9; POTASSIUM 3.2 mmol/L (3.5-5.1)
[2021-12-08 19:42] LABS: ALBUMIN 2.8 g/dL (3.4-5.0); ALBUMIN/GLOBULIN RATIO 0.7 (1.0-1.7); TOTAL BILIRUBIN 0.2 mg/dL (0.2-1.0); TOTAL PROTEIN 6.6 g/dL (6.4-8.2)
[2021-12-08 19:56] LABS: BASE EXCESS ABG 0 mmol/L (-3-3); HCO3 ABG 22 mmol/L (21-28); PCO2 ABG 30 mmHg (35-46); PO2 ABG 53 mmHg (85-108); SAT O2 ABG 89 % (92-99)
[2021-12-08 19:58] LABS: FIO2 ABG 21
[2021-12-08] MEDS ORDERED: STERILE WATER for RESP 2,000 ML BAG. INH PRN (20:30)
[2021-12-08] MEDS ORDERED: IV NORMAL SALINE 1000ML BAG 1,000 ML IV ONE (20:30)
--- NOTE | 2021-12-08 20:41 | PHYS DOC ---
Past Medical History Past Medical History: Asthma Additional Past Medical Histor: pseudo tumor ceribri, BEHCETS DISEASE Past Surgical History: Cholecystectomy, Tonsillectomy Additional Past Surgical Histo: Adnoidectomy, 2 throat cysts removed,myringotomy Smoking Status: Never Smoker Alcohol Use: None Drug Use: None Adult General Chief Complaint Chief Complaint: SHORTNESS OF BREATH HPI HPI The patient is a 36-year-old unvaccinated female with a history of asthma and Behcet's disease. She is COVID-positive and has had about 10 days of symptoms. She presented to the emergency department earlier today for evaluation of progressive shortness of breath and dyspnea with minimal exertion. Large cardiorespiratory work-up earlier today was without evidence of acute process aside from COVID pneumonitis/pneumonia bilaterally seen on CT angiography of the chest. She was not hypoxic and was able to be discharged home. Patient returns via EMS for evaluation of worsening shortness of breath/dyspnea with minimal exertion. She is quite tachypneic but is maintaining saturation in the mid 90s on room air. Vital signs are otherwise appropriate here. Review of Systems Review of Systems A 12 point review of systems was completed and was negative except where noted in HPI above. Current Medications Current Medications Current Medications Medications (Trade) Dose Ordered Sig/Maggy Start Time Stop Time Status Last Admin Dose Admin Dexamethasone Sodium Phosphate (Decadron) 6 mg 1X ONCE 12/08/21 19:15 12/08/21 19:16 DC 12/08/21 19:40 6 MG Sodium Chloride 1,000 ml @ 1,000 mls/hr 1X ONCE 12/08/21 20:30 12/08/21 21:29 12/08/21 20:23 1,000 MLS/HR Sterile Water (WATER for RESP) 2,000 ml CONT PRN 12/08/21 20:30 12/08/21 20:14 2,000 ML Allergies Allergies Allergies Coded Allergies Type Severity Reaction Last Updated Verified Penicillins Allergy Mild yeast 07/31/21 Yes adhesive Allergy Mild bruising 08/14/17 Yes morphine Allergy Unknown 12/08/21 Yes Physical Exam Physical Exam 36-year-old female appearing nontoxic and in no acute distress. She appears anxious and is tachypneic. Head is normocephalic and atraumatic. Neck is supple and nontender. Oropharynx is moist. Lungs are clear to auscultation at all stations. There is a normal S1 and S2 without rubs or gallops and capillary refill is appropriate, less than 2 seconds globally. Abdomen is soft, nontender and nondistended. Skin is warm and dry without cyanosis, clubbing or edema. Psychiatrically, the patient demonstrates appropriate mood and affect and is alert. Evaluation of the extremities reveals BUEs and BLEs neurovascularly intact distally with strength 5 out of 5, sensation intact light touch in all nerve distributions, radial, DP and PT pulses 2+ and equal bilaterally, capillary refill less than 2 seconds, hands and feet warm and well-perfused. No dependent peripheral edema distally. No calf tenderness or swelling bilaterally. Homans test is negative bilaterally. Current Patient Data Vital Signs Vital Signs Date Time Temp Pulse Resp B/P (MAP) Pulse Ox O2 Delivery O2 Flow Rate FiO2 12/08/21 20:14 100 vapotherm 15.0 12/08/21 19:24 108 36 128/81 (97) 12/08/21 18:55 98.5 98.5 Lab Values Laboratory Tests Test 12/08/21 19:15 12/08/21 19:45 White Blood Count 7.2 x10^3/uL (4.0-11.0) Red Blood Count 4.74 x10^6/uL (3.50-5.40) Hemoglobin 13.0 g/dL (12.0-15.5) Hematocrit 40.1 % (36.0-47.0) Mean Corpuscular Volume 85 fL (79-100) Mean Corpuscular Hemoglobin 27 pg (25-35) Mean Corpuscular Hemoglobin Concent 33 g/dL (31-37) Red Cell Distribution Width 13.7 % (11.5-14.5) Platelet Count 190 x10^3/uL (140-400) Neutrophils (%) (Auto) 85 % (31-73) H Lymphocytes (%) (Auto) 10 % (24-48) L Monocytes (%) (Auto) 5 % (0-9) Eosinophils (%) (Auto) 0 % (0-3) Basophils (%) (Auto) 0 % (0-3) Neutrophils # (Auto) 6.1 x10^3/uL (1.8-7.7) Lymphocytes # (Auto) 0.7 x10^3/uL (1.0-4.8) L Monocytes # (Auto) 0.4 x10^3/uL (0.0-1.1) Eosinophils # (Auto) 0.0 x10^3/uL (0.0-0.7) Basophils # (Auto) 0.0 x10^3/uL (0.0-0.2) Sodium Level 141 mmol/L (136-145) Potassium Level 3.2 mmol/L (3.5-5.1) L Chloride Level 105 mmol/L (98-107) Carbon Dioxide Level 25 mmol/L (21-32) Anion Gap 11 (6-14) Blood Urea Nitrogen 7 mg/dL (7-20) Creatinine 1.2 mg/dL (0.6-1.0) H Estimated GFR (Cockcroft-Gault) 61.9 BUN/Creatinine Ratio 6 (6-20) Glucose Level 111 mg/dL (70-99) H Calcium Level 7.5 mg/dL (8.5-10.1) L Total Bilirubin 0.2 mg/dL (0.2-1.0) Aspartate Amino Transferase (AST) 32 U/L (15-37) Alanine Aminotransferase (ALT) 39 U/L (14-59) Alkaline Phosphatase 91 U/L (46-116) Total Protein 6.6 g/dL (6.4-8.2) Albumin 2.8 g/dL (3.4-5.0) L Albumin/Globulin Ratio 0.7 (1.0-1.7) L O2 Saturation 89 % (92-99) L Arterial Blood pH 7.50 (7.35-7.45) H Arterial Blood pCO2 at Patient Temp 30 mmHg (35-46) L Arterial Blood pO2 at Patient Temp 53 mmHg (85-108) L Arterial Blood HCO3 22 mmol/L (21-28) Arterial Blood Base Excess 0 mmol/L (-3-3) FiO2 21 Troponin I High Sensitivity 7 ng/L (4-50) Laboratory Tests 12/08/21 19:15 Laboratory Tests 12/08/21 19:15 EKG EKG [] Radiology/Procedures Radiology/Procedures [] Course & Med Decision Making Course & Med Decision Making With acute hypoxemic respiratory failure. ABG obtained given significant dyspnea/tachypnea and reveals respiratory alkalosis likely from hyperventilation in the setting of fairly significant hypoxemia (PO2 of 52.5). Pulse oximetry is reading somewhat spuriously high; calculated oxygen saturation on the basis of ABG is 89% on room air. Will place on heated and humidified high flow nasal cannula to improve work of breathing and dyspnea. Have given a dose of dexamethasone. Will admit for further care for COVID pneumonia and acute hypoxemic respiratory failure. Will place AM consultation to pulmonology. Dr. Lewis graciously accepts. CC time 49 minutes for acute hypoxemic respiratory failure. Dragon Disclaimer Dragon Disclaimer This electronic medical record was generated, in whole or in part, using a voice recognition dictation system. Departure Departure Impression: Primary Impression: Pneumonia due to COVID-19 virus Additional Impression: Acute hypoxemic respiratory failure due to COVID-19 Disposition: ADMITTED INPATIENT Condition: GUARDED Referrals: HUNTER LEWIS MD (PCP) Problem Qualifiers STONEY VIZCAINO MD Dec 08, 2021 20:41
[2021-12-08] MEDS ORDERED: ONDANSETRON PF 4 MG/2 ML VIAL. IVP PRN (21:00)
[2021-12-08] MEDS ORDERED: POTASSIUM CHLORIDE 20 MEQ TABLET.ER. PO ONE (21:30)
[2021-12-08 22:17] VITALS: BP 116/61
[2021-12-08] MEDS: IV NORMAL SALINE 1000ML BAG 1,000 ML IV SCH (22:28)
[2021-12-08] MEDS: ACETAMINOPHEN 325 MG TABLET. PO PRN (22:28)
[2021-12-08] MEDS ORDERED: BUDE180A IH (22:48)
[2021-12-08] MEDS ORDERED: FLUO40CA2 PO (22:48)
[2021-12-08] MEDS ORDERED: QUET100T4 PO (22:48)
--- NOTE | 2021-12-08 23:00 | NUR ---
ADMIT NOTE The patient, JOSH DELUNA, 36 y/o, F admitted by HUNTER ANGELES MD, was given written information regarding hospital policies, unit procedures and contact persons. Patient admitted to unit via gurney from ED; A&O x4, VSS, and O2 saturation 97% on vapotherm. Patient admit packet reviewed and patient's allergies, home medications and pharmacy verified. Patient orientated to room and plan of care discussed. Patient now in bed, call light within reach, and bed in lowest/locked position; no other needs voiced by patient at this time.
[2021-12-08 23:02] VITALS: BP 106/59
[2021-12-08] MEDS ORDERED: C.DIFF MED SCREEN BY RX. MC ONE (23:15)
[2021-12-09 03:00] VITALS: BP 121/64
[2021-12-09 04:14] LABS: BASO % 0 % (0-3); EOS % 0 % (0-3); HEMATOCRIT 35.6 % (36.0-47.0); LYMPH # 0.4 x10^3/uL (1.0-4.8); LYMPH % 5 % (24-48); MEAN CORPUSCULAR HEMOGLOBIN 28 pg (25-35); MEAN CORPUSCULAR HGB CONC 34 g/dL (31-37); MEAN CORPUSCULAR VOLUME 84 fL (79-100); MONO # 0.4 x10^3/uL (0.0-1.1); MONO % 4 % (0-9); NEUT # 7.6 x10^3/uL (1.8-7.7); NEUT % 90 % (31-73); PLATELET COUNT 193 x10^3/uL (140-400); RED BLOOD COUNT 4.23 x10^6/uL (3.50-5.40); RED CELL DISTRIBUTION WIDTH 13.7 % (11.5-14.5); WHITE BLOOD COUNT 8.4 x10^3/uL (4.0-11.0)
[2021-12-09 04:22] LABS: CALCIUM 7.3 mg/dL (8.5-10.1); GFR 76.3; POTASSIUM 4.8 mmol/L (3.5-5.1)
--- NOTE | 2021-12-09 05:59 | EKG ---
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
[2021-12-09 07:00] VITALS: BP 149/91
[2021-12-09] MEDS: DEXAMETHASONE 4 MG TABLET PO SCH (08:43)
[2021-12-09] MEDS: FAMOTIDINE 20 MG TABLET. PO SCH ×2 (08:43→20:25)
[2021-12-09] MEDS: IV NORMAL SALINE 1000ML BAG 1,000 ML IV SCH ×2 (08:44→17:00)
[2021-12-09] MEDS ORDERED: ENOXAPARIN 40 MG/0.4 ML SYRINGE. SQ SCH (09:00)
--- NOTE | 2021-12-09 09:10 | CONS ---
DATE OF CONSULTATION: 12/09/2021 REASON FOR CONSULTATION: I was asked to see this 36-year-old lady for acute respiratory failure. HISTORY OF PRESENT ILLNESS: She does not smoke. She has a history of asthma and Behcet disease. She is COVID positive, has had symptoms over 10 days and shortness of breath and cough and weakness. She presented to the Emergency Room earlier yesterday, was sent home since she was not hypoxic. She returned to the Emergency room via EMS for shortness of breath. She was found to have O2 saturation in 80s in room air. She is currently on Vapotherm 15 liters per minute on 40% FiO2. She feels better. She has not had a sleep study. PAST MEDICAL HISTORY: Asthma, pseudotumor cerebri, Behcet syndrome, cholecystectomy, tonsillectomy. ALLERGIES: PENICILLIN, ADHESIVE, MORPHINE. MEDICATIONS: Currently, she is on Zofran and Tylenol p.r.n. SOCIAL HISTORY: She does not smoke. FAMILY HISTORY: Hypertension. REVIEW OF SYSTEMS: As mentioned as above, other systems otherwise negative. PHYSICAL EXAMINATION: GENERAL: This is an obese lady. VITAL SIGNS: Her O2 saturation on Vapotherm is 99%, respiratory rate 20, heart rate 66, blood pressure 121/64, temperature 98. Her maximum temperature was 101.2. She is not in distress. HEENT: Normocephalic, atraumatic. CARDIOVASCULAR: Regular rate and rhythm. CHEST INSPECTION: There is no accessory muscle use. ABDOMEN: Obese. EXTREMITIES: There is no edema. SKIN: No rash. NEUROLOGIC: Alert and oriented. IMAGING: I reviewed the following lab data: CT angiogram of the chest did not show central pulmonary embolism, bilateral multifocal infiltrate with partial right lower lobe consolidation was noted and reactive hilar lymphadenopathy noted. WBC 8.4, hemoglobin 12, platelets 193. Sodium 141, potassium 4.8, chloride 107, CO2 is 22, BUN 7, creatinine 1, glucose 111, AST 32, ALT 39, alkaline phosphatase 91. Troponin 7. ABG: pH 7.5, pCO2 of 30, pO2 of 53 on room air. IMPRESSION: 1. Acute hypoxemic respiratory failure secondary to COVID-19 pneumonia and acute lung injury. No central PE. 2. Abnormal CT of the chest. 3. COVID-19 pneumonia. 4. Obesity, suspect obstructive sleep apnea-hypopnea syndrome. 5. History of asthma. 6. Pseudotumor cerebri. 7. Behcet syndrome. PLAN AND RECOMMENDATIONS: 1. Titrate FiO2 to keep O2 saturation 92%. 2. Start dexamethasone 6 mg daily. 3. Start remdesivir, side effects were discussed with the patient. She understood and agreed to proceed. 4. Start Lovenox for DVT prophylaxis. 5. Start Pepcid for stress ulcer prophylaxis. 6. She is out of window for Actemra. 7. Sleep study as an outpatient. 8. The findings and recommendations were discussed with RN. Thank you very much for allowing me to participate in care of this very nice lady. SARAH DR: Marco TID: [id number]
[2021-12-09] MEDS: ACETAMINOPHEN 325 MG TABLET. PO PRN ×2 (09:58→20:31)
[2021-12-09 11:00] VITALS: BP_SYST 102; BP_SYST 129; BP_DIAS 57; BP_DIAS 87
[2021-12-09] MEDS ORDERED: ALBUTEROL SULFATE 2.5 MG/3 ML NEBU. INH PRN (11:45)
[2021-12-09] MEDS: FLUoxetine HCL 20 MG CAPSULE PO SCH (12:11)
--- NOTE | 2021-12-09 12:14 | PDOC ---
Provider Note Date of Service: DATE: 12/09/21 TIME: 12:11 Provider Note [id number] Justifications for Admission Other Justification HUNTER ANGELES MD Dec 09, 2021 12:14
[2021-12-09] MEDS ORDERED: REMDESIVIR LOAD in IV NORMAL SALINE 250ML TV IV ONE (13:00)
--- NOTE | 2021-12-09 13:25 | HP ---
DATE OF SERVICE: 12/09/2021 ADMIT DATE: 12/08/2021 CHIEF COMPLAINT: COVID pneumonia. HISTORY OF PRESENT ILLNESS: A 36-year-old black female who was tested positive in the ER about 3 days ago and has come to the ER three times now for shortness of breath and increasing hypoxia. She was admitted last night with a pO2 of 52 and is on Vapotherm and feels a little better at this point. She has pleuritic bilateral chest pain, but no sputum production, hemoptysis or chilling or fever. Vaccine status was not discussed. PAST HISTORY: MEDICATIONS: Listed per the chart. ALLERGIES: PENICILLIN AND MORPHINE NOTED. PAST SURGICAL HISTORY: No other serious surgical problems. SOCIAL HISTORY: Nonsmoker, , employed, physically active. FAMILY HISTORY: Unremarkable. REVIEW OF SYSTEMS: No other complaints. OBJECTIVE: ENT: All within normal limits. Vapotherm in place. NECK: No masses, nodes or bruits. LUNGS: Bibasilar crackles with no tachypnea present. CARDIOVASCULAR: Regular rate. Rate 100. No murmurs heard. ABDOMEN: Obese, soft, nontender. EXTREMITIES: Good pedal and radial pulses. No edema. NEUROLOGIC: Physiologic and nonfocal. Mental status is intact. ASSESSMENT: Bilateral COVID pneumonia with secondary hypoxia. PLAN: Decadron, remdesivir, IV fluids and supportive oxygenation. LIBBY/ALFRED/BRENT ESCOBAR: LIBBY/betty TID: [id number]
[2021-12-09 15:00] VITALS: BP 108/63
[2021-12-09] MEDS: POTASSIUM CL 20MEQ D5-0.45NACL 1,000 ML IV SCH (15:17)
[2021-12-09 19:45] VITALS: BP 125/68
[2021-12-09] MEDS: QUEtiapine 100 MG TABLET. PO SCH ×2 (20:25→20:27)
[2021-12-09 22:50] VITALS: BP 106/59
[2021-12-10 02:30] VITALS: BP 116/67
[2021-12-10] MEDS: POTASSIUM CL 20MEQ D5-0.45NACL 1,000 ML IV SCH ×2 (04:17→18:22)
[2021-12-10 07:00] VITALS: BP 154/84
--- NOTE | 2021-12-10 07:44 | PDOC ---
PULMONARY PROGRESS NOTES DATE: 12/10/21 TIME: 07:42 Subjective feels better on vapotherm 15 lpm 45% fio2 Vitals Vital Signs Date Time Temp Pulse Resp B/P (MAP) Pulse Ox O2 Delivery O2 Flow Rate FiO2 12/10/21 02:30 97.5 87 20 116/67 (83) 100 High Flow Nasal Cannula 15.0 97.5 Comments alert no distress nc at rrr no accessory muscle use abd obese no rash Labs Laboratory Tests Test 12/08/21 19:15 12/08/21 19:45 12/09/21 03:30 White Blood Count 7.2 x10^3/uL (4.0-11.0) 8.4 x10^3/uL (4.0-11.0) Red Blood Count 4.74 x10^6/uL (3.50-5.40) 4.23 x10^6/uL (3.50-5.40) Hemoglobin 13.0 g/dL (12.0-15.5) 12.0 g/dL (12.0-15.5) Hematocrit 40.1 % (36.0-47.0) 35.6 % (36.0-47.0) Mean Corpuscular Volume 85 fL (79-100) 84 fL (79-100) Mean Corpuscular Hemoglobin 27 pg (25-35) 28 pg (25-35) Mean Corpuscular Hemoglobin Concent 33 g/dL (31-37) 34 g/dL (31-37) Red Cell Distribution Width 13.7 % (11.5-14.5) 13.7 % (11.5-14.5) Platelet Count 190 x10^3/uL (140-400) 193 x10^3/uL (140-400) Neutrophils (%) (Auto) 85 % (31-73) 90 % (31-73) Lymphocytes (%) (Auto) 10 % (24-48) 5 % (24-48) Monocytes (%) (Auto) 5 % (0-9) 4 % (0-9) Eosinophils (%) (Auto) 0 % (0-3) 0 % (0-3) Basophils (%) (Auto) 0 % (0-3) 0 % (0-3) Neutrophils # (Auto) 6.1 x10^3/uL (1.8-7.7) 7.6 x10^3/uL (1.8-7.7) Lymphocytes # (Auto) 0.7 x10^3/uL (1.0-4.8) 0.4 x10^3/uL (1.0-4.8) Monocytes # (Auto) 0.4 x10^3/uL (0.0-1.1) 0.4 x10^3/uL (0.0-1.1) Eosinophils # (Auto) 0.0 x10^3/uL (0.0-0.7) 0.0 x10^3/uL (0.0-0.7) Basophils # (Auto) 0.0 x10^3/uL (0.0-0.2) 0.0 x10^3/uL (0.0-0.2) Sodium Level 141 mmol/L (136-145) 141 mmol/L (136-145) Potassium Level 3.2 mmol/L (3.5-5.1) 4.8 mmol/L (3.5-5.1) Chloride Level 105 mmol/L (98-107) 107 mmol/L (98-107) Carbon Dioxide Level 25 mmol/L (21-32) 22 mmol/L (21-32) Anion Gap 11 (6-14) 12 (6-14) Blood Urea Nitrogen 7 mg/dL (7-20) 7 mg/dL (7-20) Creatinine 1.2 mg/dL (0.6-1.0) 1.0 mg/dL (0.6-1.0) Estimated GFR (Cockcroft-Gault) 61.9 76.3 BUN/Creatinine Ratio 6 (6-20) Glucose Level 111 mg/dL (70-99) 147 mg/dL (70-99) Calcium Level 7.5 mg/dL (8.5-10.1) 7.3 mg/dL (8.5-10.1) Total Bilirubin 0.2 mg/dL (0.2-1.0) Aspartate Amino Transf (AST/SGOT) 32 U/L (15-37) Alanine Aminotransferase (ALT/SGPT) 39 U/L (14-59) Alkaline Phosphatase 91 U/L (46-116) Total Protein 6.6 g/dL (6.4-8.2) Albumin 2.8 g/dL (3.4-5.0) Albumin/Globulin Ratio 0.7 (1.0-1.7) O2 Saturation 89 % (92-99) Arterial Blood pH 7.50 (7.35-7.45) Arterial Blood pCO2 at Patient Temp 30 mmHg (35-46) Arterial Blood pO2 at Patient Temp 53 mmHg (85-108) Arterial Blood HCO3 22 mmol/L (21-28) Arterial Blood Base Excess 0 mmol/L (-3-3) FiO2 21 Troponin I High Sensitivity 7 ng/L (4-50) Medications Active Scripts Medications Dose Route/Sig Max Daily Dose Days Date Category Fluoxetine Hcl 40 Mg Capsule 40 Mg PO DAILY 12/08/21 Reported Seroquel (Quetiapine Fumarate) 100 Mg Tablet 1 Tab PO QHS 12/08/21 Reported Pulmicort Flexhaler (Budesonide) 180 Mcg Aer.pow.ba 2 Puff IH BID 12/08/21 Reported Ibuprofen 600 Mg Tablet 600 Mg PO PRN Q6HRS PRN 07/31/21 Rx Proair Hfa Inhaler (Albuterol Sulfate) 8.5 Gm Hfa.aer.ad 1 Puff INH PRN Q6HRS PRN 01/18/19 Rx Naproxen Sodium 550 Mg Tablet 1 Tab PO BID 04/18/17 Rx Albuterol Sulfate Hfa Inhaler (Albuterol Sulfate) 8.5 Gm Hfa.aer.ad 8.5 Gm IH 01/30/14 Reported Vitamin D (Cholecalciferol (Vitamin D3)) 10,000 Unit Capsule 10,000 Unit PO 11/26/13 Reported Multi Vitamin Daily (Multivitamin) 1 Each Tablet 1 Each PO 11/26/13 Reported Impression . IMPRESSION: 1. Acute hypoxemic respiratory failure secondary to COVID-19 pneumonia and acute lung injury. No central PE. 2. Abnormal CT of the chest. 3. COVID-19 pneumonia. 4. Obesity, suspect obstructive sleep apnea-hypopnea syndrome. 5. History of asthma. 6. Pseudotumor cerebri. 7. Behcet syndrome. Plan . PLAN AND RECOMMENDATIONS: 1. Titrate FiO2 to keep O2 saturation 92%. may try HFNC 2. dexamethasone 6 mg daily. 3. remdesivir, side effects were discussed with the patient. She understood and agreed to proceed. 4. Lovenox for DVT prophylaxis. 5. Pepcid for stress ulcer prophylaxis. 6. She is out of window for Actemra. 7. Sleep study as an outpatient. 8. The findings and recommendations were discussed with RN. VALERIE OTOOLE MD Dec 10, 2021 07:44
[2021-12-10] MEDS: FLUoxetine HCL 20 MG CAPSULE PO SCH (08:47)
[2021-12-10] MEDS: FAMOTIDINE 20 MG TABLET. PO SCH ×2 (08:47→22:07)
[2021-12-10] MEDS: DEXAMETHASONE 4 MG TABLET PO SCH (08:47)
--- NOTE | 2021-12-10 09:43 | PDOC ---
Provider Note Date of Service: DATE: 12/10/21 TIME: 09:42 Provider Note status same, no temp or new sxs, no tachypnea, wheezing- labs ok- on dexz, remdes, iv flyuid, lovenox, cont same Justifications for Admission Other Justification HUNTER ANGELES MD Dec 10, 2021 09:43
[2021-12-10] MEDS: ENOXAPARIN 40 MG/0.4 ML SYRINGE. SQ SCH ×2 (10:38→22:08)
[2021-12-10] MEDS: CYCLOBENZAPRINE 10 MG TABLET. PO PRN (10:38)
[2021-12-10 11:00] VITALS: BP 151/91
[2021-12-10] MEDS: REMDESIVIR 100mg in NORMAL SALINE 250ML X 4 DAYS IV SCH (13:37)
[2021-12-10 15:00] VITALS: BP 129/71
[2021-12-10 19:46] VITALS: BP 115/70
[2021-12-10] MEDS: QUEtiapine 100 MG TABLET. PO SCH ×2 (21:00→22:07)
[2021-12-10 22:39] VITALS: BP 130/75
[2021-12-11 02:51] VITALS: BP 130/65
[2021-12-11 07:00] VITALS: BP 118/69
--- NOTE | 2021-12-11 08:10 | PDOC ---
Provider Note Date of Service: DATE: 12/11/21 TIME: 08:08 Provider Note status same, afeb, vss, still high pO2 but good marivel- no new labs- cont dexa, remdes, follow O2 need, will need home O2 Justifications for Admission Other Justification HUNTER ANGELES MD Dec 11, 2021 08:09
[2021-12-11] MEDS ORDERED: ALBUTEROL SULFATE 2.5 MG/3 ML NEBU. INH PRN (08:13)
[2021-12-11] MEDS: FAMOTIDINE 20 MG TABLET. PO SCH ×2 (08:23→20:44)
[2021-12-11] MEDS: DEXAMETHASONE 4 MG TABLET PO SCH (08:23)
[2021-12-11] MEDS: FLUoxetine HCL 20 MG CAPSULE PO SCH (08:23)
[2021-12-11] MEDS: LIDOCAINE (700MG/PATCH) PATCH. TD SCH (09:34)
--- NOTE | 2021-12-11 10:05 | PDOC ---
PULMONARY PROGRESS NOTES DATE: 12/11/21 TIME: 10:02 Subjective feels better O2 at 4L NC, eating well. Vitals Vital Signs Date Time Temp Pulse Resp B/P (MAP) Pulse Ox O2 Delivery O2 Flow Rate FiO2 12/11/21 07:00 97.1 62 18 118/69 (85) 100 High Flow Nasal Cannula 15.0 97.1 Comments alert no distress nc at 4L rrr no accessory muscle use abd obese no rash Medications Active Scripts Medications Dose Route/Sig Max Daily Dose Days Date Category Fluoxetine Hcl 40 Mg Capsule 40 Mg PO DAILY 12/08/21 Reported Seroquel (Quetiapine Fumarate) 100 Mg Tablet 1 Tab PO QHS 12/08/21 Reported Pulmicort Flexhaler (Budesonide) 180 Mcg Aer.pow.ba 2 Puff IH BID 12/08/21 Reported Ibuprofen 600 Mg Tablet 600 Mg PO PRN Q6HRS PRN 07/31/21 Rx Proair Hfa Inhaler (Albuterol Sulfate) 8.5 Gm Hfa.aer.ad 1 Puff INH PRN Q6HRS PRN 01/18/19 Rx Naproxen Sodium 550 Mg Tablet 1 Tab PO BID 04/18/17 Rx Albuterol Sulfate Hfa Inhaler (Albuterol Sulfate) 8.5 Gm Hfa.aer.ad 8.5 Gm IH 01/30/14 Reported Vitamin D (Cholecalciferol (Vitamin D3)) 10,000 Unit Capsule 10,000 Unit PO 11/26/13 Reported Multi Vitamin Daily (Multivitamin) 1 Each Tablet 1 Each PO 11/26/13 Reported Impression . IMPRESSION: 1. Acute hypoxemic respiratory failure secondary to COVID-19 pneumonia and acute lung injury. No central PE. 2. Abnormal CT of the chest. 3. COVID-19 pneumonia. 4. Obesity, suspect obstructive sleep apnea-hypopnea syndrome. 5. History of asthma. 6. Pseudotumor cerebri. 7. Behcet syndrome. Plan . PLAN AND RECOMMENDATIONS: 1. Titrate FiO2 to keep O2 saturation 92%. Currently 4L NC. 2. dexamethasone 6 mg daily. 3. remdesivir, side effects were discussed with the patient. She understood and agreed to proceed. 4. Lovenox for DVT prophylaxis. 5. Pepcid for stress ulcer prophylaxis. 6. She is out of window for Actemra. 7. Sleep study as an outpatient. 8. The findings and recommendations were discussed with RN. GERBER MINOR MD Dec 11, 2021 10:05
[2021-12-11 11:00] VITALS: BP 119/73
[2021-12-11] MEDS: REMDESIVIR 100mg in NORMAL SALINE 250ML X 4 DAYS IV SCH (13:36)
--- NOTE | 2021-12-11 14:03 | NUR ---
SS following for discharge planning. SS reviewed pt chart and discussed with pt RN. Pt is from home and is currently requiring oxygen at six liters nasal canula. COVID19 positive. Pt on IV Remdesivir and PO Decadron. Not ready. SS will continue to follow for discharge planning.
[2021-12-11 15:00] VITALS: BP 108/61
[2021-12-11] MEDS: CYCLOBENZAPRINE 10 MG TABLET. PO PRN (18:45)
[2021-12-11 19:50] VITALS: BP 115/73
[2021-12-11] MEDS: QUEtiapine 100 MG TABLET. PO SCH ×2 (20:44→20:50)
[2021-12-11] MEDS: PATCH REMOVAL. MC SCH (21:00)
[2021-12-11 23:05] VITALS: BP 128/71
[2021-12-12 03:20] VITALS: BP 114/71
[2021-12-12 07:00] VITALS: BP 145/79
--- NOTE | 2021-12-12 08:11 | PDOC ---
Provider Note Date of Service: DATE: 12/12/21 TIME: 08:10 Provider Note day 4 remdes- looks and feels better, O2 better also- will finish remdes 12/13, likely home after on O2 re 6 min walk Justifications for Admission Other Justification HUNTER ANGELES MD Dec 12, 2021 08:11
[2021-12-12] MEDS: FAMOTIDINE 20 MG TABLET. PO SCH ×2 (08:31→22:06)
[2021-12-12] MEDS: FLUoxetine HCL 20 MG CAPSULE PO SCH (08:32)
[2021-12-12] MEDS: ENOXAPARIN 40 MG/0.4 ML SYRINGE. SQ SCH (08:32)
[2021-12-12] MEDS: LIDOCAINE (700MG/PATCH) PATCH. TD SCH (08:32)
[2021-12-12] MEDS: DEXAMETHASONE 4 MG TABLET PO SCH (08:32)
[2021-12-12 11:00] VITALS: BP 113/62
[2021-12-12] MEDS: REMDESIVIR 100mg in NORMAL SALINE 250ML X 4 DAYS IV SCH (13:18)
--- NOTE | 2021-12-12 14:40 | NUR ---
SS following up with discharge planning. SS reviewed pt chart and discussed with pt RN. Pt is currently requiring oxygen at four liters nasal canula. COVID19 positive. Pt on IV Remdesivir and PO Decadron. Discharge plan is currently to home when medically ready for discharge. Probable need for six minute walk prior to discharge to assess oxygen needs. SS will continue to follow for discharge planning.
[2021-12-12 15:00] VITALS: BP 113/64
[2021-12-12 19:00] VITALS: BP 123/72
[2021-12-12] MEDS: QUEtiapine 100 MG TABLET. PO SCH (21:00)
[2021-12-12] MEDS: PATCH REMOVAL. MC SCH (21:00)
[2021-12-12 23:00] VITALS: BP 137/74
--- NOTE | 2021-12-12 23:09 | NUR ---
pt refuses seroquel, she said she doesnt take it any more. lcrn
[2021-12-13 03:00] VITALS: BP 113/70
[2021-12-13 07:00] VITALS: BP 122/73
--- NOTE | 2021-12-13 07:49 | PDOC ---
Provider Note Date of Service: DATE: 12/13/21 TIME: 07:48 Provider Note vss, O2 need less ,exam same- will finish remdes today, do 6 min walk, can dc when pulm ok as well Justifications for Admission Other Justification HUNTER ANGELES MD Dec 13, 2021 07:49
[2021-12-13] MEDS ORDERED: DEXAMETHASONE 4 MG TABLET PO SCH (08:00)
[2021-12-13] MEDS: FLUoxetine HCL 20 MG CAPSULE PO SCH (09:33)
[2021-12-13] MEDS: ENOXAPARIN 40 MG/0.4 ML SYRINGE. SQ SCH (09:33)
[2021-12-13] MEDS: FAMOTIDINE 20 MG TABLET. PO SCH (09:33)
[2021-12-13] MEDS: LIDOCAINE (700MG/PATCH) PATCH. TD SCH (09:34)
[2021-12-13 11:00] VITALS: BP 123/75
[2021-12-13] MEDS: REMDESIVIR 100mg in NORMAL SALINE 250ML X 4 DAYS IV SCH (13:26)
--- NOTE | 2021-12-13 14:45 | NUR ---
SS following up with discharge planning. SS reviewed pt chart and discussed with pt RN. Pt completed six minute walk today did not require home oxygen. COVID19 positive. Pulmonology signed off. Pt on PO medications. Discharge plan is currently to home when medically ready for discharge. Dr. Lewis notified. Dr. Lewis provided instructions via phone for discharge to home with self care. Pt's RN contacting Dr. Lewis to discuss. SS will continue to follow for discharge planning.
[2021-12-13 15:00] VITALS: BP 133/76
--- NOTE | 2021-12-13 17:40 | NUR ---
Discharge Note: JOSH DELUNA [facility] Discharge instructions and discharge home medications reviewed with Patient and a copy given. All questions have been answered and understanding verbalized. The following instructions and handouts were given: discharge instructions, med list, COVID/PNA education, follow ups. Discontinued lines and drains: Peripheral IV intact. Patient discharged to Home or Self Care with Family Member via Wheelchair at 1740.
--- NOTE | 2021-12-14 08:19 | PDOC ---
Provider Note Date of Service: DATE: 12/14/21 TIME: 08:18 Provider Note [id number] Justifications for Admission Other Justification HUNTER ANGELES MD Dec 14, 2021 08:19
--- NOTE | 2021-12-14 11:49 | DS ---
DATE OF DISCHARGE: 12/13/2021 HOSPITAL SUMMARY: A 36-year-old black female with known COVID, came in with increasing shortness of breath and mild hypoxia. CBC and chemistry profile were unremarkable. Blood gas was consistent with respiratory alkalosis. Blood cultures with no growth. Previous chest x-ray showed bilateral infiltrates consistent with COVID pneumonia. She was treated with IV remdesivir and dexamethasone and gradually improved where her oxygen status improved and her 6-minute walk prior to discharge did not show desaturation below 92%. She is comfortable to be followed as an outpatient at this point. FINAL DIAGNOSIS: COVID-19 pneumonia with secondary hypoxia and respiratory alkalosis. OPERATIONS, PROCEDURES, AND COMPLICATIONS: None. CONSULTATION: Dr. Archer, Pulmonary. DISPOSITION: Home meds remain the same. No new medications. She is off the steroids at this point. Office followup as needed with gradual recovery expected. She will address the COVID immunization at a later time. MICHELET/BRENT ESCOBAR: René TID: [id number]
== END 2021-12-13 17:40 | disposition home or self-care (01) | DRG 177 ==
LOC: ER 18:52 → 5 NORTH 20:58 → 6 SOUTH 22:06 → OBSVTOIN 12-09 20:43
PROVIDERS: ADMIT Family Medicine; ATTEND Family Medicine
PROC: 5A0935A Assistance with Respiratory Ventilation, Less than 24 Consecutive Hours, High Flow/Velocity Cannula (ICD-10-PCS; principal; 2021-12-09)
PROC: XW033E5 Introduction of Remdesivir Anti-infective into Peripheral Vein, Percutaneous Approach, New Technology Group 5 (ICD-10-PCS; 2021-12-09)
PROC: 5A0935A Assistance with Respiratory Ventilation, Less than 24 Consecutive Hours, High Flow/Velocity Cannula (ICD-10-PCS; 2021-12-10)
PROC: 5A0935A Assistance with Respiratory Ventilation, Less than 24 Consecutive Hours, High Flow/Velocity Cannula (ICD-10-PCS; 2021-12-11)
DX: U07.1 COVID-19 (principal); J96.01 Acute respiratory failure with hypoxia; J12.82 Pneumonia due to coronavirus disease 2019; E87.3 Alkalosis; M35.2 Behcet's disease; E66.9 Obesity, unspecified; G93.2 Benign intracranial hypertension; J45.909 Unspecified asthma, uncomplicated; Z82.49 Family history of ischemic heart disease and other diseases of the circulatory system; Z91.040 Latex allergy status; Z88.0 Allergy status to penicillin; Z91.048 Other nonmedicinal substance allergy status
CPT/HCPCS: 36415; 36600; 80048; 80053; 82805; 84484; 85025; 87040; 93005; 94618; 94640; 96361; 96374; G0378; G0379; J1100; J1650; J3480; J7030; J7050; 99291-25